=== PATIENT | female | born 1940 | race Caucasian/White ===

== ENCOUNTER 2023-03-06 14:23 | Outpatient (OUT) | payer MEDICARE, SELFPAY ==
--- NOTE | 2023-03-06 15:00 | CA_ITS ---
Patient: LARRY LOJA Exam Date: 03/06/2023 : 1940 Gender:F Ordering : DR KATIE GÓMEZ M.D. Admission #: [id number] Family : Order #: [id number] CLICK HERE TO VIEW EXAM ECHOCARDIOGRAM REPORT PROCEDURE: CA ECHO DOPPLER COMPLETE INDICATIONS: Shortness of breath, hypertension COMPARISON: None. DESCRIPTION: COMPLETE ECHOCARDIOGRAM Real-time transthoracic echocardiography with 2D, M-mode, spectral and color flow Doppler performed. QUALITY: Technical quality was good. LEFT VENTRICLE: Normal chamber size. Normal left ventricular wall thickness. Normal systolic function. LV EF: Normal left ventricular ejection fraction, (>55%). DIASTOLIC: Diastolic function is indeterminate. ATRIAL SEPTUM: Visually appears intact. LEFT ATRIUM: Mild dilatation. RIGHT ATRIUM: Normal chamber size. RIGHT VENTRICLE: Normal chamber size. Normal right ventricular systolic function. TRICUSPID VALVE: Normal mobility and thickness. No stenosis with mild regurgitation. No evidence of pulmonary hypertension. RVSP 33 mmHg MITRAL VALVE: Mildly thickened with normal mobility. No evidence of mitral valve stenosis. Mild mitral annular calcification. Trivial mitral regurgitation. AORTIC VALVE: Normal trileaflet appearance. No visible sclerosis. Normal leaflet mobility. No evidence of aortic valve stenosis. No aortic regurgitation. AORTIC ROOT: Normal diameter and appearance. PULMONIC VALVE: Normal thickness and mobility. No stenosis. No regurgitation. PERICARDIUM: No evidence of pericardial effusion. IVC: Collapses with inspirations. PLEURA: CONCLUSION: 1. Normal left ventricular systolic function. LVEF is 60 to 65%. 2. Normal right ventricular size and systolic function. 3. Mild tricuspid regurgitation. 4. Normal right-sided pressures. 5. No pericardial effusion. Adult Echocardiography Procedure Report Left Ventricle LVEDD (3.7 - 5.6 cm): 4.30 cm LVESD (2.2 - 4.0 cm): 2.95 cm LVIVS thickness (0.6 - 1.2 cm): 0.91 cm LVPW thickness (0.5 - 1.0 cm): 0.87 cm e': 0.07 m/s E - e': 6.62 LVOT Max Gradient: 2.50 mm[Hg] LVOT Area (cm2): 0.79 m/s Peak Velocity (LVOT): 0.79 m/s Mean Velocity (LVOT): 0.50 m/s LVOT Diameter 1.98 cm Left Atrium LA Volume Index (2D A2C): 37.82 ml/m2 Left Atrium Systolic Dimension: 3.12 cm Mitral Valve MV E to A Ratio: 0.49 Mitral Valve A-Wave Peak Velocity: 0.94 m/s Mitral Valve E-Wave Peak Velocity: 0.46 m/s Right Ventricle Aorta AO Root Diam: 3.19 cm Ascending Ao Diam: 2.59 cm Aortic Valve AoV Area (Peak Ubaldo): 3.20 cm2, 3.20 cm2 Peak Velocity(Antegrade Flow): 0.76 m/s Peak Gradient(Antegrade Flow): 2.32 mm[Hg] Tricuspid Valve Peak Velocity (Regurgitant Flow): 2.63 m/s, 2.81 m/s, 2.75 m/s Pulmonic Valve Peak Velocity: 0.94 m/s Peak Gradient: 4.12 mm[Hg], 3.04 mm[Hg] Right Atrium Right Atrium Systolic Pressure: 36.87 ml, 36.87 ml Dictated by: David Best M.D. on 03/06/2023 at 18:40 Approved by: David Best M.D. on 03/06/2023 at 18:43
== END 2023-03-06 14:24 | disposition home or self-care (01) ==
LOC: CARD 14:26
PROVIDERS: PCP Family Medicine; Visit Provider Internal Medicine Interventional Cardiology
DX: R06.02 Shortness of breath (principal); I07.1 Rheumatic tricuspid insufficiency
CPT/HCPCS: 93306

== ENCOUNTER 2023-06-20 11:25 | Outpatient (OUT) | payer MEDICARE, SELFPAY ==
--- NOTE | 2023-06-20 | XR_ITS ---
The [address] [address] Patient Name: LARRY LOJA MRN: [id number] date: 1940 Sex: F Assigned Patient Location: [facility] Current Patient Location: [facility] Accession/Order Number: [id number] Exam Date: 06/20/2023 11:47 Report Date: 06/20/2023 14:57 At the request of: LAINEY GRISSOM Procedure: XR hip BI w PEL 1V EXAMINATION: XR hip BI w PEL 1V HISTORY: M16.0; Primary osteoarthritis keiry hips ; chronic bilateral hip pain COMPARISON: No relevant comparison available. FINDINGS: RIGHT FINDINGS: BONES: Right hip replacement without evidence of hardware fracture or loosening. No bone fracture dislocation. SOFT TISSUES: No visible soft tissue swelling. OTHER: Negative. LEFT FINDINGS: BONES: Marked narrowing of left hip joint space with subchondral sclerosis and cysts. No fracture or dislocation. SOFT TISSUES: No visible soft tissue swelling. OTHER: Degenerative disc disease of lumbar spine. XR/XR hip BI w PEL 1V IMPRESSION: RIGHT CONCLUSION: Right hip replacement without evidence of hardware failure or acute abnormality. 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 Electronically authenticated by: JACKSON LARA Date: 06/20/2023 14:57
== END 2023-06-20 11:26 | disposition home or self-care (01) ==
LOC: RAD 11:26
PROVIDERS: PCP Family Medicine; Visit Provider Family Medicine
DX: M16.0 Bilateral primary osteoarthritis of hip (principal); Z96.641 Presence of right artificial hip joint; M16.12 Unilateral primary osteoarthritis, left hip
CPT/HCPCS: 73523

== ENCOUNTER 2023-08-06 08:20 | Outpatient (OUT) | payer MEDICARE, SELFPAY ==
[2023-08-06 08:42] LABS: Basophils Percent Auto 0.4 % (0.2-2.0); Eosinophils Absolute Auto 0.1 10^3/uL (0.0-0.7); Eosinophils Percent Auto 1.9 % (0.9-7.0); Hematocrit 42.2 % (36.0-48.0); Hemoglobin 13.2 g/dL (12.0-16.0); Immature Granulocytes Abs Auto 0.01 10^3/uL (0.00-0.03); Immature Granulocytes Pct Auto 0.2 % (0.0-0.5); Lymphocytes Absolute Auto 2.3 10^3/uL (1.2-3.8); Mean Corpuscular HGB Conc 31.3 g/dL (29.9-35.2); Mean Corpuscular Hemoglobin 29.1 pg (26.7-34.0); Mean Platelet Volume 9.7 fL (9.5-13.5); Monocytes Absolute Auto 0.5 10^3/uL (0.3-0.8); Monocytes Percent Auto 8.5 % (1.7-12.0); Neutrophils Absolute Auto 2.7 10^3/uL (1.4-6.5); Platelet Count 223 10^3/uL (150-450); Red Blood Count 4.54 10^6/uL (4.20-5.40); Red Cell Distribution Width 13.2 % (11.0-15.0); White Blood Count 5.7 10^3/uL (4.0-11.0)
[2023-08-06 11:00] LABS: Alanine Aminotransferase 24 U/L (14-59); Albumin Level 3.6 g/dL (3.4-5.0); Alkaline Phosphatase 72 U/L (46-116); Anion Gap 10.2; Aspartate Amino Transferase 21 U/L (15-37); BUN Creatinine Ratio 18.8; Bilirubin Total 0.5 mg/dL (0.2-1.0); Carbon Dioxide 30.7 mmol/L (21.0-32.0); Chloride 106 mmol/L (98-107); Chol HDL Ratio 1.9; Cholesterol 171 mg/dL (<=200); Estimated GFR (African America >60 (>=60); Estimated GFR (Non-African Ame >60 (>=60); Globulin 3.7 g/dL; Glucose 101 mg/dL (74-106); HDL Cholesterol 88 mg/dL (40-60); Potassium 3.9 mmol/L (3.5-5.1); Sodium 143 mmol/L (136-145); Total Protein 7.3 g/dL (6.4-8.2); Triglycerides 46 mg/dL (<=150); VLDL CHOLESTEROL 9.2 mg/dL
== END 2023-08-06 08:21 | disposition home or self-care (01) ==
LOC: LAB 08:21
PROVIDERS: PCP Family Medicine; Visit Provider Nurse Practitioner Acute Care
DX: I25.10 Atherosclerotic heart disease of native coronary artery without angina pectoris (principal)
CPT/HCPCS: 36415; 80053; 80061; 85025

== ENCOUNTER 2024-01-12 12:18 | Outpatient (OUT) | payer MEDICARE, SELFPAY ==
[2024-01-12 13:24] LABS: Basophils Percent Auto 0.1 % (0.2-2.0); Eosinophils Absolute Auto 0.1 10^3/uL (0.0-0.7); Hematocrit 41.4 % (36.0-48.0); Hemoglobin 13.1 g/dL (12.0-16.0); Immature Granulocytes Abs Auto 0.01 10^3/uL (0.00-0.03); Immature Granulocytes Pct Auto 0.1 % (0.0-0.5); Lymphocytes Absolute Auto 1.9 10^3/uL (1.2-3.8); Lymphocytes Percent Auto 27.5 % (20.5-60.0); Mean Corpuscular HGB Conc 31.6 g/dL (29.9-35.2); Mean Corpuscular Hemoglobin 28.7 pg (26.7-34.0); Mean Corpuscular Volume 90.8 fL (81.0-99.0); Mean Platelet Volume 11.1 fL (9.5-13.5); Monocytes Absolute Auto 0.5 10^3/uL (0.3-0.8); Monocytes Percent Auto 7.4 % (1.7-12.0); Neutrophils Absolute Auto 4.3 10^3/uL (1.4-6.5); Neutrophils Percent Auto 63.9 % (43.0-75.0); Platelet Count 232 10^3/uL (150-450); Red Blood Count 4.56 10^6/uL (4.20-5.40); Red Cell Distribution Width 13.1 % (11.0-15.0); White Blood Count 6.8 10^3/uL (4.0-11.0)
[2024-01-12 14:43] LABS: Free T4 1.16 ng/dL (0.76-1.46)
[2024-01-12 14:48] LABS: Alanine Aminotransferase 25 U/L (14-59); Albumin Level 3.7 g/dL (3.4-5.0); Alkaline Phosphatase 81 U/L (46-116); Anion Gap 11.2; Aspartate Amino Transferase 22 U/L (15-37); BUN Creatinine Ratio 16.7; Bilirubin Total 0.7 mg/dL (0.2-1.0); Calcium 9.5 mg/dL (8.5-10.1); Carbon Dioxide 31.2 mmol/L (21.0-32.0); Chloride 103 mmol/L (98-107); Estimated GFR (African America >60 (>=60); Estimated GFR (Non-African Ame >60 (>=60); Free T3 2.41 pg/mL (2.18-3.98); Globulin 3.6 g/dL; Glucose 101 mg/dL (74-106); Potassium 4.4 mmol/L (3.5-5.1); Sodium 141 mmol/L (136-145); Thyroid Stimulating Hormone 3.817 uIU/mL (0.358-3.740); Total Protein 7.3 g/dL (6.4-8.2)
== END 2024-01-12 12:19 | disposition home or self-care (01) ==
LOC: LAB 12:21
PROVIDERS: PCP Family Medicine; Visit Provider Internal Medicine Interventional Cardiology
DX: I44.1 Atrioventricular block, second degree (principal); R00.1 Bradycardia, unspecified
CPT/HCPCS: 36415; 80053; 84439; 84443; 84481; 85025

== ENCOUNTER 2024-07-24 12:37 | Emergency (ER) | payer MEDICARE, SELFPAY ==
[2024-07-24] VITALS (37 sets, daily range): BP systolic 59–165; BP diastolic 33–93; PULSE 70–112; TEMP 36.6; O2SAT 85–98; BMI 21.5
--- OUTSIDE RECORDS SUMMARY | 2024-07-24 12:48 | XMS_ITS | CCD ---
Author Organization [facility] Care Team Providers Care Company Doctor Name Role Phone DR JOSÉ MANUEL GRISSOM A Primary Care Unavailable GENE, DR DU Attending Unavailable GENE, DR DU Consulting Unavailable GENE, DR DU Admitting Unavailable OLI EDMONDS Referring Unavailable OSVALDOOLI Referring Unavailable DEENA MORALES Attending Unavailable RICO, ERYN Attending Unavailable ELMARTINEZ, ERYN Attending Unavailable RICO, ERYN Attending Unavailable OLI EDMONDS Referring Unavailable OSVALDO, OLI Admitting Unavailable OLI EDMONDS Attending Unavailable ROHAN MIRANDA Attending Unavailable José Manuel Grissom MD Primary Care Provider JOSÉ MANUEL GRISSOM Attending Unavailable SHAIKH CASTILLO Attending Unavailable JOSÉ MANUEL GRISSOM Attending Unavailable Medications Current Medications Medication Drug Class(es) Dates Sig (Normalized) Sig (Original) aspirin 81 mg delayed release oral tablet (4 sources) Platelet Aggregation Inhibitor, Nonsteroidal Anti-inflammatory Drug take 1 tablet by mouth in the morning aspirin 81 MG EC tablet Take 81 mg by mouth in the morning. Active atorvastatin 20 mg oral tablet (4 sources) HMG-CoA Reductase Inhibitor Start: 06-02-2023 take 1 tablet by mouth at bedtime atorvastatin (Lipitor) 20 MG tablet Take 20 mg by mouth at bedtime 06/02/2023 Active eluxadoline 100 mg oral tablet (5 sources) mu-Opioid Receptor Agonist Start: 06-07-2024 End: 06-10-2024 take 1 tablet by mouth in the morning Eluxadoline (Viberzi) 100 MG tablet Indications: Irritable bowel syndrome with diarrhea Take 100 mg by mouth in the morning and at noon 180 tablet 3 06/10/2024 Active 24 hr isosorbide mononitrate 60 mg extended release oral tablet (4 sources) Nitrate Vasodilator Start: 09-29-2023 take 1 tablet by mouth in the morning, then take 1 tablet by mouth every twenty-four hours isosorbide mononitrate ER (Imdur) 60 MG 24 hr tablet Take 60 mg by mouth in the morning. 09/29/2023 Active 24 hr metoprolol succinate 50 mg extended release oral tablet (6 sources) beta-Adrenergic Aleah Start: 06-02-2024 take 1 tablet by mouth once daily metoprolol succinate XL (Toprol-XL) 50 MG 24 hr tablet Take 50 mg by mouth Daily 06/02/2024 Active Start: 01-12-2024 End: 06-21-2024 take 1 tablet by mouth once daily metoprolol succinate XL (Toprol-XL) 25 MG 24 hr tablet Take 25 mg by mouth Daily 01/12/2024 06/21/2024 Discontinued Multiple Vitamin (multivitamin) tablet (4 sources) take 1 tablet by erickson th once daily Multiple Vitamin (multivitamin) tablet Take 1 tablet by mouth Daily Active Problems Active Problems Problem Classification Problem Date Documented Da te Episodic/Chronic Conduction disorders (14 sources) Presence of cardiac pacemaker; Translations: [Encounter for adjustment and management of automatic implantable cardiac defibrillator] Onset: 01-15-2024 Chronic Coronary atherosclerosis and other heart disease (14 sources) Atherosclerotic heart disease of [place] coronary artery without angina pectoris; Translations: [Atherosclerotic heart disease of [place] coronary artery with other forms of angina pectoris] Onset: 07-02-2022 Chronic Disorders of lipid metabolism (7 sources) Hyperlipidemia, unspecified; Translations: [Dyslipidemia] Onset: 07-07-2022 12-23-2023 Chronic Essential hypertension (6 sources) Benign essential hypertension; Translations: [Essential (primary) hypertension] Onset: 12-23-2023 12-23-2023 Chronic Hypertension with complications and secondary hypertension (6 sources) 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 heart failure; Translations: [Benign hypertensive heart disease without congestive heart failure] Onset: 01-15-2024 Chronic Osteoarthritis (6 sources) Primary coxarthrosis, bilateral; Translations: [Bilateral primary osteoarthritis of hip] Onset: 12-23-2023 12-23-2023 Chronic Other aftercare (4 sources) Long-term current use of drug therapy; Translations: [Other shelter (current) drug therapy] Onset: 06-21-2024 06-21-2024 Episodic Other gastrointestinal disorders (7 sources) Irritable bowel syndrome with diarrhea; Translations: [Irritable bowel syndrome with diarrhea] Onset: 12-23-2023 06-10-2024 Chronic Thyroid disorders (4 sources) Subclinical hypothyroidism; Translations: [Other specified hypothyroidism] Onset: 06-21-2024 06-21-2024 Chronic Past or Other Problems Problem Classification Problem Date Documented Da te Episodic/Chronic Cardiac dysrhythmias (6 sources) Bradycardia, unspecified; Translations: [Sinus bradycardia] Onset: 01-12-2024 Episodic Mycoses (4 sources) Onychomycosis; Translations: [Tinea unguium] Onset: 12-23-2023 Resolved: 06-21-2024 12-23-2023 Episodic Nonspecific chest pain (2 sources) Chest pain, unspecified; Translations: [Chest pain, unspecified] Onset: 01-12-2024 Episodic Other aftercare (4 sources) Post-discharge follow-up; Translations: [Encounter for follow-up examination after completed treatment for conditions other than malignant neoplasm] Onset: 01-20-2024 Resolved: 06-21-2024 01-20-2024 Episodic Residual codes; unclassified (2 sources) Other specified personal risk factors, not elsewhere classified; Translations: [Other specified personal risk factors, not elsewhere classified] Onset: 01-15-2024 Episodic Results Test Name Value Interpretation Reference Range Facility Office Visiton 04-19-2024 Follow-up visit [id number] Terri Handy 1940 F Date Provider Department Center 04/19/2024 Natacha-ERYN IRWIN Family History Problem Relation Age of Onset Coronary artery disease Mother Heart attack Father Family Status - Relation Status Age at Mother Father Level of Service:60815 OR OFFICE/OUTPATIENT ESTABLISHED MOD MDM 30 MIN [facility] Telephoneon 03-04-2024 Telephone [id number] Terri Handy 1940 F Date Provider Department Center 03/04/2024 IMANI BURK Family History Problem Relation Age of Onset Coronary artery disease Mother Heart attack Father Family Status - Relation Status Age at Mother Father [facility] Office Visiton 01-23-2024 Follow-up visit [id number] Terri Handy 1940 F Date Provider Department Center 01/23/2024 [id number]NANikolai CARD [facility] Family History Problem Relation Age of Onset Coronary artery disease Mother Heart attack Father Family Status - Relation Status Age at Mother Father Level of Service:79544 OR OFFICE/OUTPATIENT ESTABLISHED LOW MDM 20 MIN [facility] 30on 01-16-2024 30 Problem: Pain - Adul t Goal: Verbalizes/displays adequate comfort level or baseline comfort level Outcome: Progressing Problem: Safety - Adult Goal: Free from fall injury Outcome: Progressing Flowsheets (Taken 01/16/2024 0800) Free from fall injury: Assess patient frequently for physical needs Instruct patient to call for assistance with activity based on assessment Modify environment to reduce risk of injury Problem: Discharge Planning Goal: Discharge to home or other facility with appropriate resources Outcome: Progressing Problem: Chronic Conditions and Co-morbidities Goal: Patient's chronic conditions and co-morbidity symptoms are monitored and maintained or improved Outcome: Progressing The patient is Moderately Stable - Low risk of patient condition declining or worsening The patient's goals for the shift include comfort, rest The clinical goals for the shift include vss, safety [facility] 30 This report has been cancelled. [facility] DSon 01-16-2024 DS ---- -------- Attestation signed by Oli Edmonds MD at 01/17/2024 10:20 AM By using the attestations below, the signing clinician agrees that I have read and verify that the documentation has been personally reviewed by me and ensure that the documentation accurately reflects the encounter. GC: I personally saw this patient on the day of the encounter, performed the sherman portion(s) of the service and participated in the management and confirm the resident's documentation. Please note there may be an additional personal documentation from me. -------- Admission Admitted 01/15/2024 for Second degree AV block Discharge Diagnosis Second degree AV block S/p Dual chamber PPM Discharge Disposition Home or Self Care () Discharge Medications Your medication list START taking these medications Instructions Last Dose Given Next Dose Due doxycycline 100 mg capsule Commonly known as: Vibramycin Take 1 capsule (100 mg) by mouth in the morning and at bedtime for 26 doses. Take with at least 8 ounces (large glass) of water, do not lie down for 30 minutes after. Take all doses until bottle is empty. metoprolol succinate XL 50 mg 24 hr tablet Commonly known as: Toprol-XL Start taking on: January 17, 2024 Take 1 tablet (50 mg) by mouth in the morning. Do not crush or chew. Do not start before January 17, 2024. CONTINUE taking these medications Instructions Last Dose Given Next Dose Due aspirin 81 mg EC tablet atorvastatin 20 mg tablet Commonly known as: Lipitor Take 1 tablet (20 mg) by mouth at bedtime. isosorbide mononitrate ER 60 mg 24 hr tablet Commonly known as: Imdur TAKE 1 TABLET IN THE MORNING Viberzi 100 mg tablet Generic drug: eluxadoline STOP taking these medications NIFEdipine XL 30 mg 24 hr tablet Commonly known as: Procardia XL Where to Get Your Medications These medications were sent to [id number] - [place], [place] - [address] [facility] [address] [place] [address] doxycycline 100 mg capsule These medications were sent to [facility] - [place], [place] - [address] [facility] [address] [facility] [id number] metoprolol succinate XL 50 mg 24 hr tablet Activity For 1 month No driving for 1 month No strenuous activity for 1 month Range of motion restrictions: do not lift elbow above level of shoulder for 1 month. You can wear the sling as neeede to remind you of this No showering until dressing is removed Diet Allergies Patient has no known allergies. Hospital Course Terri Handy is a 83 y.o. female who resides in [place], [place]. 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 She had initial evaluation by Dr. Irwin, 01/12/24 at the [facility] for CP, SOB and bradycardia, with EKG showing 2nd degree AV block type II with 2:1 block. Her metoprolol XL was reduced to 25mg and event monitor placed. On 01/15/24 she was urgently evaluated by Dr. Deena Morales at our clinic for findings on event monitor of two 4-second pauses due to high-grade second-degree AV block and on the second it showed 5 bradycardia events due to severe sinus bradycardia associated with ventricular escape rhythm. She states that she still has occasional dizziness but they are usually brief, she denies syncope. She still has pounding of the heart. No chest pain since last visit. She denies exertional dyspnea, orthopnea or paroxysmal nocturnal dyspnea. She feels tired all the time. Plan to change metoprolol to nifedipine XL. She was sent to [facility] for urgent PPM for symptomatic bradycardia, due to combination of second-degree A-V block and occasional a profound sinus bradycardia with ventricular escape rhythm and prolonged pauses up to 4 seconds as described on the event monitor strips. Recommendation for nuc MPS to further evaluate SOB and CP, which had been ordered at prior visit. She had uneventful implant of DC PPM by Dr. Edmonds on 01/15/24. Postprocedure chest x-ray shows no pneumothorax, and this morning device interrogation shows normal function. Today patient says that she is did not feel well after taking this morning's dose of nifedipine, very much wanting to go home. Son is at bedside. Discussed findings, activity, lifting, and bathing restrictions with written information to print with AVS. Follow-up appointments have been made for wound care check, device clinic and MD follow-up. She will complete 2 weeks of antibiotics. She has been up and out of bed, denies CPOE, CHRISTIE, positional lightheadedness, palpitations, racing heart beats, syncope or near syncope, orthopnea, PND, lower extremity edema, GI or other bleeding. Discussed elevated blood pressures, with goal below 130/80, with combination of low-sodium diet, medication (more content not included)... [facility] NURSNOTEon 01-16-2024 NURSNOTE Discharge paperwork gone over and explained to pt. All questions answered at bedside. Denied further questions. Pt wheeled to main entrance where she was transported home by son. [facility] 30on 01-15-2024 30 The patient is Moderately Stable - Low risk of patient condition declining or worsening The patient's goals for the shift include The clinical goals for the shift include stable vs [facility] CONSULTon 01-15-2024 CONSULT [place] Electrophysiology Consult Note [place] [facility] - [facility] Reason for visit: Bradycardia HPI: Terri Handy is a 83 y.o. year old with past medical history of HLD/ HTN was sen by Dr Morales and noted to have bradycardia. She has fatigue and tiredness. She was seen by Dr. Gaviria and she was evaluated for chest pain and bradycardia. Her EKG showed at that time second-degree AV block type II with 2-1 block. At that time he reduced her metoprolol XL from 50 mg to 25 mg and she was provided with the event monitor which showed bradycardia events on couple days. On the first day she had two 4-second pauses due to high-grade second-degree AV block and on the second it showed 5 bradycardia events due to severe sinus bradycardia associated with ventricular escape rhythm She was told to come for follow-up visit and was seen by Dr Morales today at [place] She states that she still has occasional dizziness but they are usually brief, she denies syncope. She still has pounding of the heart. No chest pain since last visit. She denies exertional dyspnea, orthopnea or paroxysmal nocturnal dyspnea. She feels tired all the time The patient states that she is not aware that she snores during the night. She does not report sleepiness during the daytime before she had the bradycardia. PMH: Past Medical History: Diagnosis Date Abnormal ECG Coronary artery disease Hyperlipidemia Hypertension PSH: Past Surgical History: Procedure Laterality Date CARDIAC CATHETERIZATION TOTAL HIP ARTHROPLASTY SH: Social Determinants of Health Tobacco Use: Medium Risk (01/15/2024) Patient History Smoking Tobacco Use: Former Smokeless Tobacco Use: Never Passive Exposure: Not on file Alcohol Use: Not on file Financial Resource Strain: Not on file Food Insecurity: Not on file Transportation Needs: Not on file Physical Activity: Not on file Stress: Not on file Social Connections: Not on file Intimate Partner Violence: Unknown (10/30/2023) [place] Safety & Environment Fear of Current or Ex-Partner: Not on file Emotionally Abused: Not on file Physically Abused: Not on file Sexually Abused: Not on file Physically or Sexually Abused: Not on file Depression: Not on file Housing Stability: Not on file Utilities: Not on file Allergies: No Known Allergies Weight: @WEIGHT@ Visit Vitals BP (!) 181/64 Pulse 54 Resp 16 SpO2 97% Smoking Status Former Meds: No current facility-administered medications on file prior to encounter. Current Outpatient Medications on File Prior to Encounter Medication Sig Dispense Refill aspirin 81 mg EC tablet Take 81 mg by mouth in the evening. atorvastatin (Lipitor) 20 mg tablet Take 1 tablet (20 mg) by mouth at bedtime. 90 tablet 3 isosorbide mononitrate ER (Imdur) 60 mg 24 hr tablet TAKE 1 TABLET IN THE MORNING 90 tablet 3 Viberzi 100 mg tablet Take 100 mg by mouth in the morning. NIFEdipine XL (Procardia XL) 30 mg 24 hr tablet Take 1 tablet (30 mg) by mouth once daily as directed. Do not crush, chew, or split. 30 tablet 0 [DISCONTINUED] metoprolol succinate XL (Toprol-XL) 25 mg 24 hr tablet Take 1 tablet (25 mg) by mouth in the morning. Do not crush or chew. 90 tablet 3 [DISCONTINUED] metoprolol succinate XL (Toprol-XL) 50 mg 24 hr tablet Take 1 tablet (50 mg) by mouth in the morning. 90 tablet 3 ROS: Cardio Basic Cardiovascular Symptoms: no lightheadedness, no leg edema, no syncope, no orthopnea, no PND, no claudication, Constitutional Constitutional: no fever, no night sweats, no significant weight gain, no significant weight loss, no exercise intolerance Eyes Eyes: no dry eyes, no irritation, no vision change ENMT Ears: no difficulty hearing, no ear pain Nose: no frequent nosebleeds, Mouth/Throat: no sore throat, no bleeding gums, no snoring, no dry mouth, no mouth ulcers, no oral abnormalities, no teeth problems Respiratory Respiratory: no cough, no wheezing, no coughing up blood, no sleep apnea Musculoskeletal Musculoskeletal: no muscle aches, no muscle weakness, joint pain+, no back pain, no swelling in the extremities Integumentary Skin no rash, no ulcer, no varicosities, no discoloration, no pruritus Neurologic Neurologic: no loss of consciousness, no weakness, no numbness, no seizures, no dizziness, no headaches Psychiatric Psych: no depression, feeling safe in relationship, no alcohol abuse, Hematologic/Lymphatic Hematologic/Lymphatic no swollen glands, no bruising Physical Exam: Constitutional General Appearance: well-nourished, well-developed, appears stated age Level of Distress: comfortable Psychiatric Mental Status: alert, normal affect Orientation: oriented to time, place, and person Insight: good judgement Eyes Lids and Conjunctivae: non-injected, no xanthelasma ENMT Ears: no lesions on external ear Nose: no lesions on external nose Oropharynx: no cyanosis, no p (more content not included)... [facility] 01-15-2024 H&P reviewed. The patient was examined and there are no changes to the H&P. [facility] [place] Office Cardiology Clinic Note Reason for follow-up: Symptomatic bradycardia Chief Complaint: Chest pain, palpitation, dizziness HPI: Terri Handy is a 83 y.o. female who was seen few days ago in this office by Dr. Gaviria and she was evaluated for chest pain and bradycardia. Her EKG showed at that time second-degree AV block type II with 2-1 block. At that time he reduced her metoprolol XL from 50 mg to 25 mg and she was provided with the event monitor which showed bradycardia events on couple days. On the first day she had two 4-second pauses due to high-grade second-degree AV block and on the second it showed 5 bradycardia events due to severe sinus bradycardia associated with ventricular escape rhythm She was told to come for follow-up visit. She states that she still has occasional dizziness but they are usually brief, she denies syncope. She still has pounding of the heart. No chest pain since last visit. She denies exertional dyspnea, orthopnea or paroxysmal nocturnal dyspnea. She feels tired all the time The patient states that she is not aware that she snores during the night. She does not report sleepiness during the daytime before she had the bradycardia. Cardiology ROS: All systems were reviewed and they were negative except for the positive findings noted above in the history past Medical History She has a past medical history of Abnormal ECG, Coronary artery disease, Hyperlipidemia, and Hypertension. Surgical History She has a past surgical history that includes Cardiac catheterization and Total hip arthroplasty. Social History She reports that she quit smoking about 39 years ago. Her smoking use included cigarettes. She has never used smokeless tobacco. She reports current alcohol use. No history on file for drug use. Family History Family History Problem Relation Name Age of Onset Coronary artery disease Mother Heart attack Father Allergies Patient has no known allergies. Medications Current Outpatient Medications: aspirin 81 mg EC tablet, Take 81 mg by mouth in the morning., Disp: , Rfl: atorvastatin (Lipitor) 20 mg tablet, Take 1 tablet (20 mg) by mouth at bedtime., Disp: 90 tablet, Rfl: 3 isosorbide mononitrate ER (Imdur) 60 mg 24 hr tablet, TAKE 1 TABLET IN THE MORNING, Disp: 90 tablet, Rfl: 3 Viberzi 100 mg tablet, Take 100 mg by mouth in the morning., Disp: , Rfl: NIFEdipine XL (Procardia XL) 30 mg 24 hr tablet, Take 1 tablet (30 mg) by mouth once daily as directed. Do not crush, chew, or split., Disp: 30 tablet, Rfl: 0 Last Recorded Vitals Visit Vitals BP 174/58 (BP Location: Left arm, Patient Position: Sitting) Pulse (!) 42 Ht 1.626 m (5' 4 ) Wt 57.2 kg (126 lb) SpO2 96% BMI 21.63 kg/m??? Smoking Status Former BSA 1.61 m??? Physical Examination: GENERAL: alert and oriented x3, well developed, in no acute distress. HEAD: atraumatic, normocephalic. EYES: DARCY, EOMI. NECK: trachea midline, no JVD present, no carotid bruits present. CARDIAC: Bradycardic, S1, S2 present. RRR. No murmur, rubs, or gallops. RESPIRATORY: CTAB, no increased effort of breathing, no rales, rhonchi, or wheezing. ABDOMEN: soft, nontender, nondistended. EXTREMITIES: no lower extremity edema, peripheral pulses are 2+ bilaterally. No rash/skin discoloration present. NEURO: strength/sensation equal and symmetric in bilateral upper and lower extremities. PSYCH: appropriate mood, affect, and judgement. Last Images: EKG 01/12/2024 showed sinus rhythm with second-degree AV block heart rate 40 bpm, right axis deviation, nonspecific intraventricular conduction delay Cardiac catheterization 04/27/1998: 30% proximal circumflex Subtotal obstruction distal half posterior descending 20% proximal RCA Normal overall left ventricular systolic function Labs: 01/12/2024 White blood count 6.8, hemoglobin 13, platelets 252 Sodium 141, potassium 4.4, BUN 11, creatinine 0.66, glucose 101, GFR above 60, calcium 9.5 Total bilirubin 0.7, AST 22, ALT 25, alk phos 81, total protein 7.3 TSH 3.817(normal 0.358-3.74), free T32.4, free T41.16 Assessment and Plan: 1. Symptomatic bradycardia, due to combination of second-degree A-V block and occasional a profound sinus bradycardia as described on the event monitor strips. -I will discontinue Toprol-XL altogether -I think the patient need pacemaker I actually discussed that while the patient was in the office with data manager Dr. Edmonds and we will arrange for her to have the pacemaker placed later today. That was discussed with the patient and her son including the details of the procedure as well as the benefits and risks. She is agreeable. 2. Second degree AV block with high grade block on couple occasion causing prolonged pauses up to 4 seconds - Case Request EP Lab: Implant PPM 3. Sinus bradycardia, she had couple episodes with profound sinus bradycardia with ventricular es (more content not included)... [facility] NURSNOTEon 01-15-2024 NURSNOTE Chlorhexadine wipes and nasal antiseptic swab completed [facility] Office Visiton 01-15-2024 Follow-up visit [id number] Terri Handy 1940 F Date Provider Department Center 01/15/2024 [id number] MORALES Family History Problem Relation Age of Onset Coronary artery disease Mother Heart attack Father Family Status - Relation Status Age at Mother Father Level of Service:[id number] OR OFFICE/OUTPATIENT ESTABLISHED MOD MDM 30 MIN [facility] 36on 01-14-2024 36 Regarding critical reports on event monitor: MD Shruti Tompkins MA Caller: Unspecified (Today, 8:57 AM) She needs a pacemaker - 1. If she is having lightheadeness, dizziness or any symptoms while her heart rates are low, please inform the patient that I would recommend admission to the hospital and a PPM 2. If she is having no symptoms, please have her seen by Dr Edmonds or any GLOBAL SUPPLY CHAIN DIRECTOR sreekanth (today/tomorrow) to arrange for outpatient PPM Thanks Imani, can you please call her? [facility] 36 I have scanned in a few critical reports on patient's event monitor for you to view in her instructional media services technician. Thanks! [facility] Office Visiton 01-12-2024 Follow-up visit [id number] Chet Handykaron Holland 1940 F Date Provider Department Center 01/12/2024 ERYN CASTELLANO Family History Problem Relation Age of Onset Coronary artery disease Mother Heart attack Father Family Status - Relation Status Age at Mother Father Level of Service:81939 OR OFFICE/OUTPATIENT ESTABLISHED HIGH MDM 40 MIN [facility] Office Visiton 08-14-2023 Follow-up visit [id number] Christie Handyaustyn Holland 1940 F Date Provider Department Center 08/14/2023 ERYN CASTELLANO Family History Problem Relation Age of Onset Coronary artery disease Mother Heart attack Father Family Status - Relation Status Age at Mother Father Level of Service:11529 OR OFFICE/OUTPATIENT ESTABLISHED LOW MDM 20-29 MIN [facility] CBC AUTO DIFFon 07-02-2022 BASO # 0.0 103/ul Normal 0.0-0.1 [facility] Comment on above: Performed By: #### C BC #### [facility] [address] [address] [address] Miranda Anderson Basophils/100 WBC (Bld) 0.3 % Normal 0.2-2.0 [facility] Comment on above: Performed By: #### C BC #### [facility] [address] [place] [address] Dr. Miranda Anderson EO # 0.1 103/ul Normal 0.0-0.7 [facility] Comment on above: Performed By: #### C BC #### [facility] [address] [place] [address] Dr. Miranda Anderson Eosinophils/100 WBC (Bld) 2.1 % Normal 0.9-7.0 [facility] Comment on above: Performed By: #### C BC #### [facility] [address] [place] [address] Dr. Miranda Anderson Erythrocyte distribution width (RBC) [Ratio] 14.3 % Normal 11.0-15.0 [facility] Comment on above: Performed By: #### C BC #### [facility] [address] [place] [address] Dr. Miranda Anderson Hematocrit (Bld) [Volume fraction] 43.3 % Normal 36.0-48.0 [facility] Comment on above: Performed By: #### C BC #### [facility] [address] [place] [address] Dr. Miranda Anderson Hemoglobin (Bld) [Mass/Vol] 13.5 g/dL Normal 12.0-16.0 [facility] Comment on above: Performed By: #### C BC #### [facility] [address] [place] [address] Dr. Miranda Anderson IG # 0.01 10e3/ul Normal 0.00-0.03 [facility] Comment on above: Performed By: #### C BC #### [facility] [address] [place] [address] Dr. Miranda Anderson IG % 0.2 % Normal 0.0-0.5 [facility] Comment on above: Performed By: #### C BC #### [facility] [address] [place] [address] Dr. Miranda Anderson LYMPH # 3.3 103/ul Normal 1.2-3.8 [facility] Comment on above: Performed By: #### C BC #### [facility] [address] [place] [address] Dr. Miranda Anderson Lymphocytes/100 WBC (Bld) 51.6 % Normal 20.5-60.0 [facility] Comment on above: Performed By: #### C BC #### [facility] [address] [place] [address] Dr. Miranda Anderson MANUAL DIFF REQ NO Normal [facility] Comment on above: Performed By: #### C BC #### [facility] [address] [place] [address] Dr. Miranda Anderson MCH (RBC) [Entitic mass] 28.1 pg Normal 26.7-34.0 [facility] Comment on above: Performed By: #### C BC #### [facility] [address] [place] [address] Dr. Miranda Anderson MCHC (RBC) [Mass/Vol] 31.2 g/dL Normal 29.9-35.2 [facility] Comment on above: Performed By: #### C BC #### [facility] [address] [place] [address] Dr. Miranda Anderson MCV (RBC) [Entitic vol] 90.2 fL Normal 81.0-99.0 [facility] Comment on above: Performed By: #### C BC #### [facility] [address] [place] [address] Dr. Miranda Anderson MONO # 0.6 103/ul Normal 0.3-0.8 [facility] Comment on above: Performed By: #### C BC #### [facility] [address] [place] [address] Dr. Miranda Anderson Monocytes/100 WBC (Bld) 9.4 % Normal 1.7-12.0 [facility] Comment on above: Performed By: #### C BC #### [facility] [address] [place] [address] Dr. Miranda Anderson NEUT # 2.3 103/ul Normal 1.4-6.5 [facility] Comment on above: Performed By: #### C BC #### [facility] [address] [place] [address] Dr. Miranda Anderson Neutrophils/100 WBC (Bld) 36.4 % Critically low 43.0-75.0 [facility] Comment on above: Performed By: #### C BC #### [facility] [address] [place] [address] Dr. Miranda Anderson Platelet mean volume (Bld) [Entitic vol] 12.3 fL Normal 9.5-13.5 [facility] Comment on above: Performed By: #### C BC #### [facility] [address] [place] [address] Dr. Miranda Anderson PLT 241 103/ul Normal 150-450 [facility] Comment on above: Performed By: #### C BC #### [facility] [address] [place] [address] Dr. Miranda Anderson RBC 4.80 106/ul Normal 4.20-5.40 [facility] Comment on above: Performed By: #### C BC #### [facility] [address] [place] [address] Dr. Miranda Anderson WBC 6.3 103/ul Normal 4.0-11.0 [facility] Comment on above: Performed By: #### C BC #### [facility] [address] [place] [address] Dr. Miranda Anderson LIPID PROFILEon 07-02-2022 CHOL-HDL RATIO NORM SEE BELOW Normal [facility] Comment on above: Result Comment: 3.3 - 4.4 LOW RISK 4.4 - 7.1 AVERAGE RISK 7.1 - 11.0 MODERATE RISK >11.0 HIGH RISK Performed By: #### C MP, LIPID #### [facility] [address] [place] [address] Dr. Miranda Anderson Cholesterol [Mass/Vol] 142 mg/dL Normal <=200 [facility] Comment on above: Performed By: #### C MP, LIPID #### [facility] [address] [place] [address] Dr. Miranda Anderson Cholesterol in HDL [Mass/Vol] 71 mg/dL Critically high 40-60 [facility] Comment on above: Performed By: #### C MP, LIPID #### [facility] [address] [address] [address] Miranda Anderson Cholesterol in LDL [Mass/Vol] 61.2 mg/dL Normal [facility] Comment on above: Performed By: #### C MP, LIPID #### [facility] [address] [address] [address] Miranda Anderson Cholesterol.total /Cholesterol in HDL [Mass ratio] 2.0 {ratio} Normal [facility] Comment on above: Performed By: #### C MP, LIPID #### [facility] [address] [place] [address] Dr. Miranda Anderson HDL NORMAL > or = 60 mg/dl - LO W CARDIOVASCULAR RISK <40 mg/dl - HIGH CARDIOVASCULAR RISK Normal [facility] Comment on above: Performed By: #### C MP, LIPID #### [facility] [address] [place] [address] Dr. Miranda Anderson LDL CALC NORMAL SEE BELOW Normal The [facility] Comment on above: Result Comment: <100 mg/dl OPTIMAL 100 - 129 mg/dl NEAR OR ABOVE OPTIMAL 130 - 159 mg/dl BORDERLINE HIGH 160 - 189 mg/dl HIGH >190 mg/dl VERY HIGH Performed By: #### C MP, LIPID #### [facility] [address] [place] [address] Dr. Miranda Anderson Triglyceride [Mass/Vol] 49 mg/dL Normal <=150 [facility] Comment on above: Performed By: #### C MP, LIPID #### [facility] [address] [place] [address] Dr. Miranda Anderson VLDL CALC 9.8 mg/dL Normal [facility] Comment on above: Performed By: #### C MP, LIPID #### [facility] [address] [place] [address] Dr. Miranda Anderson PROF 14(COMP METB)on 022 Albumin [Mass/Vol] 3.5 g/dL Normal 3.4-5.0 [facility] Comment on above: Performed By: #### C MP, LIPID #### [facility] [address] [place] [address] Dr. Miranda Anderson Albumin/Globulin [Mass ratio] 1.0 {ratio} Normal [facility] Comment on above: Performed By: #### C MP, LIPID #### [facility] [address] [address] [address] Miranda Anderson ALP [Catalytic activity/Vol] 71 U/L Normal 46-116 [facility] Comment on above: Performed By: #### C MP, LIPID #### [facility] [address] [address] [address] Miranda Anderson ALT [Catalytic activity/Vol] 21 U/L Normal 14-59 [facility] Comment on above: Performed By: #### C MP, LIPID #### [facility] [address] [address] [address] Miranda Anderson Anion gap [Moles/Vol] 7.3 mmol/L Normal [facility] Comment on above: Performed By: #### C MP, LIPID #### [facility] [address] [address] [address] Miranda Anderson AST [Catalytic activity/Vol] 21 U/L Normal 15-37 [facility] Comment on above: Performed By: #### C MP, LIPID #### [facility] [address] [address] [address] Miranda Anderson Bilirubin [Mass/Vol] 0.4 mg/dL Normal 0.2-1.0 [facility] Comment on above: Performed By: #### C MP, LIPID #### [facility] [address] [address] [address] Miranda Anderson Calcium [Mass/Vol] 8.8 mg/dL Normal 8.5-10.1 [facility] Comment on above: Performed By: #### C MP, LIPID #### [facility] [address] [address] [address] Miranda Anderson Chloride [Moles/Vol] 106 mmol/L Normal 98-107 [facility] Comment on above: Performed By: #### C MP, LIPID #### [facility] [address] [address] [address] Miranda Anderson CO2 [Moles/Vol] 30.0 mmol/L Normal 21.0-32.0 [facility] Comment on above: Performed By: #### C MP, LIPID #### [facility] [address] [address] [address] Miranda Anderson Creatinine [Mass/Vol] 0.64 mg/dL Normal 0.55-1.02 [facility] Comment on above: Performed By: #### C MP, LIPID #### [facility] [address] [address] [address] Miranda Anderson EGFR-AF CYPRIOT >60 Normal >=60 [facility] Comment on above: Performed By: #### C MP, LIPID #### [facility] [address] [address] [address] Miranda Anderson EGFR-NON AF CYPRIOT >60 Normal >=60 [facility] Comment on above: Performed By: #### C MP, LIPID #### [facility] [address] [place] [address] Dr. Miranda Anderson Globulin (S) [Mass/Vol] 3.4 g/dL Normal [facility] Comment on above: Performed By: #### C MP, LIPID #### [facility] [address] [place] [address] Dr. Miranda Anderson Glucose [Mass/Vol] 91 mg/dL Normal 74-106 [facility] Comment on above: Performed By: #### C MP, LIPID #### [facility] [address] [place] [address] Dr. Miranda Anderson Potassium [Moles/Vol] 4.3 mmol/L Normal 3.5-5.1 [facility] Comment on above: Performed By: #### C MP, LIPID #### [facility] [address] [place] [address] Dr. Miranda Anderson Protein [Mass/Vol] 6.9 g/dL Normal 6.4-8.2 [facility] Comment on above: Performed By: #### C MP, LIPID #### [facility] [address] [address] [address] Miranda Anderson Sodium [Moles/Vol] 139 mmol/L Normal 136-145 [facility] Comment on above: Performed By: #### C MP, LIPID #### [facility] [address] [place], [place] [address] Dr. Miranda Anderson Urea nitrogen [Mass/Vol] 12.0 mg/dL Normal 7.0-18.0 [facility] Comment on above: Performed By: #### C MP, LIPID #### [facility] [address] [place], [place] [address] Dr. Miranda Anderson Urea nitrogen/Creatini ne [Mass ratio] 18.8 mg/mg Normal [facility] Comment on above: Performed By: #### C MP, LIPID #### [facility] [address] [place], [place] [address] Dr. Miranda Anderson Vital Signs Date Time Vital Sign Value Performing Clinician Faci lity 06-21-2024 13:09-0400 Body height 162.6 cm José Manuel Grissom MD Work Phone: [facility] 06-21-2024 13:09-0400 Body mass index (BMI) [Ratio] 21.28 kg/m2 José Manuel Grisosm MD Work Phone: [facility] 06-21-2024 13:09-0400 Body temperature 97.5 [degF] José Manuel Grissom MD Work Phone: [facility] 06-21-2024 13:09-0400 Body weight 56.25 kg José Manuel Grissom MD Work Phone: [facility] 06-21-2024 13:09-0400 Diastolic blood pressure 56 mm[Hg] José Manuel Grissom MD Work Phone: [facility] 06-21-2024 13:09-0400 Heart rate 70 /min José Manuel Grissom MD Work Phone: [facility] 06-21-2024 13:09-0400 Respiratory rate 20 /min José Manuel Grissom MD Work Phone: [facility] 06-21-2024 13:09-0400 SaO2% (BldA) [Mass fraction] 99 % José Manuel Grissom MD Work Phone: [facility] 06-21-2024 13:09-0400 Systolic blood pressure 140 mm[Hg] José Manuel Grissom MD Work Phone: [facility] Encounters Encounter Date Encounter Type Care Provider Facility Start: 06-21-2024 End: 06-21-2024 [place] flowsheet José Manuel Grissom MD Work Phone: [facility] Start: 06-21-2024 End: 06-21-2024 [facility] flowsheet José Manuel Grissom MD Work Phone: [facility] Start: 06-21-2024 End: 06-21-2024 Office outpatient visit 25 minutes José Manuel Grissom MD Work Phone: [facility] Comment on above: Benign essential hyp ertension (CMS/HCC) (Primary Dx); Irritable bowel syndrome with diarrhea; Primary osteoarthritis of both hips; CAD in [place] artery (CMS/HCC); Dyslipidemia (CMS/HCC); Subclinical hypothyroidism (CMS/HCC); Encounter for long-term current use of medication Start: 06-21-2024 End: 06-21-2024 ambulatory JOSÉ MANUEL GRISSOM Not Available Start: 06-10-2024 End: 06-10-2024 Refill José Manuel Grissom MD Work Phone: [facility] Comment on above: Irritable bowel synd thang with diarrhea Start: 04-19-2024 End: 04-19[facility]: 02-24-[facility]24 End: 02-24-2024 ambulatory [facility] Start: 01-23-2024 End: 01-23-2024 [facility] Start: 01-20-2024 End: 01-20-2024 ambulatory SHAIKH JONATHAN Not Available Start: 01-16-2024 Evaluation and manag ement of inpatient [facility] Start: 01-15-2024 End: 01-16-2024 Evaluation and management of inpatient [facility] Start: 01-15-2024 End: 01-15-2024 ambulatory [facility] Start: 01-12-2024 End: 01-12-2024 ambulatory [facility] Start: 12-23-2023 End: 12-23-2023 ambulatory JOSÉ MANUEL GRISSOM Not Available Start: 08-14-2023 End: 08-14-2023 ambulatory [facility] Start: 07-02-2022 End: 07-03-[address] JOSÉ MANUEL GRISSOM Facility: Plan of Treatment Date Care Activity Detail Author Start: 06-21-2025 Medicare Annual Well ness (AWV) Medicare Annual Wellness (AWV) [facility] Start: 12-20-2024 End: 12-20-2024 Patient encounter procedure 12/20/2024 1:00 PM EDT Office Visit [facility] [address] [place] [id number] José Manuel Grissom MD [address] [place] [id number] [facility] Start: 06-21-2024 End: 06-21-2025 Basic metabolic 1998 panel - Serum or Plasma Basic metabolic panel Lab Routine Benign essential hypertension (CMS/HCC) Expected: 06/21/2024 (Approximate), Expires: 06/21/2025 [facility] Work Phone: Comment on above: Expected: 06/21/2024 (Approximate), Expires: 06/21/2025 Start: 06-21-2024 End: 06-21-2025 CBC W Auto Differential panel - Blood CBC and differential Lab Routine Encounter for long-term current use of medication Expected: 06/21/2024 (Approximate), Expires: 06/21/2025 [facility] Comment on above: Expected: 06/21/2024 (Approximate), Expires: 06/21/2025 Start: 06-21-2024 End: 06-21-2025 Hepatic function 2000 panel - Serum or Plasma Hepatic function panel Lab Routine Encounter for long-term current use of medication Expected: 06/21/2024 (Approximate), Expires: 06/21/2025 [facility] Comment on above: Expected: 06/21/2024 (Approximate), Expires: 06/21/2025 Start: 06-21-2024 End: 06-21-2025 Lipid 1996 panel - Serum or Plasma Lipid panel Lab Routine Dyslipidemia ([facility]/HCC) Expected: 06/21/2024 (Approximate), Expires: 06/21/2025 [facility] Comment on above: Expected: 06/21/2024 (Approximate), Expires: 06/21/2025 Start: 06-21-2024 End: 06-21-2025 Thyrotropin [Units/volume] in Serum or Plasma TSH Lab Routine Subclinical hypothyroidism ([facility]/HCC) Expected: 06/21/2024 (Approximate), Expires: 06/21/2025 [facility] Comment on above: Expected: 06/21/2024 (Approximate), Expires: 06/21/2025 Start: 06-21-2024 End: 06-21-2025 Thyroxine (T4) free [Mass/volume] in Serum or Plasma T4, free Lab Routine Subclinical hypothyroidism (CMS/HCC) Expected: 06/21/2024 (Approximate), Expires: 06/21/2025 [facility] Comment on above: Expected: 06/21/2024 (Approximate), Expires: 06/21/2025 Start: 06-21-2024 End: 06-21-2025 Triiodothyronine (T3) Free [Mass/volume] in Serum or Plasma T3, free Lab Routine Subclinical hypothyroidism ([facility]/HCC) Expected: 06/21/2024 (Approximate), Expires: 06/21/2025 [facility] Comment on above: Expected: 06/21/2024 (Approximate), Expires: 06/21/2025 Start: 06-21-2024 End: 06-21-2024 Patient encounter procedure [facility] Comment on above: Arrived Start: 05-09-2024 Influenza vaccination Influenza Vacc ine (#1) [facility] Start: 1946 Pneumococcal Vaccine : 65+ Years (1 of 2 - PCV) Pneumococcal Vaccine: 65+ Years (1 of 2 - PCV) [facility] Start: 1940 Medicare Annual Well ness (AWV) Medicare Annual Wellness (AWV) [facility] Immunizations Immunization Date Immunization Notes Care Provider Fa cility 06-03-2024 influenza virus vacc ine, unspecified formulation José Manuel Grissom MD Work Phone: [facility] 06-06-2023 influenza virus vacc ine, unspecified formulation José Manuel Grissom MD Work Phone: [facility] Payers Date Payer Category Payer Medicare [employer] MED[employer] ADVANTAGE [employer] MED[employer]ARE [id number] 2017-Present [address] [place] [id number] 2017 Medicare (Managed Care) [employer] EDICARE ADVANTAGE [id number] 1959 Medicare [id number] 1940 Unknown [id number] 1940 Unknown [id number] 1940 Unknown [id number] 1940 Unknown [id number] Social History Date Type Detail Facility Start: [facility]-20-2024 [facility] History of tobacco use Current smoker [facility] History of tobacco use Cigarette Smoker [facility] History of tobacco use Passive smoker [facility] Start: 01-20-2024 Tobacco use and exposure Smokeless t obacco non-user [facility] Start: 01-20-2024 End: 06-21-2024 Alcoholic beverage intake Current drinker of alcohol (finding) [facility] Start: 01-20-2024 End: 06-21-2024 History of Social function [facility] Start: 01-20-2024 End: 06-21-2024 Tobacco use panel [facility] Start: 01-20-2024 Alcohol Comment [facility]ASS[facility]AL [facility] Start: 1940 Sex assigned at Not on file N [facility] Clinical Notes 08-14-2023 to 06-21-2024 José Manuel Grissom MD - 06/21/2024 1:24 PM EDTMabhishek Grissom MD - 06/21/2024 1:24 PM EDTMabhishek Grissom MD - 06/21/2024 1:24 PM EDTMabhishek Grissom MD - 06/21/2024 1:23 PM EDT Note Date & Type Note Facility 06-21-2024 History of Present illness Narrative Associated Problem(s): Primary osteoarthritis of both hips Occasional pain and stiffness but tolerable. Use OTC PRN. Increase activity and walking. Associated Problem(s): Irritable bowel syndrome with diarrhea Symptoms controlled with viberzi and continue. Associated Problem(s): CAD in [place] artery (CMS/HCC) No pain and follow with cardiology. Associated Problem(s): Benign essential hypertension (CMS/HCC) BP controlled and monitor PRN. Images from the original note were not included. Subjective Patient ID: Terri Handy is a 83 y.o. female who presents for Follow-up (6 m). Follow up HTN, IBS, OA hip, and CAD. Patient feels well today. Checking BP PRN and typically controlled. BP normal today. Taking medication daily and tolerating without side effects. IBS controlled with viberzi. Occasional abdominal pain and cramping but tolerable. Not having urgency for BM. Not having diarrhea and able to go out to eat and do more. OA hip unchanged. Pain with walking and standing. Pain worse at end of day. Not limiting activity. Using OTC arthritis cream and not always controlling pain. CAD controlled. No chest pain and following with cardiology. Cardiology wanted to repeat stress test but declined. Review of Systems Respiratory: Negative for cough, shortness of breath and wheezing. Cardiovascular: Negative for chest pain and palpitations. Gastrointestinal: Negative for abdominal pain, diarrhea, nausea and vomiting. Genitourinary: Negative for dysuria. Objective Physical Exam Constitutional: General: She is not in acute distress. Appearance: Normal appearance. HENT: Head: Normocephalic. Right Ear: Tympanic membrane normal. Left Ear: Tympanic membrane normal. Eyes: Extraocular Movements: Extraocular movements intact. Pupils: Pupils are equal, round, and reactive to light. Cardiovascular: Rate and Rhythm: Normal rate and regular rhythm. Heart sounds: No murmur heard. No friction rub. No gallop. Pulmonary: Effort: Pulmonary effort is normal. Breath sounds: Normal breath sounds. No wheezing, rhonchi or rales. Abdominal: General: Bowel sounds are normal. There is no distension. Palpations: Abdomen is soft. Tenderness: There is no abdominal tenderness. There is no guarding or rebound. Musculoskeletal: Cervical back: Neck supple. Right lower leg: No edema. Left lower leg: No edema. Neurological: Mental Status: She is alert. Assessment/Plan Problem List Items Addressed This Visit CAD in [place] artery (CMS/HCC) No pain and follow with cardiology. Dyslipidemia (CMS/HCC) Relevant Orders Lipid panel Irritable bowel syndrome with diarrhea Symptoms controlled with viberzi and continue. Primary osteoarthritis of both hips Occasional pain and stiffness but tolerable. Use OTC PRN. Increase activity and walking. Benign essential hypertension (CMS/HCC) - Primary BP controlled and monitor PRN. Relevant Orders Basic metabolic panel Encounter for long-term current use of medication Relevant Orders CBC and differential Hepatic function panel Subclinical hypothyroidism (CMS/HCC) Relevant Orders TSH T4, free T3, free documented in this encounter [facility] 04-19-2024 Note [facility] Cardiology Clinic Note Chief Complaint: Patient here for 3 mo follow up chest pain, CAD, and AV block s/p PPM placement in January [address] Edmonds. Lexiscan was never completed due to need for PPM. She states she's still having intermittent chest pain. It woke her up during the night last week. C/o fatigue and SOB w/wo exertion. Denies palpitations and lightheadedness. HPI: Terri Handy is a 83 y.o. female With a history of mild coronary artery disease, recent pacemaker placement here in routine follow-up Feels much better after pacemaker placement; no significant lightheadedness, dizziness, syncope Still has intermittent chest heaviness with exertion. Lasts for seconds or minutes and resolves. No orthopnea, no paroxysmal external dyspnea, no lower extremity edema Cardiology ROS: Review of Systems Constitutional: Positive for malaise/fatigue. Cardiovascular: Positive for chest pain and dyspnea on exertion. Respiratory: Positive for shortness of breath. Musculoskeletal: Positive for arthritis and joint pain. All other systems reviewed and are negative. Past Medical History She has a past medical history of Abnormal ECG, Coronary artery disease, Hyperlipidemia, and Hypertension. Surgical History She has a past surgical history that includes Cardiac catheterization and Total hip arthroplasty. Social History She reports that she quit smoking about 39 years ago. Her smoking use included cigarettes. She has never used smokeless tobacco. She reports current alcohol use. No history on file for drug use. Family History Family History Problem Relation Name Age of Onset Coronary artery disease Mother Heart attack Father Allergies Patient has no known allergies. Medications Current Outpatient Medications: aspirin 81 mg EC tablet, Take 81 mg by mouth in the evening., Disp: , Rfl: atorvastatin (Lipitor) 20 mg tablet, Take 1 tablet (20 mg) by mouth at bedtime., Disp: 90 tablet, Rfl: 3 isosorbide mononitrate ER (Imdur) 60 mg 24 hr tablet, TAKE 1 TABLET IN THE MORNING, Disp: 90 tablet, Rfl: 3 metoprolol succinate XL (Toprol-XL) 50 mg 24 hr tablet, Take 1 tablet (50 mg) by mouth in the morning. Do not crush or chew., Disp: 90 tablet, Rfl: 3 Viberzi 100 mg tablet, Take 100 mg by mouth in the morning., Disp: , Rfl: Last Recorded Vitals BP 140/72 (BP Location: Left arm, Patient Position: Sitting) Pulse 70 Ht 1.626 m (5' 4 ) Wt 56.2 kg (124 lb) SpO2 92% BMI 21.28 kg/m??? Physical Examination: GENERAL: alert and oriented x3, well developed, in no acute distress. HEAD: atraumatic, normocephalic. EYES: DARCY, EOMI. NECK: trachea midline, no JVD present, no carotid bruits present. CARDIAC: S1, S2 present. RRR. No murmur, rubs, or gallops. RESPIRATORY: CTAB, no increased effort of breathing, no rales, rhonchi, or wheezing. ABDOMEN: soft, nontender, nondistended. EXTREMITIES: no lower extremity edema, peripheral pulses are 2+ bilaterally. No rash/skin discoloration present. NEURO: strength/sensation equal and symmetric in bilateral upper and lower extremities. PSYCH: appropriate mood, affect, and judgement. DUAL CHAMBER PACEMAKER IMPLANT PROCEDURE NOTE DATE OF PROCEDURE: 01/15/24 PERFORMING PHYSICIAN: Dr. Oli Edmonds CONSENT: Patient LOCATION: EP Lab PROCEDURE PERFORMED: 1. Implantation of pacemaker (Biotronik) 2. Ultrasound guided venous access INDICATIONS: 1. Bradycardia with symptoms 2. 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 Moderate sedation was administered by the sedation nurse under my supervision and noted in the CVL log. Intraprocedural face to face sedation time: 49min. Monitoring: Cardiac telemetry, Blood pressure, continuous pulse oxymetry. FLUOROSCOPY TIME: 3.4min/ mGray. EBL: 15cc SPECIMEN REMOVED: None POST PROCEDURE EXAM: Patient was hemodynamically stable. COMPLICATIONS: None. IMPRESSION: 1. Successful dual chamber pacemaker with excellent pacing and sensing parameters. RECOMMENDATIONS: 1. Occlusive dressing to be removed after 2 weeks. 2. Do not wet the incision for 7 days. 3. No lifting heavy weights using arm on the same side x 3weeks 4. Do not lift elbow above the shoulder on the same side for 4-6 weeks. 5. No driving for 1 month. 6. F/u in device clinic 1 week from discharge or sooner for any concerns. 7. Doxycycline 100mg bid x 2 weeks Oli Edmonds MD Cardiac Electrophysiology Cardiac catheterization 04/27/1998: 30% proximal circumflex Subtotal obstruction distal half posterior descending 20% proximal RCA Normal overall left ventricular systolic function LABS 06/2022 HDL 72, LDL 68 12-lead EKG 08/12/2022 Sinus, 62 bpm, 1st degree AV block, RBBB Echocardiogram 02/2023: Conclusion: 1. Normal left ventricular systolic function. LVEF is 60 to 65%. 2. Normal right ventricular size and systolic function. 3. Mild tricuspid regurgitation. (more content not included)... [facility] 01-23-2024 Note [place] [facility] Note Reason for follow-up: Site check following device placement HPI: Terri Handy is a 83 y.o. 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 She is s/p device implant on 01/[address] Edmonds. She presents for site check. Patient adamantly denies any cardiac complaints or concerns. Patient denies any chest pain or shortness of breath. Patient denies any lower extremity edema, orthopnea, or proximal nocturnal dyspnea. No near-syncope or syncope. No dizziness or lightheadedness. No fevers or chills. No hematoma. No discharge from site. Cardiology ROS: All systems were reviewed and they were negative except for the positive findings noted above in the history past Medical History She has a past medical history of Abnormal ECG, Coronary artery disease, Hyperlipidemia, and Hypertension. Surgical History She has a past surgical history that includes Cardiac catheterization and Total hip arthroplasty. Social History She reports that she quit smoking about 39 years ago. Her smoking use included cigarettes. She has never used smokeless tobacco. She reports current alcohol use. No history on file for drug use. Family History Family History Problem Relation Name Age of Onset Coronary artery disease Mother Heart attack Father Allergies Patient has no known allergies. Medications Current Outpatient Medications: aspirin 81 mg EC tablet, Take 81 mg by mouth in the evening., Disp: , Rfl: atorvastatin (Lipitor) 20 mg tablet, Take 1 tablet (20 mg) by mouth at bedtime., Disp: 90 tablet, Rfl: 3 isosorbide mononitrate ER (Imdur) 60 mg 24 hr tablet, TAKE 1 TABLET IN THE MORNING, Disp: 90 tablet, Rfl: 3 metoprolol succinate XL (Toprol-XL) 50 mg 24 hr tablet, Take 1 tablet (50 mg) by mouth in the morning. Do not crush or chew. Do not start before January 17, 2024., Disp: 30 tablet, Rfl: 0 Viberzi 100 mg tablet, Take 100 mg by mouth in the morning., Disp: , Rfl: Last Recorded Vitals Visit Vitals BP 126/78 (BP Location: Right arm, Patient Position: Sitting) Pulse 71 Ht 1.626 m (5' 4 ) Wt 57.2 kg (126 lb) SpO2 95% BMI 21.63 kg/m??? Smoking Status Former BSA 1.61 m??? Physical Examination: GENERAL: alert and oriented x3, well developed, in no acute distress. HEAD: atraumatic, normocephalic. EYES: DARCY, EOMI. NECK: trachea midline, no JVD present, no carotid bruits present. CARDIAC: Bradycardic, S1, S2 present. RRR. No murmur, rubs, or gallops. RESPIRATORY: CTAB, no increased effort of breathing, no rales, rhonchi, or wheezing. ABDOMEN: soft, nontender, nondistended. EXTREMITIES: no lower extremity edema, peripheral pulses are 2+ bilaterally. No rash/skin discoloration present. NEURO: strength/sensation equal and symmetric in bilateral upper and lower extremities. PSYCH: appropriate mood, affect, and judgement. Last Images: EKG 01/12/2024 showed sinus rhythm with second-degree AV block heart rate 40 bpm, right axis deviation, nonspecific intraventricular conduction delay Cardiac catheterization 04/27/1998: 30% proximal circumflex Subtotal obstruction distal half posterior descending 20% proximal RCA Normal overall left ventricular systolic function Labs: 01/12/2024 White blood count 6.8, hemoglobin 13, platelets 252 Sodium 141, potassium 4.4, BUN 11, creatinine 0.66, glucose 101, GFR above 60, calcium 9.5 Total bilirubin 0.7, AST 22, ALT 25, alk phos 81, total protein 7.3 TSH 3.817(normal 0.358-3.74), free T32.4, free T41.16 Assessment and Plan: 1. Symptomatic bradycardia, due to combination of second-degree A-V block and occasional a profound sinus bradycardia , s/p pacemaker - No complaints -No fevers or chills. Site is clean, dry, and intact Patient will follow up with her Cardioloigist, Dr. Morales, for management of her cardiac issues. She has no active complaints at this time. Rohan Miranda MD [facility] 01-16-2024 Note 01/16/24 1021 Admission Assessment Questions Verify insurance with patient Yes Do you understand medical disease or what brought you into the hospital? Yes Who is your current PCP? José Manuel Grissom MD Can I schedule a follow up appointment for you at the time of discharge? Yes Do you understand why you are taking your current medications? Yes Are you taking your medications as prescribed? Yes Did patient provide teach back? Yes Would you like use our pharmacy [facility] to fill your new medications at the time of Discharge? [facility] [place] Does the patient have a caseworker protective services assigned to them through their insurance? No Living Arrangement (Current/Prior to Hospitalization) Private residence;Home self care (lives alone. 2 story home w/bed and bath on first floor. Laundry in basement.) Does the patient have history of HHC or SNF? Yes ([facility] in [place] after hip surgery) Assistive Device Cane Patient's goal for discharge Home Was patient reminded that goal for discharge is 11am? Yes Does the patient have transportation at discharge? Yes (transportation) Type of Residence/Post Acute Needs Private residence Is PT/OT appropriate? No Is PT/OT ordered? No Is SW consult appropriate? No Is SW consult ordered? No Do you understand the benefits of MyChart? Yes Were you able to send link and activate MyChart? Yes [facility] 01-15-2024 Note DUAL CHAMBER PACEMAK ER IMPLANT PROCEDURE NOTE DATE OF PROCEDURE: 01/15/24 PERFORMING PHYSICIAN: Dr. Oli Edmonds CONSENT: Patient LOCATION: EP Lab PROCEDURE PERFORMED: 1. Implantation of pacemaker (Biotronik) 2. Ultrasound guided venous access INDICATIONS: 1. Bradycardia with symptoms 2. 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 Moderate sedation was administered by the sedation nurse under my supervision and noted in the CVL log. Intraprocedural face to face sedation time: 49min. Monitoring: Cardiac telemetry, Blood pressure, continuous pulse oxymetry. FLUOROSCOPY TIME: 3.4min/ mGray. EBL: 15cc SPECIMEN REMOVED: None PROCEDURAL DETAILS: Patient was placed in trendelenberg position and ultrasound was used to evaluate the patency of left axillary vein and for venous access. Left axillary venous access was obtained using modified seldinger technique using a 5 Spanish micro-puncture needle on two occasions and 0.35 wires were placed. Local infiltration of 1% Lidocaine was performed, and an incision was created in the left upper chest. Dissection was then performed using cautery down to the fascial plane above the muscle. The belly of the pectoralis was identified and with gentle blunt dissection a small pocket was created for the device above the muscle. 6 Spanish Safesheaths were placed over the wire. An active fixation Biotronik pacing lead was then delivered through the 6Fsheath tothe right ventricle. After confirmation of lead position on orthogonal views (WREN and HAITIAN) to confirm septal position, the screw was activated, and the lead was placed in the right ventricular mid cavity towards the septum. After confirmation of good sensing parameters, injury pattern and pacing thresholds, 10V pacing was done and no diaphragmatic stimulation was noted. It was then secured in the pocket using three 1-0 Silk sutures. Then an active fixation Biotronik lead was delivered through the 6Fsheath to the right atrial appendage. After confirmation of lead position on orthogonal views (WREN and HAITIAN), the screw was activated. Good sensing parameters, injury pattern and pacing thresholds, the lead was then tested using Lambert's maneuver. 10V pacing was done and no diaphragmatic stimulation was noted. It was then secured in the pocket using three 1-0 Silk sutures. Pocket hemostasis was secured, and it was then copiously and vigorously irrigated with antibiotic solution. The leads were attached to the generator and then wrapped under the device and the device was tacked to underlying muscle and placed in the pocket. The pocket was closed in layers: subcutaneous layer using 2-0 Vicryl; skin using 3-0 absorbable monofilament suture. Glue was applied and Tegaderm dressing was placed on top. Lead parameters were then rechecked through the device as noted below. The patient was returned to the short stay room for post procedural observation. No immediate procedural complications were noted. POST PROCEDURE EXAM: Patient was hemodynamically stable. COMPLICATIONS: None. IMPRESSION: 1. Successful dual chamber pacemaker with excellent pacing and sensing parameters. RECOMMENDATIONS: 1. Occlusive dressing to be removed after 2 weeks. 2. Do not wet the incision for 7 days. 3. No lifting heavy weights using arm on the same side x 3weeks 4. Do not lift elbow above the shoulder on the same side for 4-6 weeks. 5. No driving for 1 month. 6. F/u in device clinic 1 week from discharge or sooner for any concerns. 7. Doxycycline 100mg bid x 2 weeks Oli Edmonds MD Cardiac Electrophysiology [facility] 01-15-2024 Note Patient: Terri Handy Procedure Information Date/Time: 01/15/241599 Procedure: Implant PPM - URGENT per Dr. Morales and Dr. Edmonds Location: [facility] AUDIO VISUAL TECHNICIAN 1 / [facility] (Cath) Providers: Oli Edmonds MD Clinical information reviewed: Tobacco Allergies Meds Med Hx Surg Hx Fam Hx Physical Exam Airway Mallampati: II TM distance: >3 FB Neck ROM: full Cardiovascular Dental Pulmonary Abdominal Anesthesia Plan ASA 2 CSE Anesthetic plan and risks discussed with patient. Use of blood products discussed with patient who. Additional Equipment Requests [facility] 01-15-2024 Note [place] [facility] Note Reason for cardiology consult: [facility] 01-15-2024 Note [place] [facility] Note Reason for follow-up: Symptomatic bradycardia Chief Complaint: Chest pain, palpitation, dizziness HPI: Terri Handy is a 83 y.o. female who was seen few days ago in this office by Dr. Gaviria and she was evaluated for chest pain and bradycardia. Her EKG showed at that time second-degree AV block type II with 2-1 block. At that time he reduced her metoprolol XL from 50 mg to 25 mg and she was provided with the event monitor which showed bradycardia events on couple days. On the first day she had two 4-second pauses due to high-grade second-degree AV block and on the second it showed 5 bradycardia events due to severe sinus bradycardia associated with ventricular escape rhythm She was told to come for follow-up visit. She states that she still has occasional dizziness but they are usually brief, she denies syncope. She still has pounding of the heart. No chest pain since last visit. She denies exertional dyspnea, orthopnea or paroxysmal nocturnal dyspnea. She feels tired all the time The patient states that she is not aware that she snores during the night. She does not report sleepiness during the daytime before she had the bradycardia. Cardiology ROS: All systems were reviewed and they were negative except for the positive findings noted above in the history past Medical History She has a past medical history of Abnormal ECG, Coronary artery disease, Hyperlipidemia, and Hypertension. Surgical History She has a past surgical history that includes Cardiac catheterization and Total hip arthroplasty. Social History She reports that she quit smoking about 39 years ago. Her smoking use included cigarettes. She has never used smokeless tobacco. She reports current alcohol use. No history on file for drug use. Family History Family History Problem Relation Name Age of Onset Coronary artery disease Mother Heart attack Father Allergies Patient has no known allergies. Medications Current Outpatient Medications: aspirin 81 mg EC tablet, Take 81 mg by mouth in the morning., Disp: , Rfl: atorvastatin (Lipitor) 20 mg tablet, Take 1 tablet (20 mg) by mouth at bedtime., Disp: 90 tablet, Rfl: 3 isosorbide mononitrate ER (Imdur) 60 mg 24 hr tablet, TAKE 1 TABLET IN THE MORNING, Disp: 90 tablet, Rfl: 3 Viberzi 100 mg tablet, Take 100 mg by mouth in the morning., Disp: , Rfl: NIFEdipine XL (Procardia XL) 30 mg 24 hr tablet, Take 1 tablet (30 mg) by mouth once daily as directed. Do not crush, chew, or split., Disp: 30 tablet, Rfl: 0 Last Recorded Vitals Visit Vitals BP 174/58 (BP Location: Left arm, Patient Position: Sitting) Pulse (!) 42 Ht 1.626 m (5' 4 ) Wt 57.2 kg (126 lb) SpO2 96% BMI 21.63 kg/m??? Smoking Status Former BSA 1.61 m??? Physical Examination: GENERAL: alert and oriented x3, well developed, in no acute distress. HEAD: atraumatic, normocephalic. EYES: DARCY, EOMI. NECK: trachea midline, no JVD present, no carotid bruits present. CARDIAC: Bradycardic, S1, S2 present. RRR. No murmur, rubs, or gallops. RESPIRATORY: CTAB, no increased effort of breathing, no rales, rhonchi, or wheezing. ABDOMEN: soft, nontender, nondistended. EXTREMITIES: no lower extremity edema, peripheral pulses are 2+ bilaterally. No rash/skin discoloration present. NEURO: strength/sensation equal and symmetric in bilateral upper and lower extremities. PSYCH: appropriate mood, affect, and judgement. Last Images: EKG 01/12/2024 showed sinus rhythm with second-degree AV block heart rate 40 bpm, right axis deviation, nonspecific intraventricular conduction delay Cardiac catheterization 04/27/1998: 30% proximal circumflex Subtotal obstruction distal half posterior descending 20% proximal RCA Normal overall left ventricular systolic function Labs: 01/12/2024 White blood count 6.8, hemoglobin 13, platelets 252 Sodium 141, potassium 4.4, BUN 11, creatinine 0.66, glucose 101, GFR above 60, calcium 9.5 Total bilirubin 0.7, AST 22, ALT 25, alk phos 81, total protein 7.3 TSH 3.817(normal 0.358-3.74), free T32.4, free T41.16 Assessment and Plan: 1. Symptomatic bradycardia, due to combination of second-degree A-V block and occasional a profound sinus bradycardia as described on the event monitor strips. -I will discontinue Toprol-XL altogether -I think the patient need pacemaker I actually discussed that while the patient was in the office with data manager Dr. Edmonds and we will arrange for her to have the pacemaker placed later today. That was discussed with the patient and her son including the details of the procedure as well as the benefits and risks. She is agreeable. 2. Second degree AV block with high grade block on couple occasion causing prolonged pauses up to 4 seconds - Case Request EP Lab: Implant PPM 3. Sinus bradycardia, she had couple episodes with profound sinus bradycardia with ventricular es (more content not included)... [facility] 01-12-2024 Note [facility] Cardiology Clinic Note Chief Complaint: Patient here c/o hypotension and bradycardia. She had an episode of chest pain w/ SOB the other day. She says she can see the pulsating in my eyes of my heartbeat . This happens intermittently she says. HR goes down around 35 a lot. Diastolic BP is the number that's usually low when she checks it at home. HPI: Terri Handy is a 83 y.o. female with a history of coronary artery disease, hypertension and dyslipidemia here to establish cardiovascular care Name is Benson She denies chest pain, her shortness of breath is stable. She has no orthopnea, paroxysmal external dyspnea, or lower extremity edema. She brought in blood pressure readings from home; they are all in the low 100s to 120s systolic. UPDATE 01/12/2024 She is concerned about low heart rates at home; her son is with her today. They both state that her heart rate sometimes drops into the 30s. She has mild lightheadedness but denies syncope or presyncope. She has had some intermittent chest discomfort that she describes as burning . No worsening shortness of breath. No orthopnea, no paroxysmal tunnel dyspnea, no lower extremity edema. Cardiology ROS: Review of Systems Cardiovascular: Positive for chest pain, dyspnea on exertion and palpitations. Respiratory: Positive for shortness of breath. Musculoskeletal: Positive for arthritis and joint pain. Neurological: Positive for light-headedness. All other systems reviewed and are negative. Past Medical History She has a past medical history of Coronary artery disease, Hyperlipidemia, and Hypertension. Surgical History She has a past surgical history that includes Cardiac catheterization and Total hip arthroplasty. Social History She reports that she quit smoking about 39 years ago. Her smoking use included cigarettes. She has never used smokeless tobacco. She reports current alcohol use. No history on file for drug use. Family History Family History Problem Relation Name Age of Onset Coronary artery disease Mother Heart attack Father Allergies Patient has no known allergies. Medications Current Outpatient Medications: aspirin 81 mg EC tablet, Take 81 mg by mouth in the morning., Disp: , Rfl: atorvastatin (Lipitor) 20 mg tablet, Take 1 tablet (20 mg) by mouth at bedtime., Disp: 90 tablet, Rfl: 3 isosorbide mononitrate ER (Imdur) 60 mg 24 hr tablet, TAKE 1 TABLET IN THE MORNING, Disp: 90 tablet, Rfl: 3 metoprolol succinate XL (Toprol-XL) 50 mg 24 hr tablet, Take 1 tablet (50 mg) by mouth in the morning., Disp: 90 tablet, Rfl: 3 Viberzi 100 mg tablet, Take 100 mg by mouth in the morning., Disp: , Rfl: Last Recorded Vitals BP 158/66 (BP Location: Left arm, Patient Position: Sitting) Pulse (!) 44 Ht 1.626 m (5' 4 ) Wt 57.2 kg (126 lb) SpO2 (!) 86% BMI 21.63 kg/m??? Physical Examination: GENERAL: alert and oriented x3, well developed, in no acute distress. HEAD: atraumatic, normocephalic. EYES: DARCY, EOMI. NECK: trachea midline, no JVD present, no carotid bruits present. CARDIAC: S1, S2 present. RRR. No murmur, rubs, or gallops. RESPIRATORY: CTAB, no increased effort of breathing, no rales, rhonchi, or wheezing. ABDOMEN: soft, nontender, nondistended. EXTREMITIES: no lower extremity edema, peripheral pulses are 2+ bilaterally. No rash/skin discoloration present. NEURO: strength/sensation equal and symmetric in bilateral upper and lower extremities. PSYCH: appropriate mood, affect, and judgement. Cardiac catheterization 04/27/1998: 30% proximal circumflex Subtotal obstruction distal half posterior descending 20% proximal RCA Normal overall left ventricular systolic function LABS 06/2022 HDL 72, LDL 68 12-lead EKG 08/12/2022 Sinus, 62 bpm, 1st degree AV block, RBBB Echocardiogram 02/2023: Conclusion: 1. Normal left ventricular systolic function. LVEF is 60 to 65%. 2. Normal right ventricular size and systolic function. 3. Mild tricuspid regurgitation. 4. Normal right-sided pressures. 5. No pericardial effusion 12 lead EKG 01/12/2024 Sinus, 1st degree AV block and 2:1 AV block Assessment: Coronary artery disease Chest pain Essential hypertension Palpitations - stable Dyslipidemia Element of whitecoat hypertension Exertional dyspnea Abnormal EKst degree AV block, RBBB and now 2:1 AV block Plan: Labs: CBC, CMP, TSH, free T4 and free T3 Will obtain a 30-day event monitor; given conduction abnormalities, she may need a permanent pacemaker We have asked her to cut down on her Toprol-XL to 25 mg daily We will obtain a Lexiscan stress test given her chest pain, and the duration of time since her last ischemic evaluation Optimal medical therapy for coronary artery disease should include aspirin, a statin in the form of Lipitor at low dose given excellent lipid profile and continued beta-blockade RTC after the event monitor or soone (more content not included)... [facility] 08-14-2023 Note [facility] Cardiology Clinic Note Chief Complaint: Patient here for 6 mo follow up CAD, hypertension, and hyperlipidemia. Had routine lab work 2 weeks ago. She did start low dose aspirin daily after last visit in March 2023. Denies chest pain and SOB. Does get intermittent episodes of palpitations, occurring with rest. Says she feels great, except for hip pain. HPI: Terri Handy is a 81 y.o. female With a history of coronary artery disease, hypertension and dyslipidemia here to establish cardiovascular care Name is Benson She denies chest pain, her shortness of breath is stable. She has no orthopnea, paroxysmal external dyspnea, or lower extremity edema. She brought in blood pressure readings from home; they are all in the low 100s to 120s systolic. UPDATE 08/14/2023 Cardiology ROS: Review of Systems Cardiovascular: Positive for palpitations. Musculoskeletal: Positive for arthritis and joint pain. All other systems reviewed and are negative. Past Medical History She has a past medical history of Coronary artery disease, Hyperlipidemia, and Hypertension. Surgical History She has a past surgical history that includes Cardiac catheterization and Total hip arthroplasty. Social History She reports that she quit smoking about 38 years ago. Her smoking use included cigarettes. She has never used smokeless tobacco. She reports current alcohol use. No history on file for drug use. Family History Family History Problem Relation Name Age of Onset Coronary artery disease Mother Heart attack Father Allergies Patient has no known allergies. Medications Current Outpatient Medications: aspirin 81 mg EC tablet, Take 81 mg by mouth in the morning., Disp: , Rfl: atorvastatin (Lipitor) 20 mg tablet, Take 1 tablet (20 mg) by mouth at bedtime., Disp: 90 tablet, Rfl: 3 isosorbide mononitrate ER (Imdur) 60 mg 24 hr tablet, Take 1 tablet (60 mg) by mouth in the morning., Disp: 90 tablet, Rfl: 3 metoprolol succinate XL (Toprol-XL) 50 mg 24 hr tablet, Take 1 tablet (50 mg) by mouth in the morning., Disp: 90 tablet, Rfl: 3 Viberzi 100 mg tablet, Take 100 mg by mouth in the morning., Disp: , Rfl: Last Recorded Vitals BP 164/68 (BP Location: Left arm, Patient Position: Sitting) Pulse 66 Ht 1.626 m (5' 4 ) Wt 56.7 kg (125 lb) SpO2 94% BMI 21.46 kg/m??? Physical Examination: GENERAL: alert and oriented x3, well developed, in no acute distress. HEAD: atraumatic, normocephalic. EYES: DARCY, EOMI. NECK: trachea midline, no JVD present, no carotid bruits present. CARDIAC: S1, S2 present. RRR. No murmur, rubs, or gallops. RESPIRATORY: CTAB, no increased effort of breathing, no rales, rhonchi, or wheezing. ABDOMEN: soft, nontender, nondistended. EXTREMITIES: no lower extremity edema, peripheral pulses are 2+ bilaterally. No rash/skin discoloration present. NEURO: strength/sensation equal and symmetric in bilateral upper and lower extremities. PSYCH: appropriate mood, affect, and judgement. Cardiac catheterization 04/27/1998: 30% proximal circumflex Subtotal obstruction distal half posterior descending 20% proximal RCA Normal overall left ventricular systolic function LABS 06/2022 HDL 72, LDL 68 12-lead EKG 08/12/2022 Sinus, 62 bpm, 1st degree AV block, RBBB Echocardiogram 02/2023: Conclusion: 1. Normal left ventricular systolic function. LVEF is 60 to 65%. 2. Normal right ventricular size and systolic function. 3. Mild tricuspid regurgitation. 4. Normal right-sided pressures. 5. No pericardial effusion Assessment: Coronary artery disease Essential hypertension Palpitations - stable Dyslipidemia Element of whitecoat hypertension Exertional dyspnea Abnormal EKst degree AV block, RBBB Plan: Optimal medical therapy for coronary artery disease should include aspirin, a statin in the form of Lipitor at low dose given excellent lipid profile and continued beta-blockade She is on Imdur and has been for a while; we will continue this for now I have asked her to continue to monitor her blood pressure and heart rate at home and let us know of any significant fluctuations Should her palpitations worsen or cause her significant symptoms, we can consider uptitrating her beta-aleah Return to clinic in 6 months or sooner should problems arise Eryn Irwin MD, MPH, FACC, [facility], [facility] Interventional Cardiology Pager Email: [email or web address] Evaluation note Diagnosis Irritable bowel syndrome with diarrhea Irritable bowel syndrome documented in this encounter [facility] Diagnosis Benign essential hypertension (CMS/HCC)- Primary Essential hypertension, benign Irritable bowel syndrome with diarrhea Irritable bowel syndrome Primary osteoarthritis of both hips CAD in [place] artery (CMS/HCC) Onychomycosis 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- Primary Second degree AV block Other second degree atrioventricular block Benign essential hypertension (CMS/HCC) Essential hypertension, benign Hospital discharge follow-up Other follow-up examination Benign essential hypertension (CMS/HCC)- Primary Essential hypertension, benign Irritable bowel syndrome with diarrhea Irritable bowel syndrome Primary osteoarthritis of both hips CAD in [place] artery (CMS/HCC) Dyslipidemia ([facility]/HCC) Other and unspecified hyperlipidemia Subclinical hypothyroidism ([facility]) Other specified acquired hypothyroidism Encounter for long-term current use of medication documented in this encounter [facility] Summary Purpose Family History No Family History Records FoundNo Family History Records FoundNo Family History Records Found Advance Directives No Advanced Directives Records FoundNo Advanced Directives Records FoundNo Advanced Directives Records Found Additional Source Comments INFORMATION SOURCE (unrecogn ized section and content) DATE CREATED AUTHOR 07/07/2022 [facility] DATE CREATED AUTHOR AUTHOR'S ORGANIZ ATION 04/20/2024 [facility] DATE CREATED AUTHOR AUTHOR'S ORGANIZ ATION 06/23/2024 [facility] EPIC Reason for Visit (unrecogniz ed section and content) Reason Onset Date Comments Med Refill 06/10/2024 Reason Comments Follow-up 6 m Care Teams (unrecognized sec tion and content) Company Doctor Relationship Specialty Start Date End Date José Manuel Grissom MD [address] [place] [address] PCP - General Family Medicine 12/23/23 Company Doctor Relationship Specialty Start Date End Date José Manuel Grissom MD [address] [place] [address] PCP - General Family Medicine 12/23/23 Company Doctor Relationship Specialty Start Date End Date José Manuel Grissom MD [address] [place] [address] PCP - General Family Medicine 12/23/23 FOR RECORDS PERTAINING TO PATIENTS WHO ARE OR HAVE BEEN ENROLLED IN A CHEMICAL DEPENDENCY/SUBSTANCEABUSE PROGRAM, SOME INFORMATION MAY BE OMITTED. This clinical summary was aggregated from multiple sources. Caution should be exercised in using it in the provision of clinical care. This summary normalizes information from multiple sources, and as a consequence, information in this document may materially change the coding, format and clinical context of patient data. In addition, data may be omitted in some cases. CLINICAL DECISIONS SHOULD BE BASED ON THE PRIMARY CLINICAL RECORDS. [employer] [facility]. provides no warranty or guarantee of the accuracy or completeness of information in this document.
--- NOTE | 2024-07-24 13:09 | CT_ITS ---
The [address] [address] Patient Name: LARRY LOJA MRN: [id number] date: 1940 Sex: F Assigned Patient Location: ER Current Patient Location: Accession/Order Number: [id number] Exam Date: 07/24/2024 13:20 Report Date: 07/24/2024 14:14 At the request of: ROD CASTRO Procedure: CT pelvis wo con CT pelvis wo con: 07/24/2024 1:20 PM EST HISTORY: Bilateral hip pain after a fall on steps this morning. COMPARISON: None. TECHNIQUE: Multiple contiguous axial CT images of the pelvis were obtained without contrast. Sagittal and coronal reformatted images were made. Dose reduction techniques were achieved by using automated exposure control and/or adjustment of mA and/or kV according to patient size and/or use of iterative reconstruction technique. FINDINGS: There are degenerative changes of the visualized lower lumbar spine. There is grade 1 anterolisthesis of L4 on L5 secondary to chronic bilateral pars defects of L4. There is severe discogenic disease at the L4-L5 and L5-S1 level. There is some degree of spinal canal stenosis and bilateral foraminal narrowing at the L4-L5 and L5-S1 level. There are moderate degenerative changes of the sacroiliac joints. There is an acute, nondisplaced fracture involving the anterior cortex of the left sacral ala. There is also an acute nondisplaced fracture involving the medial aspect of the left superior pubic ramus and an acute minimally displaced fracture of the left inferior pubic ramus. There is an acute nondisplaced fracture involving the medial aspect of the right superior pubic ramus adjacent to the pubic symphysis. This is associated with a large pelvic hematoma within the anterior right side of the pelvis anterior to the urinary bladder. This measures 4.2 x 6.7 cm in AP and transverse dimension respectively. There is also a moderate amount of hemorrhage within the right side of the pelvis. There is diverticulosis of the sigmoid colon without evidence of diverticulitis. No other fracture or dislocation is seen. There are severe degenerative changes of the left hip joint. There are severe degenerative changes of the pubic symphysis. The visualized portions of a right total hip prosthesis appear grossly intact. However, the distal extent of the femoral component is not included in the [id number]. CT/CT pelvis wo con IMPRESSION: 1. There is an acute nondisplaced fracture of the medial aspect of the right superior pubic ramus. This is associated with a large pelvic hematoma within the adjacent anterior aspect of the right side of the pelvis anterior to the urinary bladder. This also a moderate amount of hemorrhage within the right side of the pelvis. 2. Acute, nondisplaced fracture of the medial aspect of the left superior pubic ramus and acute minimally displaced fracture of the left inferior pubic ramus. There is also an acute nondisplaced fracture of the anterior cortex of the left sacral ala. These fractures are compatible with insufficiency fractures from underlying osteoporosis. 3. There are degenerative changes of the visualized lower lumbar spine with some degree of spinal canal stenosis and bilateral foraminal narrowing at the L4-L5 and L5-S1 levels. 4. Severe, end-stage osteoarthritis of the left hip joint. Electronically authenticated by: JAMIR DELGADILLO Date: 07/24/2024 14:14
--- NOTE | 2024-07-24 13:09 | CT_ITS ---
The [address] [address] Patient Name: LARRY LOJA MRN: [facility]:[id number] date: 1940 Sex: F Assigned Patient Location: ER Current Patient Location: Accession/Order Number: [id number] Exam Date: 07/24/2024 13:20 Report Date: 07/24/2024 14:01 At the request of: ROD CASTRO Procedure: CT cervical spine wo con EXAMINATION: CT cervical spine wo con HISTORY: fall , status post fallmorning. COMPARISON: None. TECHNIQUE: CT cervical spine without intravenous contrast. Dose reduction techniques were achieved by using: automated exposure control and/or adjustment of mA and /or kV according to patient size and/or use of iterative reconstruction technique. FINDINGS: Straightening of the cervical spine. Vertebral bodies are anatomically aligned. Vertebral body heights are preserved. There is no evidence for acute fracture. There is no evidence for acute subluxation. Multilevel degenerative disc disease and facet arthropathy. There are varying degrees of disc height loss, osteophytes, and facet arthropathy. prevertebral soft tissues normal in thickness. Severe spinal canal stenosis at C5-C6 secondary to disc osteophytes. Degenerative facet arthropathy and uncovertebral osteophytes result in a few levels of foraminal stenosis, most prominent at the left C3-C4, bilateral C4-C5, bilateral C5-C6 levels. No airspace infiltrates in the included lung apices. CT/CT cervical spine wo con IMPRESSION: Negative for acute fracture or dislocation in the cervical spine. Electronically authenticated by: ALEJO LAUGHLIN Date: 07/24/2024 14:01
[2024-07-24 14:35] LABS: Basophils Percent Auto 0.2 % (0.2-2.0); Eosinophils Percent Auto 0.2 % (0.9-7.0); Hematocrit 37.2 % (36.0-48.0); Hemoglobin 12.2 g/dL (12.0-16.0); Immature Granulocytes Abs Auto 0.05 10^3/uL (0.00-0.03); Immature Granulocytes Pct Auto 0.4 % (0.0-0.5); Lymphocytes Absolute Auto 1.3 10^3/uL (1.2-3.8); Lymphocytes Percent Auto 10.4 % (20.5-60.0); Mean Corpuscular HGB Conc 32.8 g/dL (29.9-35.2); Mean Corpuscular Hemoglobin 29.7 pg (26.7-34.0); Mean Corpuscular Volume 90.5 fL (81.0-99.0); Mean Platelet Volume 9.7 fL (9.5-13.5); Monocytes Absolute Auto 0.9 10^3/uL (0.3-0.8); Monocytes Percent Auto 6.7 % (1.7-12.0); Neutrophils Absolute Auto 10.5 10^3/uL (1.4-6.5); Neutrophils Percent Auto 82.1 % (43.0-75.0); Platelet Count 185 10^3/uL (150-450); Red Blood Count 4.11 10^6/uL (4.20-5.40); White Blood Count 12.7 10^3/uL (4.0-11.0)
--- NOTE | 2024-07-24 14:39 | ECG_ITS ---
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
[2024-07-24 14:50] LABS: Alanine Aminotransferase 23 U/L (14-59); Albumin Globulin Ratio 1.1; Albumin Level 3.4 g/dL (3.4-5.0); Alkaline Phosphatase 72 U/L (46-116); Aspartate Amino Transferase 22 U/L (15-37); BUN Creatinine Ratio 15.9; Bilirubin Total 0.8 mg/dL (0.2-1.0); Calcium 8.9 mg/dL (8.5-10.1); Carbon Dioxide 27.1 mmol/L (21.0-32.0); Chloride 103 mmol/L (98-107); Estimated GFR (African America >60 (>=60 mL/min/1.73m^2); Estimated GFR (Non-African Ame >60 (>=60 mL/min/1.73m^2); Glucose 117 mg/dL (74-106); Potassium 4.1 mmol/L (3.5-5.1); Sodium 140 mmol/L (136-145); Total Protein 6.4 g/dL (6.4-8.2)
[2024-07-24] MEDS: MORPHINE SULFATE 2 MG/ML SYRINGE IV (15:18)
--- NOTE | 2024-07-24 15:22 | ED_ITS ---
HPI HPI - General Adult General Chief complaint: Back Pain/Injury Stated complaint: LOWER BACK PAIN/LEG PAIN/FALL Time Seen by Provider: 07/24/24 12:58 Source: patient Mode of arrival: Wheelchair History of Present Illness HPI narrative: The patient is coming to the ER with a pelvic pain that started after she fell down, patient complaining of bilateral hip pain and she was complaining also of mild neck pain mostly in the right side. No numbness or tingling down her legs and there is no weakness but the patient complained of pain that she is not able to put weight on her hip bilaterally Related Data Home Medications ?Medication ?Instructions ?Recorded ?Confirmed aspirin 81 mg tablet,delayed 81 mg PO QPM 07/24/24 07/24/24 release (Adult Low Dose Aspirin) atorvastatin 20 mg tablet 20 mg PO DAILY 07/24/24 07/24/24 eluxadoline 100 mg tablet (Viberzi) 100 mg PO BID 07/24/24 07/24/24 isosorbide mononitrate 60 mg 60 mg PO DAILY 07/24/24 07/24/24 tablet,extended release 24 hr metoprolol succinate 25 mg 25 mg PO DAILY 07/24/24 07/24/24 tablet,extended release 24 hr Allergies Allergy/AdvReac Type Severity Reaction Status Date / Time acetaminophen (From Percocet) Allergy Severe Unknown Verified 07/24/24 12:52 oxycodone (From Percocet) Allergy Severe Unknown Verified 07/24/24 12:52 Opioid HPI Opioid Management Most Recent Opioid Data: No Data to Display Review of Systems ROS Status of ROS 10 or more systems reviewed and unremark able except as noted in history and below PFSH PFSH Medical History (Updated 07/24/24 @ 15:52 by Rupali Frederick MD) Cardiac pacemaker ?Z95.0 - Presence of cardiac pacemaker (ICD-10) Surgical History (Updated 07/24/24 @ 12:56 by Ashley Mattson) Hx of appendectomy ?Z90.49 - Acquired absence of other specified parts of digestive tract (ICD- 10) Hx of tonsillectomy ?Z90.89 - Acquired absence of other organs (ICD-10) History of back surgery ?Z98.890 - Other specified postprocedural states (ICD-10) History of hip replacement ?Z96.649 - Presence of unspecified artificial hip joint (ICD-10) Social History Little interest or pleasure in doing things: not at all Feeling down, depressed, or hopeless: not at all Exam Narrative Exam Narrative: Nurses notes and vital signs reviewed and patient is not hypoxic. General: Well-appearing and in no apparent distress. Skin: Warm, dry, no pallor noted. No rash. Head: Normocephalic, atraumatic. Neck: Supple, non-tender. Eye: Pupils are equal, round and EOMI. No scleral icterus. Ears, Nose, Mouth, and Throat: TM are clear, no nasal mucosal hypertrophy. Oral mucosa is moist, no posterior oropharynx erythema, uvula is mid-line Cardiovascular: Regular Rate and Rhythm without murmur, gallop or rub. Respiratory: No accessory muscle use or respiratory distress. Lungs are clear to auscultation, no wheezing, rales or rhonchi Chest Wall: no tenderness Back: No midline thoracic or lumbar vertebral tenderness. No CVA tenderness Musculoskeletal: The patient have bilateral hip pain with limited movement in the left hip due to pain GI: Abdomen is soft, non-distended. Normal bowel sounds. No masses appreciated. No tenderness to palpation. No rebound, guarding, or rigidity noted. Neurological: A&O x4. No cranial nerve dysfunction observed. Psychiatric: Cooperative and interactive. Normal mood and affect. Constitutional Vital Signs, click to edit/add: Last Vital Signs Temp 97.9 F 07/24/24 12:45 Pulse 80 07/24/24 14:35 Resp 22 H 07/24/24 14:35 BP 156/77 H 07/24/24 14:38 Course Vital Signs Vital signs: Vital Signs Temperature 97.9 F 07/24/24 12:45 Pulse Rate 80 07/24/24 12:45 Respiratory Rate 18 07/24/24 12:45 Blood Pressure 165/93 H 07/24/24 12:45 Temperature 97.9 F 07/24/24 12:45 Pulse Rate 80 07/24/24 14:35 Respiratory Rate 22 H 07/24/24 14:35 Blood Pressure 156/77 H 07/24/24 14:38 Medical Decision Making MDM Narrative Medical decision making narrative: The patient presented to us with a fall she does not take any anticoagulant The patient EKG in the ER showing sinus rhythm with a heart rate of [address] elevation or depression Patient had no chest pain or dizziness CT of the cervical spine showed no acute pathology CT of the pelvis shows multiple fractures are mostly nondisplaced in the right and left pubic rami in addition to other pathology but the patient also have pelvic hematoma and possible bleeding and that there is a concern that the patient will need to be transferred to a trauma facility The patient case was first discussed with general surgery in [facility] but they recommended the patient to be transferred to a facility where they have interventional radiology The patient right now is stable with treated for pain with morphine [facility] Labs: Lab Results 07/24/24 Range/Units 14:30 WBC 12.7 H (4.0-11.0) 10^3/uL RBC 4.11 L (4.20-5.40) 10^6/uL Hgb 12.2 (12.0-16.0) g/dL Hct 37.2 (36.0-48.0) % MCV 90.5 (81.0-99.0) fL MCH 29.7 (26.7-34.0) pg MCHC 32.8 (29.9-35.2) g/dL RDW 13.0 (11.0-15.0) % Plt Count 185 (150-450) 10^3/uL MPV 9.7 (9.5-13.5) fL Neut % (Auto) 82.1 H (43.0-75.0) % Lymph % (Auto) 10.4 L (20.5-60.0) % Oliver % (Auto) 6.7 (1.7-12.0) % Eos % (Auto) 0.2 L (0.9-7.0) % Baso % (Auto) 0.2 (0.2-2.0) % Neut # (Auto) 10.5 H (1.4-6.5) 10^3/uL Lymph # (Auto) 1.3 (1.2-3.8) 10^3/uL Oliver # (Auto) 0.9 H (0.3-0.8) 10^3/uL Eos # (Auto) 0.0 (0.0-0.7) 10^3/uL Baso # (Auto) 0.0 (0.0-0.1) 10^3/uL Abs Immat Gran (auto) 0.05 H (0.00-0.03) 10^3/uL Imm/Tot Granulo (auto) 0.4 (0.0-0.5) % Sodium 140 (136-145) mmol/L Potassium 4.1 (3.5-5.1) mmol/L Chloride 103 (98-107) mmol/L Carbon Dioxide 27.1 (21.0-32.0) mmol/L Anion Gap 14.0 BUN 11.0 (7.0-18.0) mg/dL Creatinine 0.69 (0.55-1.02) mg/dL Est GFR ( Amer) >60 (>=60 mL/min/1.73m^2) Est GFR (Non-Af Amer) >60 (>=60 mL/min/1.73m^2) BUN/Creatinine Ratio 15.9 Glucose 117 H (74-106) mg/dL Calcium 8.9 (8.5-10.1) mg/dL Total Bilirubin 0.8 (0.2-1.0) mg/dL AST 22 (15-37) U/L ALT 23 (14-59) U/L Alkaline Phosphatase 72 (46-116) U/L Total Protein 6.4 (6.4-8.2) g/dL Albumin 3.4 (3.4-5.0) g/dL Globulin 3.0 g/dL Albumin/Globulin Ratio 1.1 Blood Type A Positive Antibody Screen Negative Discharge Plan Discharge Chief Complaint: Back Pain/Injury Clinical Impression: Multiple fractures of pelvis with disruption of pelvic ring, Pelvic haematoma Patient Disposition: General Acute Hospital Time of Disposition Decision: 15:51 Discharge location: [facility] ED Condition: Good
--- NOTE | 2024-07-24 17:16 | ECG_ITS ---
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
[2024-07-24] MEDS: 0.9 % SODIUM CHLORIDE 1,000 ML 1000 ML IV (17:20)
--- NOTE | 2024-07-24 17:21 | PC.NURSE ---
At 1711 patient calls and complains of dizziness . Skin cool and clammy B/P 59/33, head lowered and Dr. Frederick notified. NS bolus hung as ordered. Blood pressure up and patient is alert and awake.
--- NOTE | 2024-07-24 17:50 | PC.NURSE ---
Pelvic binder applied by Dr. Frederick. Patient awake and alert.
--- NOTE | 2024-07-24 18:10 | PC.NURSE ---
Matteo1 [facility] bro at this time.
--- NOTE | 2024-07-24 18:11 | PC.NURSE ---
Report called to ROSENDO Barnes at the [facility] ER.
== END 2024-07-24 18:16 | disposition short-term general hospital (02) ==
PROVIDERS: Emergency Provider Emergency Medicine; PCP Family Medicine
DX: S32.810A Multiple fractures of pelvis with stable disruption of pelvic ring, initial encounter for closed fracture (principal); S32.10XA Unspecified fracture of sacrum, initial encounter for closed fracture; W10.8XXA Fall (on) (from) other stairs and steps, initial encounter; M54.2 Cervicalgia; S30.0XXA Contusion of lower back and pelvis, initial encounter; Z95.0 Presence of cardiac pacemaker; M16.12 Unilateral primary osteoarthritis, left hip; M48.07 Spinal stenosis, lumbosacral region; R42 Dizziness and giddiness
CPT/HCPCS: 36415; 51702; 72125; 72192; 80053; 85025; 86850; 86900; 86901; 86923; 93005; 96361; 96374; 99285; J2270

== ENCOUNTER 2024-11-15 08:07 | Outpatient (OUT) | payer MEDICARE, SELFPAY ==
[2024-11-15 08:26] LABS: Basophils Percent Auto 0.5 % (0.2-2.0); Eosinophils Absolute Auto 0.1 10^3/uL (0.0-0.7); Eosinophils Percent Auto 1.6 % (0.9-7.0); Hematocrit 39.5 % (36.0-48.0); Hemoglobin 12.7 g/dL (12.0-16.0); Immature Granulocytes Abs Auto 0.01 10^3/uL (0.00-0.03); Immature Granulocytes Pct Auto 0.2 % (0.0-0.5); Lymphocytes Absolute Auto 2.5 10^3/uL (1.2-3.8); Lymphocytes Percent Auto 40.8 % (20.5-60.0); Mean Corpuscular HGB Conc 32.2 g/dL (29.9-35.2); Mean Corpuscular Volume 90.2 fL (81.0-99.0); Mean Platelet Volume 9.7 fL (9.5-13.5); Monocytes Absolute Auto 0.5 10^3/uL (0.3-0.8); Monocytes Percent Auto 8.3 % (1.7-12.0); Neutrophils Percent Auto 48.6 % (43.0-75.0); Platelet Count 206 10^3/uL (150-450); Red Blood Count 4.38 10^6/uL (4.20-5.40); Red Cell Distribution Width 13.5 % (11.0-15.0); White Blood Count 6.2 10^3/uL (4.0-11.0)
--- OUTSIDE RECORDS SUMMARY | 2024-11-15 08:27 | XMS_ITS | CCD ---
Author Organization [facility] Care Team Providers Care Black Pickler Name Role Phone DR JOSÉ MANUEL GRISSOM Primary Care Unavailable GENE, DR DU Attending Unavailable EGNE, DR DU Consulting Unavailable GENE, DR DU Admitting Unavailable José Manuel Grissom MD Primary Care Provider [phone] ANDRE PEREYRA Attending Unavailable ANDRE PEREYRA Admitting Unavailable DEEJAY TEJEDA Attending Unavailable SOHAIL DOVER Admitting Unavailable SILVANO CLIFTON JR. Consulting UnavailJR Deluca Consulting Unavailable NELLY DAI Referring Unavailable SOHAIL DOVER Referring Unavailable Unavailable Primary Care Provider UnavailDARIO Rose Attending Unavailable BEVERLY, DARIO Meade Referring Unavailable JACIEL, JOSÉ MANUEL Attending Unavailable SHAIKH CASTILLO Attending Unavailable JACIEL, JOSÉ MANUEL Attending Unavailable JACIEL, JOSÉ MANUEL Attending Unavailable DARIO PAUL Attending Unavailable JOSÉ MANUEL GRISSOM Referring Unavailable PAUL, DARIO Meade Referring Unavailable BEVERLY, DARIO Meade Attending Unavailable DARIO PAUL Referring Unavailable ELKATIE HENRIQUEZ Attending Unavailable OLI EDMONDS Referring Unavailable OSVALDO, OLI Attending Unavailable OLI EDMONDS Admitting Unavailable ELTAHAWY, KATIE Attending Unavailable OSVALDOOLI Wilson Referring Unavailable OSVALDO, OLI Referring Unavailable OSVALDO, OLI Referring Unavailable ALGHOTHROHAN CHARLES Attending Unavailable DEENA MORALES Attending Unavailable ELTAHAWY, KATIE Attending Unavailable Medications Current Medications Medication Drug Class(es) Dates Sig (Normalized) Sig (Original) aspirin 81 mg delayed release oral tablet (20 sources) Platelet Aggregation Inhibitor, Nonsteroidal Anti-inflammatory Drug Start: 07-29-2024 End: 08-28-2024 take 1 tablet by mouth in the morning, then take 1 tablet by mouth at bedtime aspirin 81 mg Take 1 tablet (81 mg total) by mouth in the morning and 1 tablet (81 mg total) before bedtime. Do all this for 30 days. 60 tablet 07/29/2024 08/28/2024 Active atorvastatin 20 mg oral tablet (20 sources) HMG-CoA Reductase Inhibitor Start: 06-02-2023 take 1 tablet by mouth at bedtime atorvastatin (Lipitor) 20 MG tablet Take 20 mg by mouth at bedtime 06/02/2023 Active eluxadoline 100 mg oral tablet (20 sources) mu-Opioid Receptor Agonist Start: 06-07-2024 End: 09-03-2024 take 1 tablet by mouth in the morning Eluxadoline (Viberzi) 100 MG tablet Indications: Irritable bowel syndrome with diarrhea Take 100 mg by mouth in the morning and 100 mg before bedtime. 180 tablet 1 08/18/2024 Active Start: 06-02-2024 take 1 tablet by erickson th in the morning Eluxadoline (Viberzi) 100 MG tablet Indications: Irritable bowel syndrome with diarrhea Take 100 mg by mouth in the morning and 100 mg before bedtime. 180 tablet 2 06/02/2024 Active Start: 11-18-2023 End: 06-02-2024 take 1 tablet by mouth in the morning Eluxadoline (Viberzi) 100 MG tablet Indications: Irritable bowel syndrome with diarrhea Take 100 mg by mouth in the morning and 100 mg before bedtime. 180 tablet 1 11/18/2023 06/02/2024 Discontinued (Reorder) gabapentin 300 mg oral capsule (14 sources) Anti-epileptic Agent Start: 07-29-2024 End: 08-28-2024 take 1 capsule by mouth every eight hours gabapentin (NEURONTIN) 300 mg capsule Indications: Closed displaced fracture of pelvis, unspecified part of pelvis, initial encounter ([facility]) Take 1 capsule (300 mg total) by mouth every 8 (eight) hours for 30 days. 90 capsule 07/29/2024 08/28/2024 Active 24 hr isosorbide mononitrate 60 mg extended release oral tablet (20 sources) Nitrate Vasodilator Start: 09-29-2023 take 1 tablet by mouth in the morning, then take 1 tablet by mouth every twenty-four hours isosorbide mononitrate ER (Imdur) 60 MG 24 hr tablet Take 60 mg by mouth in the morning. 09/29/2023 Active 24 hr metoprolol succinate 50 mg extended release oral tablet (20 sources) beta-Adrenergic Aleah Start: 06-02-2024 take 1 tablet by mouth once daily metoprolol succinate XL (Toprol-XL) 50 MG 24 hr tablet Take 50 mg by mouth Daily 06/02/2024 Active Start: 03-08-2024 take 1 tablet by erickson th every twenty-four hours in the morning metoprolol succinate XL (TOPROL XL) 50 mg 24 hr tablet Take 1 tablet (50 mg total) by mouth in the morning. 03/08/2024 Active Start: 01-12-2024 End: 06-21-2024 take 1 tablet by mouth once daily metoprolol succinate XL (Toprol-XL) 25 MG 24 hr tablet Take 25 mg by mouth Daily 01/12/2024 06/21/2024 Discontinued Multiple Vitamin (multivitamin) tablet (20 sources) take 1 tablet by erickson th once daily Multiple Vitamin (multivitamin) tablet Take 1 tablet by mouth Daily Active Problems Active Problems Problem Classification Problem Date Documented Da te Episodic/Chronic Aortic; peripheral; and visceral artery aneurysms (2 sources) Aneurysm of iliac artery; Translations: [Aneurysm of iliac artery] 07-26-2024 Chronic Cardiac dysrhythmias (20 sources) Sinus bradycardia; Translations: [Bradycardia, unspecified] Onset: 3 01-20-2024 Episodic Conduction disorders (20 sources) Second degree atrioventricular block; Translations: [Atrioventricular block, second degree] Onset: 4 01-20-2024 Chronic Coronary atherosclerosis and other heart disease (20 sources) Atherosclerotic heart disease of [place] coronary artery without angina pectoris; Translations: [Coronary arteriosclerosis] Onset: 2 Chronic Disorders of lipid metabolism (20 sources) Hyperlipidemia, unspecified; Translations: [Dyslipidemia] Onset: 2 12-23-2023 Chronic E Codes: Fall (1 source) Fall Onset: 4 Essential hypertension (20 sources) Benign essential hypertension; Translations: [Essential (primary) hypertension] Onset: 3 12-23-2023 Chronic Hypertension with complications and secondary hypertension (20 sources) Benign hypertensive heart disease without congestive heart failure; Translations: [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 heart failure] Onset: 4 01-20-2024 Chronic Osteoarthritis (20 sources) Primary coxarthrosis, bilateral; Translations: [Bilateral primary osteoarthritis of hip] Onset: 4 12-23-2023 Chronic Other fractures (1 source) Fracture of unspecified parts of lumbosacral spine and pelvis, initial encounter for closed fracture; Translations: [Fracture of unspecified parts of lumbosacral spine and pelvis, initial encounter for closed fracture] Onset: 4 Episodic Other fractures (10 sources) Closed fracture pubis; Translations: [Unspecified fracture of unspecified pubis, subsequent encounter for fracture with routine healing] 08-18-2024 Episodic Other gastrointestinal disorders (20 sources) Irritable bowel syndrome with diarrhea; Translations: [Irritable bowel syndrome with diarrhea] Onset: 4 06-10-2024 Chronic Other non-traumatic joint disorders (6 sources) Hip pain; Translations: [Pain in right hip] 08-23-2024 Episodic Residual codes; unclassified (1 source) Pain, unspecified; Translations: [Pain, unspecified] Onset: 4 Episodic Thyroid disorders (18 sources) Subclinical hypothyroidism; Translations: [Other specified hypothyroidism] Onset: 4 06-21-2024 Chronic Unclassified (1 source) Trauma Onset: 4 Unclassified (1 source) EMS//Larry Handy, 83 y/o F, multiple pelvic fractures s/p fall. Dr. Dover accepted as trauma consult. [facility] from [place]. Questions, call Access at [phone] Onset: 4 Past or Other Problems Problem Classification Problem Date Documented Da te Episodic/Chronic Mood disorders (3 sources) Mood disorders Onset: 07-25-2024 07-25-2024 Mycoses (20 sources) Onychomycosis; Translations: [Tinea unguium] Onset: 12-23-2023 Resolved: 06-21-2024 12-23-2023 Episodic Nonspecific chest pain (2 sources) Chest pain, unspecified; Translations: [Chest pain, unspecified] Onset: 04-19-2024 Episodic Other aftercare (20 sources) Post-discharge follow-up; Translations: [Encounter for follow-up examination after completed treatment for conditions other than malignant neoplasm] Onset: 01-20-2024 Resolved: 06-21-2024 01-20-2024 Episodic Other aftercare (18 sources) Long-term current use of drug therapy; Translations: [Other detention (current) drug therapy] Onset: 06-21-2024 06-21-2024 Episodic Other fractures (17 sources) Closed fracture of pelvis; Translations: [Fracture of unspecified parts of lumbosacral spine and pelvis, initial encounter for closed fracture] Onset: 07-24-2024 08-18-2024 Episodic Residual codes; unclassified (2 sources) Other specified personal risk factors, not elsewhere classified; Translations: [Other specified personal risk factors, not elsewhere classified] Onset: 01-15-2024 Episodic Results Test Name Value Interpretation Reference Range Facility Office Visiton 11-09-2024 Follow-up visit [id number] Larry Handy 1940 F Date Provider Department Center 11/09/2024 Natacha-KATIE IRWIN [facility] Family History Problem Relation Age of Onset Coronary artery disease Mother Heart attack Father Family Status - Relation Status Age at Mother Father Level of Service:88331 [place] OFFICE/OUTPATIENT ESTABLISHED LOW MDM 20 MIN Normal [facility] XR Pelvis 1 or 2 [facility] Result: 10/26/2024: AP pelvis demonstrates healing bilateral pubic rami fractures with increased callus formation when compared to previous xray on 09/20/2024 in acceptable alignment with no signs of displacement. Stable right ALMA and severe left osteoarthritis of the left hip noted. No other acute findings noted. Impression: Healing bilateral pubic rami fracture. Stable RT ALMA. Severe LT hip osteoarthritis. Dario PEDERSEN [facility] XR Pelvis 1 or 2 [facility] Study observation (narrative) [facility] XR Pelvis 1 or 2 [facility] Result: 09/20/2024: AP pelvis demonstrates healing bilateral pubic rami fractures in acceptable alignment with no signs of displacement. Stable right ALMA and severe left osteoarthritis of the left hip noted. No other acute findings noted. Impression: Healing bilateral pubic rami fracture. Stable RT ALMA. Severe LT hip osteoarthritis. Dario Paul APRN-EXPLOSIVE TECHNICIAN [facility] Radiology Study observation (narrative) [facility] XR Pelvis 1 or 2 [facility] Result: 08/23/2024: AP pelvis demonstrates healing bilateral pubic rami fractures in acceptable alignment with no signs of displacement. Stable right ALMA and severe left osteoarthritis of the left hip noted. No other acute findings noted. Impression: healing bilateral pubic rami fracture with stable RT ALMA and severe LT hip osteoarthritis. Dario Paul CHAPLAIN RESIDENT-EXPLOSIVE TECHNICIAN [facility] Radiology Study observation (narrative) [facility] BASIC METABOLIC PANLon 07-29 Anion gap [Moles/Vol] 5 mmol/L Normal 5-15 [facility] Comment on above: Performed By: #### C BCA, 58642-8, PINR, 41738-4, 1798-8, CMP, 3040-3, 5643-2 #### [facility] ([id number]) [address], [address] [place] [address] Calcium [Mass/Vol] 8.7 mg/dL Normal 8.5-10.[address] [facility] Comment on above: Performed By: #### C BCA, 27527-7, PINR, 67787-6, 1798-8, CMP, 3040-3, 5643-2 #### [facility] ([id number]) [address], [address] [place] [address] Chloride [Moles/Vol] 100 mmol/L Normal 98-109 [facility] Comment on above: Performed By: #### C BCA, 57742-3, PINR, 79955-7, 1798-8, CMP, 3040-3, 5643-2 #### [facility] ([id number]) [address], [address] [place] [address] CO2 [Moles/Vol] 32 mmol/L Normal 22-32 [facility] Comment on above: Performed By: #### C BCA, 04328-1, PINR, 80598-3, 1798-8, CMP, 3040-3, 5643-2 #### [facility] ([id number]) [address], [address] [place] [address] Creatinine [Mass/Vol] 0.50 mg/dL Normal 0.40-1.00 [facility] Comment on above: Result Comment: METH OD TRACEABLE TO IDMS STANDARD Performed By: #### C BCA, 45923-9, PINR, 53588-7, 1798-8, CMP, 3040-3, 5643-2 #### [facility] ([id number]) [address], [address] [place] [address] eGFR (CKD-EPI) NON-RACE DEPENDENT >90 Normal >59 [facility] Comment on above: Result Comment: Reported eGFR is based on the CKD-EPI 2020 equation that does not use a race coefficient. Performed By: #### C BCA, 91915-4, PINR, 12198-3, 1798-8, CMP, 3040-3, 5643-2 #### [facility] ([id number]) [address], [address] [place] [address] Glucose [Mass/Vol] 101 mg/dL High 65-[address] [facility] Comment on above: Performed By: #### C BCA, 01644-2, PINR, 05142-9, 1798-8, CMP, 3040-3, 5643-2 #### [facility] ([id number]) [address] [address] [place] [address] Potassium [Moles/Vol] 4.0 mmol/L Normal 3.5-5.0 [facility] Comment on above: Performed By: #### C BCA, 33924-0, PINR, 11035-1, 1798-8, CMP, 3040-3, 5643-2 #### [facility] ([id number]) [address], [address] [place] [address] Sodium [Moles/Vol] 137 mmol/L Normal 134-[address] [facility] Comment on above: Performed By: #### C BCA, 48406-1, PINR, 81794-4, 1798-8, CMP, 3040-3, 5643-2 #### [facility] ([id number]) [address], [address] [place] [address] Urea nitrogen [Mass/Vol] 12 mg/dL Normal 5-27 [facility] Comment on above: Performed By: #### C BCA, 53252-6, PINR, 78914-3, 1798-8, CMP, 3040-3, 5643-2 #### [facility] ([id number]) [address], [address] [place] [address] CBC AND AUTO DIFFon 07-29- 24 ABSOLUTE BASOPHIL 0.0 X10E9/L Normal 0.0-0.[address] [facility] Comment on above: Performed By: #### C AGUILA, BMP ####[facility] ([id number])[address] [address] [place] [address] ABSOLUTE NEUTROPHIL 3.1 X10E9/L Normal 1.5-6.6 [facility] Comment on above: Performed By: #### Jori SHEEHAN, BMP ####[facility] ([id number])[address] [address] Basophils/100 WBC (Bld) 0.3 % Normal [facility] Comment on above: Performed By: #### C BCA, BMP ####[facility] ([id number])[address] [address] Eosinophils (Bld) [#/Vol] 0.2 10*3/uL Normal 0.0-0.4 [facility] Comment on above: Performed By: #### C BCA, BMP ####[facility] ([id number])[address] [address] Eosinophils/100 WBC (Bld) 2.8 % Normal [facility] Comment on above: Performed By: #### C BCA, BMP ####[facility] ([id number])[address] [address] Erythrocyte distribution width (RBC) [Ratio] 13.3 % Normal 11.5-15.0 [facility] Comment on above: Performed By: #### C AGUILA, BMP ####[facility] ([id number])[address] [place] [address] Hematocrit (Bld) [Volume fraction] 27.7 % Low 35-47 [facility] Comment on above: Performed By: #### C AGUILA, BMP ####[facility] ([id number])[address] [place] [address] Hemoglobin (Bld) [Mass/Vol] 9.4 g/dL Low 11.7-15.5 [facility] Comment on above: Performed By: #### C AGUILA, BMP ####[facility] ([id number])[address] [address] Lymphocytes (Bld) [#/Vol] 1.5 10*3/uL Normal 1.0-3.5 [facility] Comment on above: Performed By: #### C AGUILA, BMP ####[facility] ([id number])[address], [address] [address] Lymphocytes/100 WBC (Bld) 27.2 % Normal [facility] Comment on above: Performed By: #### C AGUILA, BMP ####[facility] ([id number])[address] [place] [address] MCH (RBC) [Entitic mass] 30.3 pg Normal 27-34 [facility] Comment on above: Performed By: #### C AGUILA, BMP ####[facility] ([id number])[address] [place] [address] MCHC (RBC) [Mass/Vol] 34.0 g/dL Normal 32-36 [facility] Comment on above: Performed By: #### C BCA, BMP ####[facility] ([id number])[address], [place] [address] MCV (RBC) [Entitic vol] 89 fL Normal 80-100 [facility] Comment on above: Performed By: #### C BCA, BMP ####[facility] ([id number])[address] [place] [address] Monocytes (Bld) [#/Vol] 0.7 10*3/uL Normal 0-0.9 [facility] Comment on above: Performed By: #### C AGUILA, BMP ####[facility] ([id number])[address] [place] [address] Monocytes/100 WBC (Bld) 13.1 % Normal [facility] Comment on above: Performed By: #### C BCA, BMP ####[facility] ([id number])[address], [place] [address] Neutrophils/100 WBC (Bld) 56.6 % Normal [facility] Comment on above: Performed By: #### C BCA, BMP ####[facility] ([id number])[address], [place] [address] Platelet mean volume (Bld) [Entitic vol] 8.2 fL Normal 7-12 [facility] Comment on above: Performed By: #### C BCA, BMP ####[facility] ([id number])[address], [place] [address] Platelets (Bld) [#/Vol] 176 10*3/uL Normal 150-450 [facility] Comment on above: Performed By: #### C BCA, BMP ####[facility] ([id number])[address], [place] [address] RBC COUNT 3.11 X10E12/L Low 3.80-5.20 [facility] Comment on above: Performed By: #### C BCA, BMP ####[facility] ([id number])[address] [place] [address] WBC (Bld) [#/Vol] 5.5 10*3/uL Normal 4.0-11.[address] [facility] Comment on above: Performed By: #### C BCA, BMP ####[facility] ([id number])[address], [place] [address] BASIC METABOLIC PANLon 07-28 Anion gap [Moles/Vol] 6 mmol/L Normal 5-15 [facility] Comment on above: Performed By: #### C AGUILA, BMP ####[facility] ([id number])[address], [place] [address] Calcium [Mass/Vol] 8.5 mg/dL Normal 8.5-10.[address] [facility] Comment on above: Performed By: #### C AGUILA, BMP ####[facility] ([id number])[address], [place] [address] Chloride [Moles/Vol] 101 mmol/L Normal 98-109 [facility] Comment on above: Performed By: #### C BCA, BMP ####[facility] ([id number])[address], [place] [address] CO2 [Moles/Vol] 33 mmol/L High 22-32 [facility] Comment on above: Performed By: #### C BCA, BMP ####[facility] ([id number])[address], [place] [address] Creatinine [Mass/Vol] 0.45 mg/dL Normal 0.40-1.00 [facility] Comment on above: Result Comment: METH OD TRACEABLE TO IDMS STANDARD Performed By: #### C BCA, BMP ####[facility] ([id number])[address] [address] [place] [address] eGFR (CKD-EPI) NON-RACE DEPENDENT >90 Normal >59 [facility] Comment on above: Result Comment: Reported eGFR is based on the CKD-EPI 2020 equation that does not use a race coefficient. Performed By: #### C BCA, BMP ####[facility] ([id number])[address] [place] [address] Glucose [Mass/Vol] 101 mg/dL High 65-[address] [facility] Comment on above: Performed By: #### C BCA, BMP ####[facility] ([id number])[address] [address] [place] [address] Potassium [Moles/Vol] 4.1 mmol/L Normal 3.5-5.0 [facility] Comment on above: Performed By: #### C BCA, BMP ####[facility] ([id number])[address] [address] [place] [address] Sodium [Moles/Vol] 140 mmol/L Normal 134-[address] [facility] Comment on above: Performed By: #### C BCA, BMP ####[facility] ([id number])[address] [address] Urea nitrogen [Mass/Vol] 13 mg/dL Normal 5-27 [facility] Comment on above: Performed By: #### C BCA, BMP ####[facility] ([id number])[address] [address] CBC AND AUTO DIFFon 11-20-20 24 ABSOLUTE BASOPHIL 0.0 X10E9/L Normal 0.0-0.[address] [facility] Comment on above: Performed By: #### C BCA, BMP ####[facility] ([id number])[address], [place] [address] ABSOLUTE NEUTROPHIL 2.6 X10E9/L Normal 1.5-6.6 [facility] Comment on above: Performed By: #### C AGUILA, BMP ####[facility] ([id number])[address], [place] [address] Basophils/100 WBC (Bld) 0.3 % Normal [facility] Comment on above: Performed By: #### C AGUILA, BMP ####[facility] ([id number])[address] [place] [address] Eosinophils (Bld) [#/Vol] 0.1 10*3/uL Normal 0.0-0.4 [facility] Comment on above: Performed By: #### C AGUILA, BMP ####[facility] ([id number])[address] [place] [address] Eosinophils/100 WBC (Bld) 2.5 % Normal [facility] Comment on above: Performed By: #### C AGUILA, BMP ####[facility] ([id number])[address], [place] [address] Erythrocyte distribution width (RBC) [Ratio] 13.7 % Normal 11.5-15.0 [facility] Comment on above: Performed By: #### C AGUILA, BMP ####[facility] ([id number])[address] [place] [address] Hematocrit (Bld) [Volume fraction] 27.2 % Low 35-47 [facility] Comment on above: Performed By: #### C AGUILA, BMP ####[facility] ([id number])[address], [place] [address] Hemoglobin (Bld) [Mass/Vol] 9.3 g/dL Low 11.7-15.5 [facility] Comment on above: Performed By: #### C BCA, BMP ####[facility] ([id number])[address] [address] Lymphocytes (Bld) [#/Vol] 1.5 10*3/uL Normal 1.0-3.5 [facility] Comment on above: Performed By: #### C BCA, BMP ####[facility] ([id number])[address] [address] Lymphocytes/100 WBC (Bld) 30.6 % Normal [facility] Comment on above: Performed By: #### C AGUILA, BMP ####[facility] ([id number])[address] [address] [place] [address], [place] [address] MCH (RBC) [Entitic mass] 30.4 pg Normal 27-34 [facility] Comment on above: Performed By: #### C AGUILA, BMP ####[facility] ([id number])[address] [place] [address] MCHC (RBC) [Mass/Vol] 34.2 g/dL Normal 32-36 [facility] Comment on above: Performed By: #### C BCA, BMP ####[facility] ([id number])[address] [address] [place] [address], [place] [address] MCV (RBC) [Entitic vol] 89 fL Normal 80-100 [facility] Comment on above: Performed By: #### C BCA, BMP ####[facility] ([id number])[address] [address], [place] [address] Monocytes (Bld) [#/Vol] 0.7 10*3/uL Normal 0-0.9 [facility] Comment on above: Performed By: #### C BCA, BMP ####[facility] ([id number])[address] [place] [address] Monocytes/100 WBC (Bld) 13.2 % Normal [facility] Comment on above: Performed By: #### C AGUILA, BMP ####[facility] ([id number])[address] [place] [address] Neutrophils/100 WBC (Bld) 53.4 % Normal [facility] Comment on above: Performed By: #### C AGUILA, BMP ####[facility] ([id number])[address] [place] [address] Platelet mean volume (Bld) [Entitic vol] 8.3 fL Normal 7-12 [facility] Comment on above: Performed By: #### C AGUILA, BMP ####[facility] ([id number])[address], [address] [place] [address] Platelets (Bld) [#/Vol] 147 10*3/uL Low 150-450 [facility] Comment on above: Performed By: #### C AGUILA, BMP ####[facility] ([id number])[address], [address] [address] RBC COUNT 3.06 X10E12/L Low 3.80-5.20 [facility] Comment on above: Performed By: #### C AGUILA, BMP ####[facility] ([id number])[address], [address] [place] [address] WBC (Bld) [#/Vol] 4.9 10*3/uL Normal 4.0-11.[address] [facility] Comment on above: Performed By: #### C AGUILA, BMP ####[facility] ([id number])[address] [address] [place] [address] BASIC METABOLIC PANLon 07-27 Anion gap [Moles/Vol] 3 mmol/L Low 5-15 [facility] Comment on above: Performed By: #### C BCA, BMP ####[facility] ([id number])[address] [address], [place] [address] Calcium [Mass/Vol] 8.9 mg/dL Normal 8.5-10.[address] [facility] Comment on above: Performed By: #### C BCA, BMP ####[facility] ([id number])[address] [address] [place] [address] Chloride [Moles/Vol] 102 mmol/L Normal 98-109 [facility] Comment on above: Performed By: #### C BCA, BMP ####[facility] ([id number])[address] [address] [place] [address] CO2 [Moles/Vol] 31 mmol/L Normal 22-32 [facility] Comment on above: Performed By: #### C BCA, BMP ####[facility] ([id number])[address] [address] [address] Creatinine [Mass/Vol] 0.51 mg/dL Normal 0.40-1.00 [facility] Comment on above: Result Comment: METH OD TRACEABLE TO IDMS STANDARD Performed By: #### C BCA, BMP ####[facility] ([id number])[address] [address], [place] [address] eGFR (CKD-EPI) NON-RACE DEPENDENT >90 Normal >59 [facility] Comment on above: Result Comment: Reported eGFR is based on the CKD-EPI 2020 equation that does not use a race coefficient. Performed By: #### C BCA, BMP ####[facility] ([id number])[address] [address] [place] [address] Glucose [Mass/Vol] 100 mg/dL High 65-[address] [facility] Comment on above: Performed By: #### C BCA, BMP ####[facility] ([id number])[address] [address], [place] [address] Potassium [Moles/Vol] 4.0 mmol/L Normal 3.5-5.0 [facility] Comment on above: Performed By: #### C BCA, BMP ####[facility] ([id number])[address] [address] [place] [address] Sodium [Moles/Vol] 136 mmol/L Normal 134-[address] [facility] Comment on above: Performed By: #### C BCA, BMP ####[facility] ([id number])[address] [address] [place] [address] Urea nitrogen [Mass/Vol] 10 mg/dL Normal 5-27 [facility] Comment on above: Performed By: #### C BCA, BMP ####[facility] ([id number])[address] [address] CBC AND AUTO DIFFon 07-27-20 ABSOLUTE BASOPHIL 0.0 X10E9/L Normal 0.0-0.[address] [facility] Comment on above: Performed By: #### C BCA, BMP ####[facility] ([id number])[address] [address] ABSOLUTE NEUTROPHIL 3.7 X10E9/L Normal 1.5-6.6 [facility] Comment on above: Performed By: #### C BCA, BMP ####[facility] ([id number])[address] [address] Basophils/100 WBC (Bld) 0.5 % Normal [facility] Comment on above: Performed By: #### C BCA, BMP ####[facility] ([id number])[address] [address] Eosinophils (Bld) [#/Vol] 0.2 10*3/uL Normal 0.0-0.4 [facility] Comment on above: Performed By: #### C BCA, BMP ####[facility] ([id number])[address] [place] [address] Eosinophils/100 WBC (Bld) 2.5 % Normal [facility] Comment on above: Performed By: #### C AGUILA, BMP ####[facility] ([id number])[address], [address], [place] [address] Erythrocyte distribution width (RBC) [Ratio] 14.3 % Normal 11.5-15.0 [facility] Comment on above: Performed By: #### C AGUILA, BMP ####[facility] ([id number])[address] [place] [address] Hematocrit (Bld) [Volume fraction] 32.4 % Low 35-47 [facility] Comment on above: Performed By: #### C AGUILA, BMP ####[facility] ([id number])[address] [address] [place] [address] Hemoglobin (Bld) [Mass/Vol] 10.9 g/dL Low 11.7-15.5 [facility] Comment on above: Performed By: #### C AGUILA, BMP ####[facility] ([id number])[address] [address] [place] [address] Lymphocytes (Bld) [#/Vol] 2.0 10*3/uL Normal 1.0-3.5 [facility] Comment on above: Performed By: #### C AGUILA, BMP ####[facility] ([id number])[address] [address] [place] [address] Lymphocytes/100 WBC (Bld) 29.2 % Normal [facility] Comment on above: Performed By: #### C BCA, BMP ####[facility] ([id number])[address] [place] [address] MCH (RBC) [Entitic mass] 30.2 pg Normal 27-34 [facility] Comment on above: Performed By: #### C AGUILA, BMP ####[facility] ([id number])[address], [address], [place] [address] MCHC (RBC) [Mass/Vol] 33.6 g/dL Normal 32-36 [facility] Comment on above: Performed By: #### C AGUILA, BMP ####[facility] ([id number])[address], [address], [place] [address] MCV (RBC) [Entitic vol] 90 fL Normal 80-100 [facility] Comment on above: Performed By: #### C AGUILA, BMP ####[facility] ([id number])[address], [place] [address] Monocytes (Bld) [#/Vol] 0.8 10*3/uL Normal 0-0.9 [facility] Comment on above: Performed By: #### C AGUILA, BMP ####[facility] ([id number])[address], [address], [place] [address] Monocytes/100 WBC (Bld) 12.5 % Normal [facility] Comment on above: Performed By: #### C AGUILA, BMP ####[facility] ([id number])[address], [address], [place] [address] Neutrophils/100 WBC (Bld) 55.3 % Normal [facility] Comment on above: Performed By: #### C AGUILA, BMP ####[facility] ([id number])[address], [address], [place] [address] Platelet mean volume (Bld) [Entitic vol] 8.8 fL Normal 7-12 [facility] Comment on above: Performed By: #### C AGUILA, BMP ####[facility] ([id number])[address], [place] [address] Platelets (Bld) [#/Vol] 167 10*3/uL Normal 150-450 [facility] Comment on above: Performed By: #### C BCA, BMP ####[facility] ([id number])[address], [address], [place] [address] RBC COUNT 3.62 X10E12/L Low 3.80-5.20 [facility] Comment on above: Performed By: #### C BCA, BMP ####[facility] ([id number])[address], [address] [place] [address] WBC (Bld) [#/Vol] 6.7 10*3/uL Normal 4.0-11.[address] [facility] Comment on above: Performed By: #### C BCA, BMP ####[facility] ([id number])[address], [address] [address] BASIC METABOLIC PANLon 07-26 Anion gap [Moles/Vol] 4 mmol/L Low 5-15 [facility] Comment on above: Performed By: #### C BCA, BMP ####[facility] ([id number])[address], [address] [place] [address] Calcium [Mass/Vol] 8.2 mg/dL Low 8.5-10.[address] [facility] Comment on above: Performed By: #### C BCA, BMP ####[facility] ([id number])[address], [address] [place] [address], [place] [address] Chloride [Moles/Vol] 103 mmol/L Normal 98-109 [facility] Comment on above: Performed By: #### C BCA, BMP ####[facility] ([id number])[address], [address] [place] [address] CO2 [Moles/Vol] 29 mmol/L Normal 22-32 [facility] Comment on above: Performed By: #### C BCA, BMP ####[facility] ([id number])[address] [address] [place] [address] Creatinine [Mass/Vol] 0.60 mg/dL Normal 0.40-1.00 [facility] Comment on above: Result Comment: METH OD TRACEABLE TO IDMS STANDARD Performed By: #### C BCA, BMP ####[facility] ([id number])[address] [address] GFR/1.73 sq M.predicted among non-blacks MDRD (S/P/Bld) [Vol rate/Area] 89 mL/min/{1.73_m2} Normal >59 [facility] Comment on above: Result Comment: Reported eGFR is based on the CKD-EPI 2020 equation that does not use a race coefficient. Performed By: #### C BCA, BMP ####[facility] ([id number])[address] [address] Glucose [Mass/Vol] 114 mg/dL High 65-[address] [facility] Comment on above: Performed By: #### C BCA, BMP ####[facility] ([id number])[address] [address] Potassium [Moles/Vol] 4.1 mmol/L Normal 3.5-5.0 [facility] Comment on above: Performed By: #### C BCA, BMP ####[facility] ([id number])[address] [address] Sodium [Moles/Vol] 136 mmol/L Normal 134-[address] [facility] Comment on above: Performed By: #### C BCA, BMP ####[facility] ([id number])[address] [address] Urea nitrogen [Mass/Vol] 10 mg/dL Normal 5-27 [facility] Comment on above: Performed By: #### C BCA, BMP ####[facility] ([id number])[address], [place] [address] CBC AND AUTO DIFFon 11-18-20 24 ABSOLUTE BASOPHIL 0.0 X10E9/L Normal 0.0-0.[address] [facility] Comment on above: Performed By: #### C AGUILA, BMP ####[facility] ([id number])[address], [address], [place] [address] ABSOLUTE NEUTROPHIL 3.6 X10E9/L Normal 1.5-6.6 [facility] Comment on above: Performed By: #### C AGUILA, BMP ####[facility] ([id number])[address] [address] Basophils/100 WBC (Bld) 0.3 % Normal [facility] Comment on above: Performed By: #### C AGUILA, BMP ####[facility] ([id number])[address] [address] [place] [address] Eosinophils (Bld) [#/Vol] 0.1 10*3/uL Normal 0.0-0.4 [facility] Comment on above: Performed By: #### C AGUILA, BMP ####[facility] ([id number])[address] [address] [address] Eosinophils/100 WBC (Bld) 2.3 % Normal [facility] Comment on above: Performed By: #### C AGUILA, BMP ####[facility] ([id number])[address] [address], [place] [address] Erythrocyte distribution width (RBC) [Ratio] 14.3 % Normal 11.5-15.0 [facility] Comment on above: Performed By: #### C AGUILA, BMP ####[facility] ([id number])[address], [place] [address] Hematocrit (Bld) [Volume fraction] 27.6 % Low 35-47 [facility] Comment on above: Performed By: #### C BCA, BMP ####[facility] ([id number])[address], [address] [address] Hemoglobin (Bld) [Mass/Vol] 9.4 g/dL Low 11.7-15.5 [facility] Comment on above: Performed By: #### C BCA, BMP ####[facility] ([id number])[address], [address] [place] [address] Lymphocytes (Bld) [#/Vol] 1.4 10*3/uL Normal 1.0-3.5 [facility] Comment on above: Performed By: #### C BCA, BMP ####[facility] ([id number])[address] [address] Lymphocytes/100 WBC (Bld) 23.8 % Normal [facility] Comment on above: Performed By: #### C BCA, BMP ####[facility] ([id number])[address] [address], [place] [address] MCH (RBC) [Entitic mass] 30.5 pg Normal 27-34 [facility] Comment on above: Performed By: #### C BCA, BMP ####[facility] ([id number])[address] [address] MCHC (RBC) [Mass/Vol] 34.0 g/dL Normal 32-36 [facility] Comment on above: Performed By: #### C BCA, BMP ####[facility] ([id number])[address] [address] [place] [address], [place] [address] MCV (RBC) [Entitic vol] 90 fL Normal 80-100 [facility] Comment on above: Performed By: #### C BCA, BMP ####[facility] ([id number])[address] [place] [address] Monocytes (Bld) [#/Vol] 0.7 10*3/uL Normal 0-0.9 [facility] Comment on above: Performed By: #### C AGUILA, BMP ####[facility] ([id number])[address] [place] [address] Monocytes/100 WBC (Bld) 12.7 % Normal [facility] Comment on above: Performed By: #### C AGUILA, BMP ####[facility] ([id number])[address] [place] [address] Neutrophils/100 WBC (Bld) 60.9 % Normal [facility] Comment on above: Performed By: #### C AGUILA, BMP ####[facility] ([id number])[address] [place] [address] Platelet mean volume (Bld) [Entitic vol] 8.0 fL Normal 7-12 [facility] Comment on above: Performed By: #### C AGUILA, BMP ####[facility] ([id number])[address] [place] [address] Platelets (Bld) [#/Vol] 135 10*3/uL Low 150-450 [facility] Comment on above: Performed By: #### C AGUILA, BMP ####[facility] ([id number])[address] [place] [address] RBC COUNT 3.07 X10E12/L Low 3.80-5.20 [facility] Comment on above: Performed By: #### C AGUILA, BMP ####[facility] ([id number])[address] [place] [address] WBC (Bld) [#/Vol] 5.9 10*3/uL Normal 4.0-11.[address] [facility] Comment on above: Performed By: #### C AGUILA, BMP ####[facility] ([id number])[address], [place] [address] HGB AND HCTon 07-26-2024 Hematocrit (Bld) [Volume fraction] 30.0 % Low 35-47 [facility] Comment on above: Performed By: #### H H ####[facility] ([id number])[address], [place] [address] Hemoglobin (Bld) [Mass/Vol] 10.3 g/dL Low 11.7-15.5 [facility] Comment on above: Performed By: #### H H ####[facility] ([id number])[address], [place] [address] BASIC METABOLIC PANLon 07-25 Anion gap [Moles/Vol] 7 mmol/L Normal 5-15 [facility] Comment on above: Performed By: #### C BCA, BMP ####[facility] ([id number])[address], [place] [address] Calcium [Mass/Vol] 8.3 mg/dL Low 8.5-10.[address] [facility] Comment on above: Performed By: #### C BCA, BMP ####[facility] ([id number])[address], [place] [address] Chloride [Moles/Vol] 106 mmol/L Normal 98-109 [facility] Comment on above: Performed By: #### C BCA, BMP ####[facility] ([id number])[address] [place] [address] CO2 [Moles/Vol] 26 mmol/L Normal 22-32 [facility] Comment on above: Performed By: #### C BCA, BMP ####[facility] ([id number])[address], [place] [address] Creatinine [Mass/Vol] 0.45 mg/dL Normal 0.40-1.00 [facility] Comment on above: Result Comment: METH OD TRACEABLE TO IDMS STANDARD Performed By: #### C AGUILA, BMP ####[facility] ([id number])[address] [address] [address] eGFR (CKD-EPI) NON-RACE DEPENDENT >90 Normal >59 [facility] Comment on above: Result Comment: Reported eGFR is based on the CKD-EPI 2020 equation that does not use a race coefficient. Performed By: #### C AGUILA, BMP ####[facility] ([id number])[address] [address] [place] [address] Glucose [Mass/Vol] 131 mg/dL High 65-[address] [facility] Comment on above: Performed By: #### C AGUILA, BMP ####[facility] ([id number])[address] [address] [place] [address] Potassium [Moles/Vol] 4.2 mmol/L Normal 3.5-5.0 [facility] Comment on above: Performed By: #### C AGUILA, BMP ####[facility] ([id number])[address] [address] [place] [address] Sodium [Moles/Vol] 139 mmol/L Normal 134-[address] [facility] Comment on above: Performed By: #### C BCA, BMP ####[facility] ([id number])[address] [address] [place] [address] Urea nitrogen [Mass/Vol] 9 mg/dL Normal 5-27 [facility] Comment on above: Performed By: #### C BCA, BMP ####[facility] ([id number])[address] [address] CBC AND AUTO DIFFon 11-17-20 24 ABSOLUTE BASOPHIL 0.0 X10E9/L Normal 0.0-0.[address] [facility] Comment on above: Performed By: #### C BCA, BMP ####[facility] ([id number])[address], [place] [address] ABSOLUTE NEUTROPHIL 6.6 X10E9/L Normal 1.5-6.6 [facility] Comment on above: Performed By: #### C BCA, BMP ####[facility] ([id number])[address], [place] [address] Basophils/100 WBC (Bld) 0.1 % Normal [facility] Comment on above: Performed By: #### C AUGILA, BMP ####[facility] ([id number])[address] [address] [place] [address] Eosinophils (Bld) [#/Vol] 0.0 10*3/uL Normal 0.0-0.4 [facility] Comment on above: Performed By: #### C AGUILA, BMP ####[facility] ([id number])[address] [address] [place] [address] Eosinophils/100 WBC (Bld) 0.0 % Normal [facility] Comment on above: Performed By: #### C AGUILA, BMP ####[facility] ([id number])[address] [address], [place] [address] Erythrocyte distribution width (RBC) [Ratio] 13.8 % Normal 11.5-15.0 [facility] Comment on above: Performed By: #### C BCA, BMP ####[facility] ([id number])[address], [place] [address] Hematocrit (Bld) [Volume fraction] 31.5 % Low 35-47 [facility] Comment on above: Performed By: #### C BCA, BMP ####[facility] ([id number])[address], [place] [address] Hemoglobin (Bld) [Mass/Vol] 10.8 g/dL Low 11.7-15.5 [facility] Comment on above: Performed By: #### C BCA, BMP ####[facility] ([id number])[address], [address] [place] [address] Lymphocytes (Bld) [#/Vol] 0.9 10*3/uL Low 1.0-3.5 [facility] Comment on above: Performed By: #### C BCA, BMP ####[facility] ([id number])[address] [address] Lymphocytes/100 WBC (Bld) 10.9 % Normal [facility] Comment on above: Performed By: #### C BCA, BMP ####[facility] ([id number])[address] [address] MCH (RBC) [Entitic mass] 30.3 pg Normal 27-34 [facility] Comment on above: Performed By: #### C BCA, BMP ####[facility] ([id number])[address] [address] MCHC (RBC) [Mass/Vol] 34.4 g/dL Normal 32-36 [facility] Comment on above: Performed By: #### C BCA, BMP ####[facility] ([id number])[address] [place] [address] MCV (RBC) [Entitic vol] 88 fL Normal 80-100 [facility] Comment on above: Performed By: #### C BCA, BMP ####[facility] ([id number])[address] [place] [address] Monocytes (Bld) [#/Vol] 0.5 10*3/uL Normal 0-0.9 [facility] Comment on above: Performed By: #### C BCA, BMP ####[facility] ([id number])[address] [place] [address] Monocytes/100 WBC (Bld) 6.2 % Normal [facility] Comment on above: Performed By: #### C AGUILA, BMP ####[facility] ([id number])[address] [place] [address] Neutrophils/100 WBC (Bld) 82.8 % Normal [facility] Comment on above: Performed By: #### C AGUILA, BMP ####[facility] ([id number])[address] [place] [address] Platelet mean volume (Bld) [Entitic vol] 7.9 fL Normal 7-12 [facility] Comment on above: Performed By: #### C AGUILA, BMP ####[facility] ([id number])[address] [address] [place] [address] Platelets (Bld) [#/Vol] 167 10*3/uL Normal 150-450 [facility] Comment on above: Performed By: #### Jori SHEEHAN, BMP ####[facility] ([id number])[address], [place] [address] RBC COUNT 3.58 X10E12/L Low 3.80-5.20 [facility] Comment on above: Performed By: #### Jori SHEEHAN, BMP ####[facility] ([id number])[address] [address], [place] [address] WBC (Bld) [#/Vol] 7.9 10*3/uL Normal 4.0-11.[address] [facility] Comment on above: Performed By: #### C AGUILA, BMP ####[facility] ([id number])[address], [place] [address] HGB AND HCTon 07-25-2024 Hematocrit (Bld) [Volume fraction] 30.3 % Low 35-47 [facility] Comment on above: Performed By: #### H H ####[facility] ([id number])[address] [address] [place] [address] Hemoglobin (Bld) [Mass/Vol] 10.5 g/dL Low 11.7-15.5 [facility] Comment on above: Performed By: #### H H ####[facility] ([id number])[address] [address] [place] [address] Hematocrit (Bld) [Volume fraction] 32.4 % Low 35-47 [facility] Comment on above: Performed By: #### H H ####[facility] ([id number])[address] [address] Hemoglobin (Bld) [Mass/Vol] 11.0 g/dL Low 11.7-15.5 [facility] Comment on above: Performed By: #### H H ####[facility] ([id number])[address] [address] AMYLASEon 07-24-2024 Amylase [Catalytic activity/Vol] 58 U/L Normal 28-100 [facility] Comment on above: Performed By: #### C BCA, 98396-5, PINR, 19862-0, 1798-8, CMP, 3040-3, 5643-2 #### [facility] ([id number]) [address] [address] CBC AND AUTO DIFFon 07-24-20 ABSOLUTE BASOPHIL 0.0 X10E9/L Normal 0.0-0.[address] [facility] Comment on above: Performed By: #### C BCA, 71476-3, PINR, 85472-3, 1798-8, CMP, 3040-3, 5643-2 #### [facility] ([id number]) [address] [address] ABSOLUTE NEUTROPHIL 7.7 X10E9/L High 1.5-6.6 [facility] Comment on above: Performed By: #### C BCA, 67269-5, PINR, 89891-5, 1798-8, CMP, 3040-3, 5643-2 #### [facility] ([id number]) [address] [place] [address] Basophils/100 WBC (Bld) 0.5 % Normal [facility] Comment on above: Performed By: #### C BCA, 75404-6, PINR, 13674-3, 8-8, CMP, 3040-3, 5643-2 #### [facility] ([id number]) [address] [address] [place] [address] Eosinophils (Bld) [#/Vol] 0.0 10*3/uL Normal 0.0-0.4 [facility] Comment on above: Performed By: #### C BCA, 82847-2, PINR, 25200-7, 1797-8, CMP, 3040-3, 5643-2 #### [facility] ([id number]) [address], [facility] [address] [place] [address] Eosinophils/100 WBC (Bld) 0.2 % Normal [facility] Comment on above: Performed By: #### C BCA, 82174-1, PINR, 28656-5, 1797-8, CMP, 3040-3, 5643-2 #### [facility] ([id number]) [address] [address] [place] [address] Erythrocyte distribution width (RBC) [Ratio] 13.7 % Normal 11.5-15.0 [facility] Comment on above: Performed By: #### C BCA, 31503-9, PINR, 25353-5, 1798-8, CMP, 3040-3, 5643-2 #### [facility] ([id number]) [address] [address] [place] [address] Hematocrit (Bld) [Volume fraction] 33.9 % Low 35-47 [facility] Comment on above: Performed By: #### C BCA, 40970-6, PINR, 71594-4, 8-8, CMP, 3040-3, 5643-2 #### [facility] ([id number]) [address], [facility] [address] [place] [address] Hemoglobin (Bld) [Mass/Vol] 11.6 g/dL Low 11.7-15.5 [facility] Comment on above: Performed By: #### C BCA, 16419-5, PINR, 95297-4, 1797-8, CMP, 3040-3, 5643-2 #### [facility] ([id number]) [address] [address] Lymphocytes (Bld) [#/Vol] 1.5 10*3/uL Normal 1.0-3.5 [facility] Comment on above: Performed By: #### C BCA, 09520-0, PINR, 97995-3, 1797-8, CMP, 3040-3, 5643-2 #### [facility] ([id number]) [address] [address] Lymphocytes/100 WBC (Bld) 14.5 % Normal [facility] Comment on above: Performed By: #### C BCA, 31088-2, PINR, 43707-5, 1797-8, CMP, 3040-3, 5643-2 #### [facility] ([id number]) [address] [address] MCH (RBC) [Entitic mass] 30.5 pg Normal 27-34 [facility] Comment on above: Performed By: #### C BCA, 83980-1, PINR, 04821-3, 1798-8, CMP, 3040-3, 5643-2 #### [facility] ([id number]) [address] [place] [address] MCHC (RBC) [Mass/Vol] 34.3 g/dL Normal 32-36 [facility] Comment on above: Performed By: #### C BCA, 68700-1, PINR, 42700-1, 1798-8, CMP, 3040-3, 5643-2 #### [facility] ([id number]) [address], [facility] [address] [place] [address] MCV (RBC) [Entitic vol] 89 fL Normal 80-100 [facility] Comment on above: Performed By: #### C BCA, 53224-2, PINR, 01376-6, 1798-8, CMP, 3040-3, 5643-2 #### [facility] ([id number]) [address], [facility] [address] [place] [address] Monocytes (Bld) [#/Vol] 0.9 10*3/uL Normal 0-0.9 [facility] Comment on above: Performed By: #### C BCA, 57851-6, PINR, 63859-5, 1798-8, CMP, 3040-3, 5643-2 #### [facility] ([id number]) [address], [address] [address] Monocytes/100 WBC (Bld) 8.7 % Normal [facility] Comment on above: Performed By: #### C BCA, 48201-3, PINR, 80402-4, 1798-8, CMP, 3040-3, 5643-2 #### [facility] ([id number]) [address] [address] [place] [address] Neutrophils/100 WBC (Bld) 76.1 % Normal [facility] Comment on above: Performed By: #### C BCA, 70289-4, PINR, 52294-3, 1798-8, CMP, 3040-3, 5643-2 #### [facility] ([id number]) [address], [address] [place] [address] Platelet mean volume (Bld) [Entitic vol] 8.1 fL Normal 7-12 [facility] Comment on above: Performed By: #### C BCA, 87786-9, PINR, 89931-7, 1798-8, CMP, 3040-3, 5643-2 #### [facility] ([id number]) [address], [address] [place] [address] Platelets (Bld) [#/Vol] 176 10*3/uL Normal 150-450 [facility] Comment on above: Performed By: #### C BCA, 27800-0, PINR, 15473-2, 1798-8, CMP, 3040-3, 5643-2 #### [facility] ([id number]) [address], [address] [place] [address] RBC COUNT 3.81 X10E12/L Normal 3.80-5.20 [facility] Comment on above: Performed By: #### C BCA, 55071-0, PINR, 47179-9, 1798-8, CMP, 3040-3, 5643-2 #### [facility] ([id number]) [address], [address] [place] [address] WBC (Bld) [#/Vol] 10.2 10*3/uL Normal 4.0-11.0 [facility] Comment on above: Performed By: #### C BCA, 61571-8, PINR, 95522-2, 1798-8, CMP, 3040-3, 5643-2 #### [facility] ([id number]) [address], [address] [place] [address] COMPREHENSIVE METABOLIC PANE Vinnie 07-24-2024 Albumin [Mass/Vol] 3.7 g/dL Normal 3.2-5.[address] [facility] Comment on above: Performed By: #### C BCA, 07491-5, PINR, 68224-4, 1798-8, CMP, 3040-3, 5643-2 #### [facility] ([id number]) [address], [address] [place] [address] ALP [Catalytic activity/Vol] 58 U/L Normal 39-130 [facility] Comment on above: Performed By: #### C BCA, 05555-6, PINR, 31838-9, 1798-8, CMP, 3040-3, 5643-2 #### [facility] ([id number]) [address], [address] [place] [address] ALT [Catalytic activity/Vol] 13 U/L Normal 0-31 [facility] Comment on above: Performed By: #### C BCA, 97366-5, PINR, 29363-7, 1798-8, CMP, 3040-3, 5643-2 #### [facility] ([id number]) [address], [address] [place] [address] Anion gap [Moles/Vol] 9 mmol/L Normal 5-15 [facility] Comment on above: Performed By: #### C BCA, 96723-5, PINR, 97941-7, 1798-8, CMP, 3040-3, 5643-2 #### [facility] ([id number]) [address], [address] [place] [address] AST [Catalytic activity/Vol] 21 U/L Normal 0-41 [facility] Comment on above: Performed By: #### C BCA, 96420-2, PINR, 73877-9, 1798-8, CMP, 3040-3, 5643-2 #### [facility] ([id number]) [address], [address] [place] [address] Bilirubin [Mass/Vol] 1.1 mg/dL Normal 0.3-1.2 [facility] Comment on above: Performed By: #### C BCA, 79188-0, PINR, 58991-6, 1798-8, CMP, 3040-3, 5643-2 #### [facility] ([id number]) [address] [place] [address] Calcium [Mass/Vol] 8.5 mg/dL Normal 8.5-10.[address] [facility] Comment on above: Performed By: #### C BCA, 38052-4, PINR, 08471-7, 1798-8, CMP, 3040-3, 5643-2 #### [facility] ([id number]) [address] [address] [place] [address] Chloride [Moles/Vol] 104 mmol/L Normal 98-109 [facility] Comment on above: Performed By: #### C BCA, 49444-0, PINR, 45184-8, 8-8, CMP, 3040-3, 5643-2 #### [facility] ([id number]) [address] [address] [place] [address] CO2 [Moles/Vol] 24 mmol/L Normal 22-32 [facility] Comment on above: Performed By: #### C BCA, 63398-1, PINR, 62943-8, 1798-8, CMP, 3040-3, 5643-2 #### [facility] ([id number]) [address] [address] [place] [address] Creatinine [Mass/Vol] 0.54 mg/dL Normal 0.40-1.00 [facility] Comment on above: Result Comment: METH OD TRACEABLE TO IDMS STANDARD Performed By: #### C BCA, 09242-1, PINR, 60528-8, 1798-8, CMP, 3040-3, 5643-2 #### [facility] ([id number]) [address], [address] [place] [address] eGFR (CKD-EPI) NON-RACE DEPENDENT >90 Normal >59 [facility] Comment on above: Result Comment: Reported eGFR is based on the CKD-EPI 2020 equation that does not use a race coefficient. Performed By: #### C BCA, 13229-6, PINR, 47640-5, 1798-8, CMP, 3040-3, 5643-2 #### [facility] ([id number]) [address], [address] [place] [address] Glucose [Mass/Vol] 132 mg/dL High 65-[address] [facility] Comment on above: Performed By: #### C BCA, 03179-5, PINR, 68501-0, 1798-8, CMP, 3040-3, 5643-2 #### [facility] ([id number]) [address], [address] [place] [address] Potassium [Moles/Vol] 4.2 mmol/L Normal 3.5-5.0 [facility] Comment on above: Performed By: #### C BCA, 27694-4, PINR, 81627-5, 1798-8, CMP, 3040-3, 5643-2 #### [facility] ([id number]) [address], [address] [place] [address] Protein [Mass/Vol] 5.9 g/dL Low 6.0-8.[address] [facility] Comment on above: Performed By: #### C BCA, 99479-6, PINR, 19499-1, 1798-8, CMP, 3040-3, 5643-2 #### [facility] ([id number]) [address], [address] [place] [address] Sodium [Moles/Vol] 137 mmol/L Normal 134-[address] [facility] Comment on above: Performed By: #### C BCA, 84170-3, PINR, 41918-1, 1798-8, CMP, 3040-3, 5643-2 #### [facility] ([id number]) [address] [place] [address] Urea nitrogen [Mass/Vol] 10 mg/dL Normal 5-27 [facility] Comment on above: Performed By: #### C BCA, 59396-6, PINR, 54502-9, 1798-8, CMP, 3040-3, 5643-2 #### [facility] ([id number]) [address] [place] [address] CT BRAIN WO CONTon CT BRAIN WO CONT CT BRAIN WO CONT Exam: CT brain without contrast. CLINICAL HISTORY: Fall, pain TECHNIQUE: CT brain without intravenous contrast. COMPARISON: None FINDINGS: Diffuse cerebral atrophy. There is patchy periventricular hypodensity, consistent with chronic small vessel ischemic changes. There is no evidence of acute intracranial bleeding, mass effect, or CT evidence of acute ischemia/infarct. The midline structures are intact, no midline shift. The ventricles and basal cisterns are within normal limits. The brainstem and cerebellum are unremarkable. The visualized intraorbital contents are unremarkable. The paranasal sinuses and mastoid air cells are well aerated. No acute osseous abnormality in the visualized skull base and calvarium. IMPRESSION: No acute intracranial pathology. Chronic changes as above. All CT scans at this facility use dose modulation, iterative reconstruction, and/or weight based dosing when appropriate to reduce radiation dose to as low as reasonably achievable. Finalized by Gulshan Huff on 07/24/2024 7:31 PM Normal [facility] CT CERVICAL SPINE WO CONTon 07-24-2024 CT CERVICAL SPINE WO CONT CT CERVICAL SPINE WO CONT CLINICAL INFORMATION: major trauma injury TECHNIQUE: CT CERVICAL SPINE WO CONT CT images of the cervical spine were obtained. Images are reformatted in sagittal and coronal planes. Moderate to severe multilevel cervical degenerative changes noted. There is no prevertebral soft tissue swelling. No acute cervical spine fracture identified. Lung apices are clear. IMPRESSION: No acute findings. All CT scans at this facility use dose modulation, iterative reconstruction, and/or weight based dosing when appropriate to reduce radiation dose to as low as reasonably achievable. Finalized by Herbert Chatman MD on 07/24/2024 7:29 PM Normal [facility] CT CHEST W CONTon 07-24-2024 CT CHEST W CONT CT CHEST W CONT Study: CT chest with contrast History:Major trauma Protocol:CT chest with contrast Contrast 100 mL Omnipaque 300 COMPARISON:No prior Findings: Lower Neck:Normal Mediastinum:No adenopathy Elvia:Small right hilar lymph node likely reactive Vessels:No aortic aneurysm. Atherosclerotic calcification in the descending thoracic aorta. No evidence of aortic injury Heart:Normal size. Pacemaker wires. Severe coronary artery calcification. Lungs:No pulmonary contusion no pneumonia. Pleura:No effusion Chest wall:Pacemaker on the left. No contusion. Upper abdomen:Normal Bones:No clavicle fracture. No scapular fracture. No displaced rib fracture. Degenerative changes throughout the thoracic spine no thoracic spine fracture. No sternal fracture. Impression: No CT evidence of intrathoracic trauma. All CT scans at this facility use dose modulation, iterative reconstruction, and/or weight based dosing when appropriate to reduce radiation dose to as low as reasonably achievable. Finalized by Darian Velazquez MD on 07/24/2024 7:28 PM Normal [facility] CT CTA ABD AND PELVISon 07-09 CT CTA ABD AND PELVIS CT CTA ABD AND PELVIS CTA ABDOMEN AND PELVIS History: Trauma status post fall with pelvic hematoma Technique: CT angiography of the abdomen, and pelvis was performed using pre-contrast imaging and thin-section imaging during the arterial phase of enhancement. Delayed post-contrast images were also obtained Contrast: 100 mL Omnipaque 350 IV Comparison: None. POST PROCESSIND advanced post-processing was performed by the interpreting physician using an independent workstation utilizing a combination of MIP and MPR techniques to better evaluate anatomy and disease process. 3D rendering was performed with physician participation and supervision. All CT scans at this facility use dose modulation, iterative reconstruction, and/or weight based dosing when appropriate to reduce radiation dose to as low as reasonably achievable. FINDINGS: Aorta: Patent. There is no intramural hematoma, dissection or penetrating atherosclerotic ulcer. Mild atherosclerotic disease. Celiac artery: Patent. Replaced left hepatic artery arising from the left gastric artery, normal variant. Superior mesenteric artery: Patent. Inferior mesenteric artery: Patent Renal arteries: Patent, single bilaterally Common iliac arteries: Patent External iliac arteries: Patent Internal iliac arteries: Patent. Fusiform aneurysm of the left internal iliac artery at the level of the bifurcation measuring 1.4 cm. 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 Additional findings: * Lower chest is unremarkable. * The liver, gallbladder, spleen, bilateral adrenals, kidneys, pancreas are unremarkable. No evidence of traumatic injury. * Urinary bladder is decompressed over a Segal catheter with contrast seen around the Segal. No contrast extravasation to suggest bladder injury. * Streak artifact from the right hip prosthesis limits adequate evaluation of the pelvis. Minimally displaced fracture of the left inferior pubic ramus (series 312 image 637). Minimally displaced fracture involving the right superior pubic ramus near the symphysis pubis (series 312 image 580). Right anterior pelvic hematoma measuring approximately 6.6 x 3.9 cm. No evidence of active arterial extravasation. * Colonic diverticulosis. Small hiatal hernia. No mesenteric hematoma. IMPRESSION: 1. No acute aortic injury. No evidence of active arterial extravasation in the abdomen and pelvis. 2. Minimally displaced pelvic fractures with associated right anterior pelvic hematoma measuring 6.6 x 3.9 cm. 3. Bilateral internal iliac artery aneurysms. 4. Additional/incidental findings as described Finalized by George Lerner MD on 07/24/2024 7:41 PM Normal [facility] DRUG SCREEN, URINEon 024 AMPHETAMINE/METHAMP Negative Normal NEG [facility] Comment on above: Result Comment: AMPH /METH screening cut off = 1000 ng/mL Performed By: #### D TREVINO ####[facility] ([id number])[address] [place] [address] BARBITURATES Negative Normal NEG [facility] Comment on above: Result Comment: Kalyani iturates screening cut off value = 200 ng/mL Performed By: #### D TREVINO ####[facility] ([id number])[address] [place] [address] BENZODIAZEPINES Negative Normal NEG [facility] Comment on above: Result Comment: Andrea odiazepines screening cut off value = 200 ng/mL Performed By: #### D TREVINO ####[facility] ([id number])[address] [address] CANNABINOIDS Negative Normal NEG [facility] Comment on above: Result Comment: Nathalia abinoids/THC screening cut off value = 50 ng/mL Performed By: #### D TREVINO ####[facility] ([id number])[address] [place] [address] COCAINE METABOLITE Negative Normal NEG [facility] Comment on above: Result Comment: Coca ine screening cut off value = 300 ng/mL Performed By: #### D TREVINO ####[facility] ([id number])[address] [place] [address] ECSTASY Negative Normal NEG [facility] Comment on above: Result Comment: Ecst asy screening cut off value = 500 ng/mL This report is intended for use in clinical monitoring or management of patients. Performed By: #### D TREVINO ####[facility] ([id number])[address] [place] [address] METHADONE Negative Normal [facility] Comment on above: Result Comment: Meth adone screening cut off value = 300 ng/mL. Performed By: #### D TREVINO ####[facility] ([id number])[address] [place] [address] OPIATES Positive Abnormal NEG [facility] Comment on above: Result Comment: Conf irmation available upon request. Opiates screening cut off value = 300 ng/mL NOTE: This test is used for the detection of codeine, hydrocodone (>1000 ng/mL), morphine and hydromorphone (>900 ng/mL) in urine. Performed By: #### D TREVINO ####[facility] ([id number])[address] [place] [address] OXYCODONE Negative Normal NEG [facility] Comment on above: Result Comment: Oxyc odone screening cut off value = 300 ng/mL NOTE: This test is used for the detection of oxycodone and oxymorphone in urine. Performed By: #### D TREVINO ####[facility] ([id number])[address] [address] PHENCYCLIDINE Negative Normal NEG [facility] Comment on above: Result Comment: Phen cyclidine screening cut off value = 25 ng/mL Performed By: #### D TREVINO ####[facility] ([id number])[address] [address] ETHANOLon 07-24-2024 Ethanol [Mass/Vol] mg/dL Normal 0.00-0.[address] [facility] Comment on above: Result Comment: This report is intended for use in clinical monitoring or management of patients. Performed By: #### C BCA, 76700-9, PINR, 46603-1, 1798-8, CMP, 3040-3, 5643-2 ####[facility] ([id number])[address] [address] Fibrinogen Coagulation.deriv ed (PPP) [Mass/Vol]on 07-24-2024 FIBRINOGEN 178 mg/dL Low 190-480 [facility] Comment on above: Performed By: #### C BCA, 87107-7, PINR, 80701-4, 1798-8, CMP, 3040-3, 5643-2 #### [facility] ([id number]) [address] [address] Glucose Glucometer (BldC) [M ass/Vol]on 07-24-2024 Glucose [Mass/Vol] 133 mg/dL High 65-[address] [facility] LIPASEon 07-24-2024 Lipase [Catalytic activity/Vol] 19 U/L Normal 82 [facility] Comment on above: Performed By: #### C BCA, 82865-0, PINR, 28544-3, 1798-8, CMP, 3040-3, 5643-2 #### [facility] ([id number]) [address] [address] [place] [address] POC CHEM7 W/ HCTon 4 Chloride [Moles/Vol] 100 mmol/L Normal 98-109 [facility] Comment on above: Performed By: #### I 8XCA #### [facility] ([id number]) [address] [place] [address] CO2 [Moles/Vol] 27 mmol/L Normal 22-32 [facility] Comment on above: Performed By: #### I 8XCA #### [facility] ([id number]) [address] [place] [address] Creatinine [Mass/Vol] 0.5 mg/dL Normal 0.4-1.0 [facility] Comment on above: Result Comment: METH OD TRACEABLE TO IDMS STANDARD Performed By: #### I 8XCA #### [facility] ([id number]) [address] [place] [address] eGFR (CKD-EPI) NON-RACE DEPENDENT >90 Normal >59 [facility] Comment on above: Result Comment: Reported eGFR is based on the CKD-EPI 2020 equation that does not use a race coefficient. Performed By: #### I 8XCA #### [facility] ([id number]) [address] [place] [address] Glucose [Mass/Vol] 130 mg/dL High 65-[address] [facility] Comment on above: Performed By: #### I 8XCA #### [facility] ([id number]) [address] [place] [address] Hematocrit (Bld) [Volume fraction] 34 % Low 35-47 [facility] Comment on above: Performed By: #### I 8XCA #### [facility] ([id number]) [address] [place] [address] Potassium [Moles/Vol] 4.2 mmol/L Normal 3.5-5.0 [facility] Comment on above: Performed By: #### I 8XCA #### [facility] ([id number]) [address] [place] [address] Sodium [Moles/Vol] 138 mmol/L Normal 134-[address] [facility] Comment on above: Performed By: #### I 8XCA #### [facility] ([id number]) [address] [place] [address] Urea nitrogen [Mass/Vol] 10 mg/dL Normal 6-27 [facility] Comment on above: Performed By: #### I 8XCA #### [facility] ([id number]) [address] [place] [address] PROTIME AND INRon 07-24-2024 INR Coag (PPP) [Relative time] 1.0 {INR} Normal 0.8-1.1 [facility] Comment on above: Performed By: #### C BCA, 34303-5, PINR, 41124-6, 1798-8, CMP, 3040-3, 5643-2 #### [facility] ([id number]) [address] [place] [address] PT Coag (PPP) [Time] 12.2 s Normal 9.8-13.2 [facility] Comment on above: Performed By: #### C BCA, 76841-0, PINR, 90494-4, 1798-8, CMP, 3040-3, 5643-2 #### [facility] ([id number]) [address] [place] [address] URINALYSISon 07-24-2024 Bilirubin Ql (U) Negative Normal NEG [facility] Comment on above: Performed By: #### U A ####[facility] ([id number])[address] [address] BLOOD/HGB Negative Normal NEG [facility] Comment on above: Performed By: #### U A ####[facility] ([id number])[address], [place] [address] Color (U) YELLOW Normal YELLOW [facility] Comment on above: Performed By: #### U A ####[facility] ([id number])[address], [place] [address] Glucose Ql (U) Negative Normal NEG [facility] Comment on above: Performed By: #### U A ####[facility] ([id number])[address], [place] [address] Ketones Ql (U) Negative Normal NEG [facility] Comment on above: Performed By: #### U A ####[facility] ([id number])[address], [place] [address] Leukocyte esterase Test strip Ql (U) Negative Normal NEG [facility] Comment on above: Performed By: #### U A ####[facility] ([id number])[address], [place] [address] Nitrite Ql (U) Negative Normal NEG [facility] Comment on above: Performed By: #### U A ####[facility] ([id number])[address], [address], [place] [address] pH (U) 6.5 [pH] Normal 5.0-8.5 [facility] Comment on above: Performed By: #### U A ####[facility] ([id number])[address], [address], [place] [address] Protein Ql (U) Negative Normal NEG [facility] Comment on above: Performed By: #### U A ####[facility] ([id number])[address], [address], [place] [address] Specific gravity (U) [Rel density] 1.025 Normal 1.003-1.035 [facility] Comment on above: Performed By: #### U A ####[facility] ([id number])[address], [address] [place] [address] TURBIDITY CLEAR Normal CLEAR [facility] Comment on above: Performed By: #### U A ####[facility] ([id number])[address], [address] [place] [address] Urinalysis dipstick W Reflex Microscopic panel (U) URINE RECEIVED WITHOUT PRESERVATIVE-DELAYS IN TRANSPORT MAY AFFECT RESULTS.INTERPRET WITH CAUTION AND CLINICAL CORRELATION IS RECOMMENDED. Normal [facility] Comment on above: Performed By: #### U A ####[facility] ([id number])[address], [address] [place] [address] Urobilinogen (U) [Mass/Vol] mg/dL Normal <1.1 [facility] Comment on above: Performed By: #### U A ####[facility] ([id number])[address] [address] XR CHEST 1 VWon 07-24-2024 XR CHEST 1 VW XR CHEST 1 VW Single view chest History:major traumatic injury acute chest pain. Chest trauma. Comparison: None Findings: Single portable view of the chest. No focal opacity, effusion or pneumothorax. Cardiomediastinal silhouette is within normal limits. Left chest pacemaker device. Atherosclerotic thoracic aorta. Impression: No definitive acute cardiopulmonary process. Finalized by Pranav Doshi MD on 07/24/2024 7:08 PM Normal [facility] XR PELVIS 1 OR 2 VWSon 07-24 XR PELVIS 1 OR 2 VWS XR PELVIS 1 OR 2 VWS XR PELVIS 1 OR 2 VWS Clinical history:major traumatic injury acute pelvic pain Comparison: None. Findings: Radiographic plasty partially visualized. Portions of the right hemipelvis are excluded from the provided imaging. Severe left hip degenerative change. The left hip and left iliac bone arch. Overlying device. If the patient is unable to bear weight or if there is concern for nondisplaced hip fracture, consider correlation with MRI. Impression: No obvious acute process identified within the significant limitations of this examination. Finalized by Pranav Doshi MD on 07/24/2024 7:08 PM Normal [facility] aPTT Coag (PPP) [Time]on aPTT Coag (Bld) [Time] 29 s Normal 26-37 [facility] Comment on above: Performed By: #### C BCA, 12045-3, PINR, 90205-1, 1798-8, CMP, 3040-3, 5643-2 #### [facility] ([id number]) [address] [place] [address], [address] [place] [address] Office Visiton 04-19-2024 Follow-up visit [id number] Larry Handy A 1940 Date Provider Department Center 04/19/2024 271-KATIE IRWIN ROLAND [facility] Family History Problem Relation Age of Onset Coronary artery disease Mother Heart attack Father Family Status - Relation Status Age at Mother Father Level of Service:00886 [place] OFFICE/OUTPATIENT ESTABLISHED MOD MDM 30 MIN Normal [facility] Telephoneon 03-04-2024 Telephone [id number] Larry Handy A 1940 Provider Department Center 03/04/2024 Raúl5-IMANI BENJAMIN [facility] Family History Problem Relation Age of Onset Coronary artery disease Mother Heart attack Father Family Status - Relation Status Age at Mother Father Normal [facility] Office Visiton 01-23-2024 Follow-up visit [id number] Larry Handy A 1940 Date Provider Department Center 01/23/2024 384Tracy-ROHAN MIRANDA C[facility] Family History Problem Relation Age of Onset Coronary artery disease Mother Heart attack Father Family Status - Relation Status Age at Mother Father Level of Service:[address]64 [place] OFFICE/OUTPATIENT ESTABLISHED LOW MDM 20 MIN Normal [facility] 30on 01-16-2024 30 Problem: Pain - [...] goals for the shift include vss, safety [facility] 30 This report has been cancelled. [facility] DSon 01-16-2024 DS --- Attestation signed by Oli Edmonds MD at [...] be an additional personal documentation from me. Admission Admitted 01/15/2024 for Second degree AV [...] Your Medications These medications were sent to [facility] - [facility] [address] [facility] [address] [facility] [address] doxycycline 100 mg capsule These medications were sent to [facility] [address] [address] metoprolol succinate XL 50 mg 24 hr [...] Patient has no known allergies. Hospital Course Larry Handy is a 83 y.o. female who resides in [place], [place]. 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 She had initial evaluation by Dr. Irwin, 01/12/24 at the [facility] for CP, SOB and bradycardia, with EKG [...] to nifedipine XL. She was sent to [facility] for urgent PPM for symptomatic bradycardia, [...] diet, medication (more content not included)... Normal [facility] NURSNOTEon 01-16-2024 NURSNOTE Discharge paperwork gone over and explained to pt. All questions answered at bedside. Denied further questions. Pt wheeled to main entrance where she was transported home by son. [facility] 30on 01-15-2024 30 The patient is Moderately Stable - Low risk of patient condition declining or worsening The patient's goals for the shift include The clinical goals for the shift include stable vs Normal [facility] CONSULTon 01-15-2024 CONSULT ME Electrophysiology Consult Note [place] Cardiology - [facility] Reason for visit: Bradycardia HPI: Larry Handy is a 83 y.o. year old [...] was seen by Dr Morales today [facility] She states that she still has occasional [...] on file Intimate Partner Violence: Unknown (10/30/2023) [place] Safety & Environment Fear of Current or [...] cyanosis, no p (more content not included)... [facility] 01-15-2024 H&P reviewed. The patient was examined and there are no changes to the H&P. [facility] Reason for follow-up: Symptomatic bradycardia Chief Complaint: Chest pain, palpitation, dizziness HPI: Larry Hadny is a 83 y.o. female who was [...] the patient was in the office with bridal consultant Dr. Edmonsd and we will arrange for her to [...] ventricular es (more content not included)... Normal [facility] NURSNOTEon 01-15-2024 NURSNOTE Chlorhexadine wipes and nasal antiseptic swab completed Normal [facility] Office Visiton 01-15-2024 Follow-up visit [id number] Larry Handy 1940 F Date Provider Department Center 01/15/2024 [id number] MORALES ROLAND [facility] Family History Problem Relation Age of Onset Coronary artery disease Mother Heart attack Father Family Status - Relation Status Age at Mother Father Level of Service:61534 [place] OFFICE/OUTPATIENT ESTABLISHED MOD MDM 30 MIN Normal [facility] 36on 01-14-2024 36 Regarding critical reports [...] her seen by Dr Edmonds or any TAX REVENUE OFFICER sreekanth (today/tomorrow) to arrange for outpatient PPM Thanks Imani, can you please call her? [facility] 36 I have scanned in a few critical reports on patient's event monitor for you to view in her remediation project engineer. Thanks! [facility] Office Visiton 01-12-2024 Follow-up visit [id number] Larry Handy 1940 F Date Provider Department Center 01/12/2024 Natacha-KATIE IRWIN CARD [facility] Family History Problem Relation Age of Onset Coronary artery disease Mother Heart attack Father Family Status - Relation Status Age at Mother Father Level of Service:06811 [place] OFFICE/OUTPATIENT ESTABLISHED HIGH MDM 40 MIN [facility] CBC AUTO DIFFon 07-02-2022 BASO # 0.0 103/ul Normal 0.0-0.1 [facility] Comment on above: Performed By: #### C BC #### [facility] [address] [place] [address] Dr. Miranda Anderson Basophils/100 WBC (Bld) 0.3 % Normal 0.2-2.0 [facility] Comment on above: Performed By: #### C BC #### [facility] [address] [place] [address] Dr. Miranda Anderson EO # 0.1 103/ul Normal 0.0-0.7 [facility] Comment on above: Performed By: #### C BC #### [facility] [address] [place] [address] Dr. Miranda Anderson Eosinophils/100 WBC (Bld) 2.1 % Normal 0.9-7.0 [facility] Comment on above: Performed By: #### C BC #### [facility] [address] [place] [address] Dr. Miranda Anderson Erythrocyte distribution width (RBC) [Ratio] 14.3 % Normal 11.0-15.0 [facility] Comment on above: Performed By: #### C BC #### [facility] [address] [place] [address] Dr. Miranda Anderson Hematocrit (Bld) [Volume fraction] 43.3 % Normal 36.0-48.0 [facility] Comment on above: Performed By: #### C BC #### [facility] [address] [place] [address] Dr. Miranda Anderson Hemoglobin (Bld) [Mass/Vol] 13.5 g/dL Normal 12.0-16.0 [facility] Comment on above: Performed By: #### C BC #### [facility] [address] [place] [address] Dr. Miranda Anderson IG # 0.01 10e3/ul Normal 0.00-0.03 [facility] Comment on above: Performed By: #### C BC #### [facility] [address] [place] [address] Dr. Miranda Anderson IG % 0.2 % Normal 0.0-0.5 [facility] Comment on above: Performed By: #### C BC #### [facility] [address] [place] [address] Dr. Miranda Anderson LYMPH # 3.3 103/ul Normal 1.2-3.8 [facility] Comment on above: Performed By: #### C BC #### [facility] [address] [place] [address] Dr. Miranda Anderson Lymphocytes/100 WBC (Bld) 51.6 % Normal 20.5-60.0 [facility] Comment on above: Performed By: #### C BC #### [facility] [address] [place] [address] Dr. Miranda Anderson MANUAL DIFF REQ NO Normal [facility] Comment on above: Performed By: #### C BC #### [facility] [address] [place] [address] Dr. Miranda Anderson MCH (RBC) [Entitic mass] 28.1 pg Normal 26.7-34.0 [facility] Comment on above: Performed By: #### C BC #### [facility] [address] [place] [address] Dr. Miranda Anderson MCHC (RBC) [Mass/Vol] 31.2 g/dL Normal 29.9-35.2 [facility] Comment on above: Performed By: #### C BC #### [facility] [address] [address] [address] Miranda Anderson MCV (RBC) [Entitic vol] 90.2 fL Normal 81.0-99.0 [facility] Comment on above: Performed By: #### C BC #### [facility] [address] [address] [address] Miranda Anderson MONO # 0.6 103/ul Normal 0.3-0.8 [facility] Comment on above: Performed By: #### C BC #### [facility] [address] [address] [address] Miranda Anderson Monocytes/100 WBC (Bld) 9.4 % Normal 1.7-12.0 [facility] Comment on above: Performed By: #### C BC #### [facility] [address] [place] [address] Dr. Miranda Anderson NEUT # 2.3 103/ul Normal 1.4-6.5 [facility] Comment on above: Performed By: #### C BC #### [facility] [address] [place] [address] Dr. Miranda Anderson Neutrophils/100 WBC (Bld) 36.4 % Critically low 43.0-75.0 [facility] Comment on above: Performed By: #### C BC #### [facility] [address] [place] [address] Dr. Miranda Anderson Platelet mean volume (Bld) [Entitic vol] 12.3 fL Normal 9.5-13.5 [facility] Comment on above: Performed By: #### C BC #### [facility] [address] [place] [address] Dr. Miranda Anderson PLT 241 103/ul Normal 150-450 [facility] Comment on above: Performed By: #### C BC #### [facility] [address] [place] [address] Dr. Miranda Anderson RBC 4.80 106/ul Normal 4.20-5.40 [facility] Comment on above: Performed By: #### C BC #### [facility] [address] [address] [address] Miranda Anderson WBC 6.3 103/ul Normal 4.0-11.0 [facility] Comment on above: Performed By: #### C BC #### [facility] [address] [address] [address] Miranda Anderson LIPID PROFILEon 07-02-2022 CHOL-HDL RATIO NORM SEE BELOW Normal [facility] Comment on above: Result Comment: 3.3 - 4.4 LOW RISK 4.4 - 7.1 AVERAGE RISK 7.1 - 11.0 MODERATE RISK >11.0 HIGH RISK Performed By: #### C MP, LIPID #### [facility] [address] [place] [address] Dr. Miranda Anderson Cholesterol [Mass/Vol] 142 mg/dL Normal <=200 [facility] Comment on above: Performed By: #### C MP, LIPID #### [facility] [address] [address] [address] Miranda Anderson Cholesterol in HDL [Mass/Vol] 71 mg/dL Critically high 40-60 [facility] Comment on above: Performed By: #### C MP, LIPID #### [facility] [address] [address] [address] Miranda Anderson Cholesterol in LDL [Mass/Vol] 61.2 mg/dL Normal [facility] Comment on above: Performed By: #### C MP, LIPID #### [facility] [address] [address] [address] Miranda Anderson Cholesterol.total/C holesterol in HDL [Mass ratio] 2.0 {ratio} Normal [facility] Comment on above: Performed By: #### C MP, LIPID #### [facility] [address] [address] [address] Miranda Anderson HDL NORMAL > or = 60 mg/dl - LO W CARDIOVASCULAR RISK <40 mg/dl - HIGH CARDIOVASCULAR RISK Normal [facility] Comment on above: Performed By: #### C MP, LIPID #### [facility] [address] [address] [address] Miranda Anderson LDL CALC NORMAL SEE BELOW Normal [facility] Comment on above: Result Comment: <100 mg/dl OPTIMAL 100 - 129 mg/dl NEAR OR ABOVE OPTIMAL 130 - 159 mg/dl BORDERLINE HIGH 160 - 189 mg/dl HIGH >190 mg/dl VERY HIGH Performed By: #### C MP, LIPID #### [facility] [address] [place] [address] Dr. Miranda Anderson Triglyceride [Mass/Vol] 49 mg/dL Normal <=150 [facility] Comment on above: Performed By: #### C MP, LIPID #### [facility] [address] [place] [address] Dr. Miranda Anderson VLDL CALC 9.8 mg/dL Normal [facility] Comment on above: Performed By: #### C MP, LIPID #### [facility] [address] [place] [address] Dr. Miranda Anderson PROF 14(COMP METB)on 022 Albumin [Mass/Vol] 3.5 g/dL Normal 3.4-5.0 [facility] Comment on above: Performed By: #### C MP, LIPID #### [facility] [address] [place] [address] Dr. Miranda Anderson Albumin/Globulin [Mass ratio] 1.0 {ratio} Normal [facility] Comment on above: Performed By: #### C MP, LIPID #### [facility] [address] [place] [address] Dr. Miranda Anderson ALP [Catalytic activity/Vol] 71 U/L Normal 46-116 [facility] Comment on above: Performed By: #### C MP, LIPID #### [facility] [address] [place] [address] Dr. Miranda Anderson ALT [Catalytic activity/Vol] 21 U/L Normal 14-59 [facility] Comment on above: Performed By: #### C MP, LIPID #### [facility] [address] [place] [address] Dr. Miranda Anderson Anion gap [Moles/Vol] 7.3 mmol/L Normal [facility] Comment on above: Performed By: #### C MP, LIPID #### [facility] [address] [address] [address] Miranda Anderson AST [Catalytic activity/Vol] 21 U/L Normal 15-37 [facility] Comment on above: Performed By: #### C MP, LIPID #### [facility] [address] [place] [address] Dr. Miranda Anderson Bilirubin [Mass/Vol] 0.4 mg/dL Normal 0.2-1.0 [facility] Comment on above: Performed By: #### C MP, LIPID #### [facility] [address] [place] [address] Dr. Miranda Anderson Calcium [Mass/Vol] 8.8 mg/dL Normal 8.5-10.1 [facility] Comment on above: Performed By: #### C MP, LIPID #### [facility] [address] [place] [address] Dr. Miranda Anderson Chloride [Moles/Vol] 106 mmol/L Normal 98-107 [facility] Comment on above: Performed By: #### C MP, LIPID #### [facility] [address] [place] [address] Dr. Miranda Anderson CO2 [Moles/Vol] 30.0 mmol/L Normal 21.0-32.0 [facility] Comment on above: Performed By: #### C MP, LIPID #### [facility] [address] [place] [address] Dr. Miranda Anderson Creatinine [Mass/Vol] 0.64 mg/dL Normal 0.55-1.02 [facility] Comment on above: Performed By: #### C MP, LIPID #### [facility] [address] [place] [address] Dr. Miranda Anderson EGFR-AF CHINESE >60 Normal >=60 [facility] Comment on above: Performed By: #### C MP, LIPID #### [facility] [address] [place] [address] Dr. Miranda Anderson EGFR-NON AF CHINESE >60 Normal >=60 [facility] Comment on above: Performed By: #### C MP, LIPID #### [facility] [address] [address] [address] Miranda Anderson Globulin (S) [Mass/Vol] 3.4 g/dL Normal [facility] Comment on above: Performed By: #### C MP, LIPID #### [facility] [address] [place] [address] Dr. Miranda Anderson Glucose [Mass/Vol] 91 mg/dL Normal 74-106 [facility] Comment on above: Performed By: #### C MP, LIPID #### [facility] [address] [place] [address] Dr. Miranda Anderson Potassium [Moles/Vol] 4.3 mmol/L Normal 3.5-5.1 [facility] Comment on above: Performed By: #### C MP, LIPID #### [facility] [address] [place] [address] Dr. Miranda Anderson Protein [Mass/Vol] 6.9 g/dL Normal 6.4-8.2 [facility] Comment on above: Performed By: #### C MP, LIPID #### [facility] [address] [place] [address] Dr. Miranda Anderson Sodium [Moles/Vol] 139 mmol/L Normal 136-145 [facility] Comment on above: Performed By: #### C MP, LIPID #### [facility] [address] [place] [address] Dr. Miranda Anderson Urea nitrogen [Mass/Vol] 12.0 mg/dL Normal 7.0-18.0 [facility] Comment on above: Performed By: #### C MP, LIPID #### [facility] [address] [place] [address] Dr. Miranda Anderson Urea nitrogen/Creatinine [Mass ratio] 18.8 mg/mg Normal [facility] Comment on above: Performed By: #### C MP, LIPID #### [facility] [address] [place] [address] Dr. Miranda Anderson Vital Signs Date Time Vital Sign Value Performing Clinician Rosa chong 08-18-2024 10:46-0500 Body height 162.6 cm José Manuel Grissom MD Work Phone: [facility] 08-18-2024 10:46-0500 Body mass index (BMI) [Ratio] 21.63 kg/m2 José Manuel Grissom MD Work Phone: [facility] 08-18-2024 10:46-0500 Body temperature 97.81 [degF] José Manuel Grissom MD Work Phone: [facility] 08-18-2024 10:46-0500 Body weight 57.15 kg José Manuel Grissom MD Work Phone: [facility] 08-18-2024 10:46-0500 Diastolic blood pressure 58 mm[Hg] José Manuel Grissom MD Work Phone: [facility] 08-18-2024 10:46-0500 Heart rate 81 /min José Manuel Grissom MD Work Phone: [facility] 08-18-2024 10:46-0500 Respiratory rate 22 /min José Manuel Grissom MD Work Phone: [facility] 08-18-2024 10:46-0500 SaO2% (BldA) [Mass fraction] 97 % José Manuel Grissom MD Work Phone: [facility] 08-18-2024 10:46-0500 Systolic blood pressure 126 mm[Hg] José Manuel Grissom MD Work Phone: [facility] 06-21-2024 13:09-0400 Body height 162.6 cm José Manuel Grissom MD Work Phone: [facility] 06-21-2024 13:09-0400 Body mass index (BMI) [Ratio] 21.28 kg/m2 José Manuel Grissom MD Work Phone: [facility] 06-21-2024 13:09-0400 Body temperature 97.5 [degF] José Manuel Grissom MD Work Phone: [facility] 06-21-2024 13:09-0400 Body weight 56.25 kg José Manuel Grissom MD Work Phone: [facility] 06-21-2024 13:09-0400 Diastolic blood pressure 56 mm[Hg] José Manuel Grissom MD Work Phone: [facility] 06-21-2024 13:09-0400 Heart rate 70 /min José Manuel Grissom MD Work Phone: [facility] 06-21-2024 13:09-0400 Respiratory rate 20 /min José Manuel Grissom MD Work Phone: [facility] 06-21-2024 13:09-0400 SaO2% (BldA) [Mass fraction] 99 % José Manuel Grissom MD Work Phone: [facility] 06-21-2024 13:09-0400 Systolic blood pressure 140 mm[Hg] José Manuel Grissom MD Work Phone: [facility] Healthcare Encounters Encounter Date Encounter Type Care Provider Facility Start: 11-09-2024 End: 11-09-2024 ambulatory [facility] Start: 10-25-2024 End: 10-25-2024 Bamboo flowsheet Dario Paul NP Work Phone: [facility] Start: 10-25-2024 End: 10-25-2024 Bamboo flowsjasson Paul [employer] OFFICER Work Phone: [facility] Start: 10-25-2024 End: 10-25-2024 ambulatory DARIO PAUL Not Available Start: 10-25-2024 End: 10-25-2024 Office outpatient visit 15 minutes Dario Paul [employer] OFFICER Work Phone: [facility] Comment on above: Closed displaced fra cture of pubis with routine healing, unspecified laterality, subsequent encounter (Primary Dx); Acute pain of both hips Start: 10-05-2024 End: 10-05-2024 ambulatory [facility] Start: 09-20-2024 End: 09-20-2024 Bamboo flowsjasson Paul TAX REVENUE OFFICER Work Phone: [facility] Start: 09-20-2024 End: 01-13-2025 Bamboo flowsheet Dario Paul [employer] RE[employer]UE OFFICER Work Phone: [facility] Start: 09-20-2024 End: 09-20-2024 Office outpatient visit 15 minutes Dario Paul NP Work Phone: [facility] Comment on above: Closed displaced fra cture of pubis with routine healing, unspecified laterality, subsequent encounter; Acute pain of both hips Start: 09-20-2024 End: 09-20-2024 ambulatory DARIO PAUL Not Available Start: 08-23-2024 End: 08-23-2024 Bamboo flowsheet Dario Paul [employer] OFFICER Work Phone: [facility] Start: 08-23-2024 End: 08-23-2024 Bamboo flowsheet Dario Paul [employer] OFFICER Work Phone: [facility] Start: 08-23-2024 End: 08-23-2024 Office outpatient new 30 minutes Dario Paul [employer]AX RE[employer]UE OFFICER Work Phone: [facility] Comment on above: Closed displaced fra cture of pubis with routine healing, unspecified laterality, subsequent encounter (Primary Dx); Acute pain of both hips; Primary osteoarthritis of left hip Start: 08-23-2024 End: 08-23-2024 ambulatory DARIO PAUL Not Available Start: 08-18-2024 End: 08-18-2024 Bamboo flowsheet José Manuel Grissom MD Work Phone: [facility] Start: 08-18-2024 End: 08-18-2024 Bamboo flowsheet José Manuel Grissom MD Work Phone: [facility] Start: 08-18-2024 End: 08-18-2024 Transitional care manage srvc 14 day discharge José Manuel Grissom MD Work Phone: [facility] Comment on above: Closed displaced fra cture of pubis with routine healing, unspecified laterality, subsequent encounter (Primary Dx) Start: 08-18-2024 End: 08-18-2024 Refill José Manuel Grissom MD Work Phone: [facility] Comment on above: Irritable bowel synd thang with diarrhea Start: 08-09-2024 End: 08-09-2024 Telephone encounter Eusebia Ibrahim [facility] Start: 08-09-2024 End: 08-09-2024 ambulatory SOHAIL DOVER [facility] Start: 08-04-2024 End: 08-04-2024 Telephone encounter Saray Rodriguez NP Work Phone: [facility] Start: 07-26-2024 End: 07-26-2024 Orders Only Shantanu Conroy RN 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 Start: 07-24-2024 End: 07-24-2024 ambulatory [facility] Facility:[facility] Start: 07-24-2024 Emergency department patient visit NELLY Flores RICHARDTORI [facility] Start: 07-24-2024 End: 07-29-2024 Evaluation and management of inpatient DEEJAY TEJEDA [facility] Start: 06-21-2024 End: 06-21-2024 Bamboo flowsheet José Manuel Grissom MD Work Phone: [facility] Start: 06-21-2024 End: 06-21-2024 Bamboo flowsheet José Manuel Grissom MD Work Phone: [facility] Start: 06-21-2024 End: 06-21-2024 Office outpatient visit 25 minutes José Manuel Grissom MD Work Phone: [facility] Comment on above: Benign essential hyp ertension (CMS/HCC) (Primary Dx); Irritable bowel syndrome with diarrhea; Primary osteoarthritis of both hips; 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); Dyslipidemia (CMS/HCC); Subclinical hypothyroidism (CMS/HCC); Encounter for long-term current use of medication Start: 06-21-2024 End: 06-21-2024 ambulatory JOSÉ MANUEL GRISSOM Not Available Start: 06-10-2024 End: 06-10-2024 Refill José Manuel Grissom MD Work Phone: [facility] Comment on above: Irritable bowel synd thang with diarrhea Start: 06-05-2024 End: 06-07-2024 Telephone encounter Marina Christopher LILIANA [facility] Comment on above: RX SENT TO [facility] (Pt left VM stating she is very upset. She said that her medication should have been sent to [facility]. Can you resend RX please? ) Start: 06-02-2024 End: 06-02-2024 Refill José Manuel Grissom MD Work Phone: [facility] Comment on above: Irritable bowel synd thang with diarrhea Start: 04-19-2024 End: 04-19-2024 ambulatory [facility] Start: 02-24-2024 End: 02-24-2024 ambulatory [facility] Start: 01-23-2024 End: 01-23-2024 [facility] Start: 01-20-2024 End: 01-20-2024 ambulatory SHAIKH JONATHAN Not Available Start: 01-16-2024 Evaluation and management of inpatient [facility] Start: 01-15-2024 End: 01-16-2024 Evaluation and management of inpatient [facility] Start: 01-15-2024 End: 01-15-2024 [facility] Start: 01-12-2024 End: 01-12-2024 ambulatory [facility] Start: 12-23-2023 End: 12-23-2023 ambulatory JOSÉ MANUEL GRISSOM Not Available Start: 07-02-2022 End: 07-03-[address] JOSÉ MANUEL GRISSOM Facility:[facility]1 Procedures Date Procedure Procedure Detail Performing Clinician Start: 10-25-2024 Radiologic examinati on pelvis 1/2 views Dario Paul [employer] OFFICER Work Phone: Start: 09-20-2024 Radiologic examinati on pelvis 1/2 views Dario Paul [employer] OFFICER Work Phone: Start: 08-23-2024 Radiologic examinati on pelvis 1/2 views Dario Paul [employer] OFFICER Work Phone: Start: 07-25-2024 Adult depression scr eening assessment Shantanu Conroy RN Plan of Treatment Date Care Activity Detail Author Start: 07-25-2025 Depression Screening Depression Screening [facility] Start: 07-25-2025 Tobacco Screening Tobacco Screening [facility] Start: 07-25-2025 End: 07-25-2025 Patient encounter procedure 07/25/2025 8:30 AM EST Office Visit [facility] [address] [place] [address] Gregoria Rodgers M, DO [address] [facility] [address] [place] [address] [facility] Start: 06-21-2025 Medicare Annual Wellness (AWV) Medicare Annual Wellness (AWV) [facility] Start: 12-20-2024 End: 12-20-2024 Patient encounter procedure 12/20/2024 1:00 PM EDT Office Visit [facility] [address] [place] [address] José Manuel Grissom MD [address] [place] [phone] [facility] Start: 12-13-2024 End: 12-13-2024 Patient encounter procedure 12/13/2024 2:45 PM EDT [facility] [address] [place] [phone] José Manuel Grissom MD [address] [place] [phone] [facility] Start: 10-25-2024 End: 10-25-2024 Patient encounter procedure 10/25/2024 1:30 PM EST Office Visit [facility] [address] [place] [phone] Dario Paul, [employer]AX RE[employer]UE OFFICER [address] [place], [place] [address] [facility] Start: 09-20-2024 End: 09-20-2024 [facility] Comment on above: Closed displaced fracture of pubis with routine healing, unspecified laterality, subsequent encounter Start: 08-23-2024 End: 08-23-2024 Patient encounter procedure 08/23/2024 1:00 PM EST Office Visit [facility] [address] [place] [phone] Dario Paul, [employer]AX RE[employer]UE OFFICER [address] [place], [place] [address] Closed displaced fracture of pubis with routine healing, unspecified laterality, subsequent encounter [facility] Comment on above: Closed displaced fracture of pubis with routine healing, unspecified laterality, subsequent encounter Start: 08-18-2024 End: 08-18-2024 Patient encounter procedure 08/18/2024 10:45 AM EST [facility] [address] [place] [address] José Manuel Grissom MD [address] [place] [address] [facility] Comment on above: Arrived Start: 08-09-2024 End: 08-09-2024 Patient encounter procedure 08/09/2024 2:00 PM EST Office Visit [facility] [address] [place] [phone] Barney Clifton MD [address] [place] [address] [facility]/Trauma and Adult Reconstruction Start: 07-26-2024 End: 07-26-2025 CTA Abdominal vessels and Pelvis vessels W contrast IV CT angiogram abdomen and pelvis Imaging Routine Iliac aneurysm (CMS-HCC) Expected: 07/26/2024, Expires: 07/26/2025 [facility] Work Phone: Comment on above: Expected: 07/26/2024, Expires: Start: 07-26-2024 End: 07-26-2025 XR Pelvis 3 Views X-ray pelvis minimum 3 views Imaging Routine Closed nondisplaced fracture of pelvis with routine healing, unspecified part of pelvis, subsequent encounter Expected: 07/26/2024, Expires: 07/26/2025 [employer] Work Phone: Comment on above: Expected: 07/26/2024, Expires: Start: 06-21-2024 End: 06-21-2025 Basic metabolic 1998 panel - Serum or Plasma Basic metabolic panel Lab Routine Benign essential hypertension (CMS/HCC) Expected: 06/21/2024 (Approximate), Expires: 06/21/2025 [facility] Work Phone: Comment on above: Expected: 06/21/2024 (Approximate), Expi res: 06/21/2025 Start: 06-21-2024 End: 06-21-2025 CBC W Auto Differential panel - Blood CBC and differential Lab Routine Encounter for long-term current use of medication Expected: 06/21/2024 (Approximate), Expires: 06/21/2025 [facility] Comment on above: Expected: 06/21/2024 (Approximate), Expi res: 06/21/2025 Start: 06-21-2024 End: 06-21-2025 Hepatic function 2000 panel - Serum or Plasma Hepatic function panel Lab Routine Encounter for long-term current use of medication Expected: 06/21/2024 (Approximate), Expires: 06/21/2025 [facility] Comment on above: Expected: 06/21/2024 (Approximate), Expi res: 06/21/2025 Start: 06-21-2024 End: 06-21-2025 Lipid 1996 panel - Serum or Plasma Lipid panel Lab Routine Dyslipidemia (CMS/HCC) Expected: 06/21/2024 (Approximate), Expires: 06/21/2025 [facility] Comment on above: Expected: 06/21/2024 (Approximate), Expi res: 06/21/2025 Start: 06-21-2024 End: 06-21-2025 Thyrotropin [Units/volume] in Serum or Plasma TSH Lab Routine Subclinical hypothyroidism (CMS/HCC) Expected: 06/21/2024 (Approximate), Expires: 06/21/2025 [facility] Comment on above: Expected: 06/21/2024 (Approximate), Expi res: 06/21/2025 Start: 06-21-2024 End: 06-21-2025 Thyroxine (T4) free [Mass/volume] in Serum or Plasma T4, free Lab Routine Subclinical hypothyroidism (CMS/HCC) Expected: 06/21/2024 (Approximate), Expires: 06/21/2025 [facility] Comment on above: Expected: 06/21/2024 (Approximate), Expi res: 06/21/2025 Start: 06-21-2024 End: 06-21-2025 Triiodothyronine (T3) Free [Mass/volume] in Serum or Plasma T3, free Lab Routine Subclinical hypothyroidism (CMS/HCC) Expected: 06/21/2024 (Approximate), Expires: 06/21/2025 [facility] Comment on above: Expected: 06/21/2024 (Approximate), Expi res: 06/21/2025 Start: 06-21-2024 End: 06-21-2024 Patient encounter procedure [facility] Comment on above: Arrived Start: 05-09-2024 Influenza vaccination Influenza Vaccine (#1) [facility] Start: 2005 Fall Risk Screening Fall Risk Screening [facility] Start: 1990 Administration of varicella zoster vaccine Zoster (Shingles) Vaccine (1 of 2) [facility] Start: 1959 DTaP,Tdap and Td Vaccines (1 - Tdap) DTaP,Tdap and Td Vaccines (1 - Tdap) [facility] Start: 1946 Pneumococcal Vaccine: 65+ Years (1 of 2 - PCV) Pneumococcal Vaccine: 65+ Years (1 of 2 - PCV) [facility] Start: 1940 Medicare Annual Wellness (AWV) Medicare Annual Wellness (AWV) [facility] Immunizations Immunization Date Immunization Notes Care Provider Fa genety 06-03-2024 Covid-19,mrna, Lnp-s , Pf, 50mcg/0.5ml 12+ Shantanu Conroy RN [facility] 06-03-2024 influenza, high dose seasonal, preservative-free Shantanu Conroy RN [facility] 06-03-2024 RSV, recombinant, protein subunit RSVpreF, adjuvant reconstituted, 0.5 mL, PF Shantanu Conroy RN [facility] 06-03-2024 influenza virus vaccine, unspecified formulation José Manuel Grissom MD Work Phone: [facility] 06-06-2023 Influenza, High-dose , Quadrivalent Shantanu Conroy RN [facility] 06-06-2023 influenza virus vaccine, unspecified formulation José Manuel Grissom MD Work Phone: [facility] 04-08-2022 Influenza Vaccine, Quadrivalent, Adjuvanted Shantanu Conroy RN [facility] 06-07-2021 influenza, seasonal, injectable Shantanu Conroy RN [facility] 05-17-2020 Influenza, High-dose , Quadrivalent Shantanu Conroy RN [facility] 06-18-2019 influenza, high dose seasonal, preservative-free Shantanu Conroy RN [facility] 07-13-2018 influenza, high dose seasonal, preservative-free Shantanu Conroy RN [facility] Payers Date Payer Category Payer Medicare HU[employer]NA MEDICARE ADVANTAGE HU[employer]NA MEDICARE [id number] 2017-Present [address] [address] [place] [address] [id number] 2017 Medicare (Managed Care) HUMANA M EDICARE ADVANTAGE [id number] 2017 Medicare HMO HU[employer]NA MEDICARE [id number] 1959 Medicare [id number] 1940 Unknown [id number] [id number]. 2.593 1940 Unknown [id number] 2.16840.1.041326.3.579. 2.732 1940 Unknown [id number] 2.16840.1.591636.3.579. 2.1286 1940 Unknown [id number] 2.16840.1.946109.3.579. 2.128 1940 Unknown [id number] 2.16840.1.956056.3.579. 2.128 1940 Unknown [id number] 2.16840.1.252929.3.579. 2.128 1940 Unknown [id number] 2.16.840.1.383196.3.579. 2.1286 1940 Unknown [id number] 2.16840.1.989126.3.579. 2.1259 1940 Unknown [id number] 2.16.840.1.717226.3.579. 2.9 1940 Unknown [id number] 2.16.840.1.719675.3.579. 2.1259 1940 Unknown [id number] 2.16.840.1.282546.3.579. 2.1258 1940 Unknown [id number] 2.16.840.1.127384.3.579. 2.1259 1940 Unknown [id number] 2.16.840.1.663489.3.579. 2.1258 1940 Unknown [id number] 2.16.840.1.049864.3.579. 2.1258 1940 Unknown [id number] 2.16.840.1.090936.3.579. 2.1258 1940 Unknown [id number] 2.16.840.1.206249.3.579. 2.1258 1940 Unknown [id number] 2.16.840.1.097901.3.579. 2.1259 Social History Date Type Detail Facility Start: 01-20-2024 End: 07-25-2024 Tobacco smoking status [facility] Ex-smoker [facility] History of tobacco use Current smoker [facility] History of tobacco use Cigarette Smoker [facility] History of tobacco use Passive smoker [facility] Start: 01-20-2024 End: 07-25-2024 Tobacco use and exposure Smokeless tobacco non-user [facility] Start: 01-20-2024 End: 10-25-2024 Alcoholic beverage intake Current drinker of alcohol (finding) [facility] Start: 01-20-2024 End: 10-25-2024 History of Social function [facility] Start: 01-20-2024 End: 10-25-2024 Tobacco use panel [facility] Start: 01-20-2024 Alcohol Comment OCCASSIONAL [facility] Start: 1940 Sex assigned at Not on file [facility] Has the electric, [employer], [employer], or water company threatened to shut off services in your home in past 12Mo No [facility] [employer] How often to you hav e a drink containing alcohol? Monthly or less [facility] How many standard drinks containing alcohol do you have on a typical day? 1 or 2 [facility] [employer] How often do you hav e 6 or more drinks on 1 occasion? Never [facility] Adolescent depressio n screening assessment 0 [facility] Start: 04-13-2015 Sex Female (finding) [facility] Goals Date Patient Goal Desired Activity /State Personal health goal Comment on above: Formatting of this n ote might be different from the original. Evaluation of progress towards goal: Progress to a safe discharge Mental Status Date Assessment Result Facility [facility] [employer] [facility] Clinical Notes 01-12-2024 to 11-09-2024 Dario Paul NP - 10/25/2024 1:30 PM Yassine Paul NP - 09/20/2024 1:00 PM Yassine Paul NP - 08/23/2024 1:00 PM Brittany Grissom MD - 08/18/2024 11:19 AM EST Note Date & Type Note Facility 11-09-2024 Note [facility] Cardiology Clinic Note Chief Complaint: Patient here for 6 mo follow up chest pain, CAD, and AV block s/p PPM placement in January [address] Edmonds. Says she's had palpitations across her chest ever since device interrogation on 10/05/2024. Denies chest pain and SOB. HPI: Larry Handy is a 84 y.o. female With a history of mild coronary artery disease, recent pacemaker placement here in routine follow-up Feels much better after pacemaker placement; no significant lightheadedness, dizziness, syncope Still has intermittent chest heaviness with exertion. Lasts for seconds or minutes and resolves. No orthopnea, no paroxysmal external dyspnea, no lower extremity edema UPDATE 11/09/2024 Doing well; denies chest pain. Clarifies that she has a sensation of her heart beat every so often. It is not associated with pain per se. She did not want to have the stress test as she was concerned it would cause problems with her IBS and morning bowel motions. No new cardiovascular symptoms. Cardiology ROS: Review of Systems Constitutional: Positive for malaise/fatigue. Cardiovascular: Positive for palpitations. Musculoskeletal: Positive for arthritis and joint pain. All other systems reviewed and are negative. Past Medical History She has a past medical history of Abnormal ECG, Coronary artery disease, Hyperlipidemia, and Hypertension. Surgical History She has a past surgical history that includes Cardiac catheterization and Total hip arthroplasty. Social History She reports that she quit smoking about 40 years ago. Her smoking use included cigarettes. [...] , Rfl: atorvastatin (Lipitor) 20 mg tablet, TAKE 1 TABLET AT BEDTIME, Disp: 90 tablet, Rfl: 3 isosorbide mononitrate ER (Imdur) 60 mg 24 hr tablet, Take 1 tablet (60 mg) by mouth once daily as directed., Disp: 90 tablet, Rfl: 3 metoprolol succinate XL (Toprol-XL) 50 mg 24 hr tablet, Take 1 tablet (50 mg) by mouth in the morning. Do not crush or chew. (Patient taking differently: Take 25 mg by mouth in the morning. Do not crush or chew.), Disp: 90 tablet, Rfl: 3 Viberzi 100 mg tablet, Take 100 mg by mouth in the morning., Disp: , Rfl: Last Recorded Vitals BP 126/60 (BP Location: Left arm, Patient Position: Sitting) Pulse 85 Ht 1.626 m (5' 4 ) Wt 54.9 kg (121 lb) SpO2 93% BMI 20.77 kg/m??? Physical Examination: GENERAL: alert and oriented [...] HDL 72, LDL 68 12-lead EKG 08/12/2022 (more content not included)... [facility] 10-25-2024 History of Present illness Narrative Images from the original note were not included. HISTORY OF PRESENT ILLNESS: EST PT Larry Handy is an 84 y.o. @ female. (EST PT) - RECHECK PUBIS FX 07/24/24 (3 MONTHS, 2 DAYS) XRAY PELVIS TODAY, 10/25/24 IN EPIC XRAY PELVIS 09/20/24, 08/23/24 IN EPIC XRAY PELVIS 07/24/24 @[facility] PT FINISHED HOME PT. MILD PAIN IN GROIN TODAY, NOTES SOME DAYS ARE WORSE THAN OTHERS. WALKING WITH A CANE. OCCAS PAIN DOWN LT LEG. DOES NOT WAKE AT HS. LUI: On 07/24/24 patient was walking at home and tripped. Fell and developed severe pain in pelvis and groin. Not able to walk or stand and taken to [facility], had CT. Transferred to [facility] and seen by ortho and vascular. Both stated not surgical and started PT. Transferred to [facility] 07/29. Discharged home and is doing PT. Referred by Dr Grissom. ALLERGIES: No Known Allergies HOME MEDICATIONS: Current Outpatient Medications Medication Instructions aspirin 81 mg, Daily RT atorvastatin (LIPITOR) 20 mg, Nightly gabapentin (NEURONTIN) 300 mg, 3 times daily isosorbide mononitrate ER (IMDUR) 60 mg, Every morning metoprolol succinate XL (TOPROL-XL) 25 mg, Daily Multiple Vitamin (multivitamin) tablet 1 tablet, Daily Viberzi 100 mg, Oral, 2 times daily PHYSICAL EXAM: Right Hip Exam Tenderness The patient is experiencing no tenderness. Muscle Strength Abduction: 5/5 Adduction: 5/5 Flexion: 5/5 Other Pulse: present Comments: Ambulating with cane Left Hip Exam Tenderness The patient is experiencing tenderness in the anterior. Range of Motion External rotation: 40 Internal rotation: 15 (pain with testing) Muscle Strength Abduction: 5/5 Adduction: 5/5 Flexion: 5/5 Other Pulse: present Comments: Ambulating with cane Vitals: There is no height or weight on file to calculate BMI. Tobacco Use: Medium Risk (10/25/2024) Patient History Smoking Tobacco Use: Former Smokeless Tobacco Use: Never Passive Exposure: Past Alcohol Use: Not At Risk (07/25/2024) Received from [facility] [employer] AUD[employer]-C Frequency of Alcohol Consumption: Monthly or less Average Number of Drinks: 1 or 2 Frequency of Binge Drinking: Never IMAGING: XR pelvis 1 or 2 views Imaging Result: 10/26/2024: AP pelvis demonstrates healing bilateral pubic rami fractures with increased callus formation when compared to previous xray on 09/20/2024 in acceptable alignment with no signs of displacement. Stable right ALMA and severe left osteoarthritis of the left hip noted. No other acute findings noted. Impression: Healing bilateral pubic rami fracture. Stable RT ALMA. Severe LT hip osteoarthritis. Dario Paul CHAPLAIN RESIDENT-EXPLOSIVE TECHNICIAN Procedures Orders Placed This Encounter Procedures XR pelvis 1 or 2 views Order Specific Question: Reason for exam: Answer: fx ASSESSMENT: ICD-10-CM 1. Closed displaced fracture of pubis with routine healing, unspecified laterality, subsequent encounter S32.509D XR pelvis 1 or 2 views 2. Acute pain of both hips M25.551 M25.552 PLAN: I reviewed xray findings with patient which showed healing bilateral pubic rami fractures. She states her pain has improved and is ambulating with cane. I educated patient that her left hip has severe OA and that she will likely continue to have some anterior hip pain related to this. Patient verbalized understanding but would like to hold off on any additional treatment at this time.I recommend tylenol for any breakthrough pain. She will follow up as needed. Questions answered in laymen terms at the bedside. The diagnosis, home exercise plan and any ongoing restrictions/ recommendations reviewed. If unable to be reached in office, I recommend evaluation at nearest Emergency Room if any symptoms worsened or new symptoms develop for requiring urgent evaluation. documented in this encounter [facility] 09-20-2024 History of Present illness Narrative Images from the original note were not included. HISTORY OF PRESENT ILLNESS: EST PT Larry Handy is an 84 y.o. @ female. EST PT, RECHECK PUBIS FX 07/24/24 (8WKS 2DAYS) DR GRISSOM REFERRAL XRAY PELVIS TODAY 09/20/24 EPIC XRAY PELVIS 08/23/24 EPIC XRAY PELVIS 07/24/24 [facility] PT NOW NOTES NO LONGER USING WALKER REGULARLY, AMBULATES WITH CANE AT HOME X 1 WK. NOTES PUBIC PAIN THAT RADIATED TO LT KNEE WHILE SITTING 1 DAY AGO FOR THE FIRST TIME. DENIES LBP. NOTES DISCOMFORT WITH HOME PT. DENIES PAIN WHEN AMBULATING. NOTES IBU PRN. LUI: On 07/24/24 patient was walking at home and tripped. Fell and developed severe pain in pelvis and groin. Not able to walk or stand and taken to [facility], had CT. Transferred to [facility] and seen by ortho and vascular. Both stated not surgical and started PT. Transferred to [facility] 07/29. Discharged home and is doing PT. Referred by Dr Grissom. ALLERGIES: No Known Allergies HOME MEDICATIONS: Current Outpatient Medications Medication Instructions aspirin 81 mg, Daily RT atorvastatin (LIPITOR) 20 mg, Nightly gabapentin (NEURONTIN) 300 mg, 3 times daily isosorbide mononitrate ER (IMDUR) 60 mg, Every morning metoprolol succinate XL (TOPROL-XL) 25 mg, Daily Multiple Vitamin (multivitamin) tablet 1 tablet, Daily Viberzi 100 mg, Oral, 2 times daily PHYSICAL EXAM: Right Hip Exam Tenderness The patient is experiencing no tenderness. Muscle Strength Abduction: 4/5 Adduction: 4/5 Flexion: 4/5 Other Pulse: present Comments: Ambulating with walker Left Hip Exam Tenderness The patient is experiencing tenderness in the anterior. Range of Motion External rotation: 40 Internal rotation: 15 (pain with testing) Muscle Strength Abduction: 4/5 Adduction: 4/5 Flexion: 4/5 Other Pulse: present Comments: Ambulating with walker Vitals: There is no height or weight on file to calculate BMI. Tobacco Use: Medium Risk (08/18/2024) Patient History Smoking Tobacco Use: Former Smokeless Tobacco Use: Never Passive Exposure: Past Alcohol Use: Not At Risk (07/25/2024) Received from [facility] Frequency of Alcohol Consumption: Monthly or less Average Number of Drinks: 1 or 2 Frequency of Binge Drinking: Never IMAGING: XR pelvis 1 or 2 views Imaging Result: 09/20/2024: AP pelvis demonstrates healing bilateral pubic rami fractures in acceptable alignment with no signs of displacement. Stable right ALMA and severe left osteoarthritis of the left hip noted. No other acute findings noted. Impression: Healing bilateral pubic rami fracture. Stable RT ALMA. Severe LT hip osteoarthritis. Dario Paul CHAPLAIN RESIDENT-EXPLOSIVE TECHNICIAN Procedures Orders Placed This Encounter Procedures XR pelvis 1 or 2 views Order Specific Question: Reason for exam: Answer: pain ASSESSMENT: ICD-10-CM 1. Closed displaced fracture of pubis with routine healing, unspecified laterality, subsequent encounter S32.509D 2. Acute pain of both hips M25.551 XR pelvis 1 or 2 views M25.552 PLAN: I reviewed xray findings with patient which showed healing pubic rami fractures. She is doing ok with some left anterior hip pain. She is also noted to have severe LT hip arthritis and I educated patient that this could also be causing some of her pain. She will continue to work with home PT 1x a week for ambulation. Recommend tylenol for pain. Follow up in 1 month for RCK and xray. Questions answered in laymen terms at the bedside. The diagnosis, home exercise plan and any ongoing restrictions/ recommendations reviewed. If unable to be reached in office, I recommend evaluation at nearest Emergency Room if any symptoms worsened or new symptoms develop for requiring urgent evaluation. Dario Paul CHAPLAIN RESIDENT-EXPLOSIVE TECHNICIAN documented in this encounter [facility] 08-23-2024 History of Present illness Narrative Images from the original note were not included. NAME: Larry Handy : 1940 HISTORY OF PRESENT ILLNESS: NEW PT Larry Handy is an 84 y.o. @ female. NEW PT (DR GRISSOM REFERRAL) WITH PELVIS INJURY 07/24/24 (4WKS 2DAYS) DR GRISSOM REFERRAL XRAY PELVIS 07/24/24 [place] On 07/24/24 patient was walking at home and tripped. Fell and developed severe pain in pelvis and groin. Not able to walk or stand and taken to [place] [facility], had CT. Transferred to [facility] and seen by ortho and vascular. Both stated not surgical and started PT. Transferred to [facility] 07/29. Discharged home and is doing PT. Referred here by Dr Grissom. Walking with walker today. Denies pain in hips, admits LBP since the fall. Pain is tolerable. Uses IBU PRN. Discomfort after PT and walking. Here with her son PAST MEDICAL HISTORY: No past medical history on file. PAST SURGICAL HISTORY: Past Surgical History: Procedure Laterality Date CT ANGIOGRAM ABDOMEN PELVIS 07/24/2024 CT ANGIOGRAM ABDOMEN PELVIS 07/24/2024 SOCIAL HISTORY: Social History Occupational History Not on file Tobacco Use Smoking status: Former Types: Cigarettes Passive exposure: Past Smokeless tobacco: Never Vaping Use Vaping status: Never Used Substance and Sexual Activity Alcohol use: Yes Comment: OCCASSIONAL Drug use: Never Sexual activity: Defer ALLERGIES: No Known Allergies HOME MEDICATIONS: Current Outpatient Medications Medication Instructions aspirin 81 mg, Daily RT atorvastatin (LIPITOR) 20 mg, Nightly gabapentin (NEURONTIN) 300 mg, 3 times daily isosorbide mononitrate ER (IMDUR) 60 mg, Every morning metoprolol succinate XL (TOPROL-XL) 25 mg, Daily Multiple Vitamin (multivitamin) tablet 1 tablet, Daily Viberzi 100 mg, Oral, 2 times daily Vitals: There is no height or weight on file to calculate BMI. Tobacco Use: Medium Risk (08/18/2024) Patient History Smoking Tobacco Use: Former Smokeless Tobacco Use: Never Passive Exposure: Past Alcohol Use: Not At Risk (07/25/2024) Received from [facility] Frequency of Alcohol Consumption: Monthly or less Average Number of Drinks: 1 or 2 Frequency of Binge Drinking: Never PHYSICAL EXAM: Right Hip Exam Tenderness The patient is experiencing no tenderness. Muscle Strength Abduction: 4/5 Adduction: 4/5 Flexion: 4/5 Other Pulse: present Comments: ROM not stressed due to fracture Ambulating with walker Left Hip Exam Tenderness The patient is experiencing no tenderness. Muscle Strength Abduction: 4/5 Adduction: 4/5 Flexion: 4/5 Other Pulse: present Comments: ROM not stressed due to fracture Ambulating with walker IMAGING: XR pelvis 1 or 2 views Imaging Result: 08/23/2024: AP pelvis demonstrates healing bilateral pubic rami fractures in acceptable alignment with no signs of displacement. Stable right ALMA and severe left osteoarthritis of the left hip noted. No other acute findings noted. Impression: healing bilateral pubic rami fracture with stable RT ALMA and severe LT hip osteoarthritis. Dario Paul CHAPLAIN RESIDENT-EXPLOSIVE TECHNICIAN Procedures Orders Placed This Encounter Procedures XR pelvis 1 or 2 views Order Specific Question: Reason for exam: Answer: PAIN ASSESSMENT: ICD-10-CM 1. Closed displaced fracture of pubis with routine healing, unspecified laterality, subsequent encounter S32.509D Ambulatory referral to Orthopaedic Surgery XR pelvis 1 or 2 views 2. Acute pain of both hips M25.551 M25.552 PLAN: I reviewed xray and CT findings from [facility] and xray from today with the patient and discussed treatment options, answered questions. I recommend that she continue using walker and avoid high impact activity. She will follow up in 4 weeks for RCK and xray. Questions answered in laymen terms at the bedside. The diagnosis, home exercise plan and any ongoing restrictions/ recommendations reviewed. If unable to be reached in office, I recommend evaluation at nearest Emergency Room if any symptoms worsened or new symptoms develop for requiring urgent evaluation. Dario Paul CHAPLAIN RESIDENT-EXPLOSIVE TECHNICIAN documented in this encounter [facility] 08-18-2024 History of Present illness Narrative Associated Problem(s): Closed displaced fracture of pelvis (CMS/HCC) Pain tolerable and continue PT. Use OTC PRN. If pain worsens can add ultram. Refer to ortho for monitoring and repeat imaging in future. Images from the original note were not included. Subjective Patient ID: Larry Handy is a 84 y.o. female who presents for Follow-up (Hospital f/u). Follow up from hospital 07/24-07/29 and [facility] 07/29-08/07 after pubic rami fractures and pelvic hematoma. Patient was walking at home and tripped. Fell and developed severe pain in pelvis and groin. Not able to walk or stand and taken to ER. CT showed bilateral minimally displaced pubic rami fractures and pelvic hematoma. Transferred to [facility] and seen by ortho and vascular. Both stated not surgical and started PT. Transferred to [facility] 07/29 and did well. Discharged home and has started home PT. Pain tolerable with medication. Uses motrin or tylenol PRN. Told to follow up with ortho and requests referral to local ortho. Review of Systems Respiratory: Negative for cough, [...] Assessment/Plan Problem List Items Addressed This Visit Closed displaced fracture of pelvis (CMS/HCC) - Primary Pain tolerable and continue PT. Use OTC PRN. If pain worsens can add ultram. Refer to ortho for monitoring and repeat imaging in future. Relevant Orders Ambulatory referral to Orthopaedic Surgery documented in this encounter [facility] 08-09-2024 Miscellaneous Notes Patient called in and had to cancel her scheduled 08/09 appointment stated that she does not have transportation since leaving the care facility patient would like to know if there are any alternative options or if theres a provider who may be closer confirmed [phone] as a good callback number [facility] called back to follow up on previous request. Informed patient admitting representative that we don't know who takes patient's insurance so it is their responsibility to contact patient's insurance and find an orthopod within network. They asked if anyone from our office goes to [place] - advised we only have privileges in [facility] and clinic at [facility]. Google searched orthopods at [facility] and found Javier... gave the caller both numbers. documented in this encounter [facility] 08-09-2024 Telephone encounter Note Patient called in and had to cancel her scheduled 08/09 appointment stated that she does not have transportation since leaving the care facility patient would like to know if there are any alternative options or if theres a provider who may be closer confirmed [phone] as a good callback number [facility] 08-09-2024 Telephone encounter Note [facility] called back to follow up on previous request. Informed patient admitting representative that we don't know who takes patient's insurance so it is their responsibility to contact patient's insurance and find an orthopod within network. They asked if anyone from our office goes to [place] - advised we only have privileges in [facility] and clinic at [facility]. Google searched orthopods at [facility] and found [facility] and Wily... gave the caller both numbers. [facility] 08-04-2024 Telephone encounter Note Rx for veberzi is sent for this [facility] patient, # 60 with 0 refills. [facility] 08-04-2024 Miscellaneous Notes Rx for veberzi is sent for this [facility] patient, # 60 with 0 refills. documented in this encounter [facility] 06-21-2024 History of Present illness Narrative Associated Problem(s): Primary osteoarthritis of both hips Occasional pain and stiffness but tolerable. Use OTC PRN. Increase activity and walking. Associated Problem(s): Irritable bowel syndrome with diarrhea Symptoms controlled with viberzi and continue. 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 Associated Problem(s): Benign essential hypertension (CMS/HCC) BP controlled and monitor PRN. Images from the original note were not included. Subjective Patient ID: Larry Handy is a 83 y.o. 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 Denies palpitations and lightheadedness. HPI: Larry Handy is a 83 y.o. female With [...] PHYSICIAN: Dr. Oli Edmonds CONSENT: Patient LOCATION: Lab PROCEDURE PERFORMED: 1. Implantation of pacemaker [...] Mild tricuspid regurgitation. (more content not included)... [facility] 01-23-2024 Note [facility] Note Reason for follow-up: Site check following device placement HPI: Larry Handy is a 83 y.o. female with [...] complaints at this time. Rohan Miranda MD [facility] 01-16-2024 Note 01/16/24 1021 Admission Assessment [...] time of Discharge? No ([facility] [place]) Does the patient have a outpatient case manager assigned to them through their insurance? No Living Arrangement (Current/Prior to Hospitalization) Private residence;Home self care (lives alone. 2 story home w/bed and bath on first floor. Laundry in basement.) Does the patient have history of HHC or SNF? Yes ([facility] in [place] after hip surgery) Assistive Device Cane Patient's [...] to send link and activate MyChart? Yes [facility] 01-15-2024 Note [facility] ER [...] using modified seldinger technique using a 5 Liberian micro-puncture needle on two occasions and 0.35 [...] for the device above the muscle. 6 [place]ian Safesheaths were placed over the wire. An active fixation Biotronik pacing lead was then delivered through the 6Fsheath tothe right ventricle. After confirmation of lead position on orthogonal views (WREN and HUNGARIAN) to confirm septal position, the screw was [...] lead position on orthogonal views (WREN and HUNGARIAN), the screw was activated. Good sensing parameters, [...] 2 weeks Oli Edmonds MD Cardiac Electrophysiology [facility] 01-15-2024 Note Patient: Larry Handy Procedure Information Date/Time: 01/15/24 1600 Procedure: Implant PPM - URGENT per Dr. Morales and Dr. Edmonds Location: [facility] DIRECTOR BUSINESS INTELLIGENCE 1 / [facility] VASCULAR [facility] (Cath) Providers: Oli Edmonds MD Clinical information reviewed: Tobacco Allergies Meds Med Hx Surg Hx Fam Hx Physical Exam Airway Mallampati: II TM distance: >3 FB Neck ROM: full Cardiovascular Dental Pulmonary Abdominal Anesthesia Plan ASA 2 CSE Anesthetic plan and risks discussed with patient. Use of blood products discussed with patient who. Additional Equipment Requests [facility] 01-15-2024 Note [facility] Note Reason for cardiology consult: [facility] 01-15-2024 Note [facility] Note Reason for follow-up: Symptomatic bradycardia Chief Complaint: Chest pain, palpitation, dizziness HPI: Larry Handy is a 83 y.o. female who [...] the patient was in the office with bridal consultant Dr. Edmonds and we will arrange for [...] with ventricular es (more content not included)... [facility] 01-12-2024 Note [facility] Cardiology Clinic Note Chief Complaint: Patient here [...] when she checks it at home. HPI: Larry Handy is a 83 y.o. female with [...] monitor or soone (more content not included)... 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 Benign essential hypertension (CMS/HCC) Essential hypertension, benign Hospital discharge follow-up Other follow-up examination Benign essential hypertension (CMS/HCC)- Primary Essential hypertension, benign Irritable bowel syndrome with diarrhea Irritable bowel syndrome Primary osteoarthritis of both hips 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) Dyslipidemia (CMS/HCC) Other and unspecified hyperlipidemia Subclinical hypothyroidism (CMS/HCC) Other specified acquired hypothyroidism Encounter for long-term current use of medication documented in this encounter [facility]* Diagnosis Benign essential hypertension (CMS/HCC)- Primary Essential hypertension, benign Irritable bowel syndrome with diarrhea Irritable bowel syndrome Primary osteoarthritis of both hips 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) Onychomycosis 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- Primary Second degree AV block Other second degree atrioventricular block Benign essential hypertension (CMS/HCC) Essential hypertension, benign Hospital discharge follow-up Other follow-up examination Benign essential hypertension (CMS/HCC)- Primary Essential hypertension, benign Irritable bowel syndrome with diarrhea Irritable bowel syndrome Primary osteoarthritis of both hips 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) Dyslipidemia (CMS/HCC) Other and unspecified hyperlipidemia Subclinical hypothyroidism (CMS/HCC) Other specified acquired hypothyroidism Encounter for long-term current use of medication Irritable bowel syndrome with diarrhea- Primary Irritable bowel syndrome documented in this encounter [facility]* Diagnosis Benign essential hypertension (CMS/HCC)- Primary Essential hypertension, benign Irritable bowel syndrome with diarrhea Irritable bowel syndrome Primary osteoarthritis of both hips 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) Onychomycosis 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- Primary Second degree AV block Other second degree atrioventricular block Benign essential hypertension (CMS/HCC) Essential hypertension, benign Hospital discharge follow-up Other follow-up examination Benign essential hypertension (CMS/HCC)- Primary Essential hypertension, benign Irritable bowel syndrome with diarrhea Irritable bowel syndrome Primary osteoarthritis of both hips 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) Dyslipidemia (CMS/HCC) Other and unspecified hyperlipidemia Subclinical hypothyroidism (CMS/HCC) Other specified acquired hypothyroidism Encounter for long-term current use of medication Closed displaced fracture of pubis with routine healing, unspecified laterality, subsequent encounter- Primary documented in this encounter [facility]* Diagnosis Benign essential hypertension (CMS/HCC)- Primary Essential hypertension, benign Irritable bowel syndrome with diarrhea Irritable bowel syndrome Primary osteoarthritis of both hips 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) Onychomycosis 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- Primary Second degree AV block Other second degree atrioventricular block Benign essential hypertension (CMS/HCC) Essential hypertension, benign Hospital discharge follow-up Other follow-up examination Benign essential hypertension (CMS/HCC)- Primary Essential hypertension, benign Irritable bowel syndrome with diarrhea Irritable bowel syndrome Primary osteoarthritis of both hips 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) Dyslipidemia (CMS/[facility]) Other and unspecified hyperlipidemia Subclinical hypothyroidism ([facility]) Other specified acquired hypothyroidism Encounter for long-term current use of medication Closed displaced fracture of pubis with routine healing, unspecified laterality, subsequent encounter- Primary Irritable bowel syndrome with diarrhea Irritable bowel syndrome documented in this encounter [facility]* Diagnosis Benign essential hypertension (CMS/HCC)- Primary Essential hypertension, benign Irritable bowel syndrome with diarrhea Irritable bowel syndrome Primary osteoarthritis of both hips 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) Onychomycosis 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- Primary Second degree AV block Other second degree atrioventricular block Benign essential hypertension (CMS/HCC) Essential hypertension, benign Hospital discharge follow-up Other follow-up examination Benign essential hypertension (CMS/HCC)- Primary Essential hypertension, benign Irritable bowel syndrome with diarrhea Irritable bowel syndrome Primary osteoarthritis of both hips CAD in [place] artery ([facility]) Dyslipidemia ([facility]/HCC) Other and unspecified hyperlipidemia Subclinical hypothyroidism ([facility]) Other specified acquired hypothyroidism Encounter for long-term current use of medication Closed displaced fracture of pubis with routine healing, unspecified laterality, subsequent encounter- Primary Closed displaced fracture of pubis with routine healing, unspecified laterality, subsequent encounter- Primary Acute pain of both hips Primary osteoarthritis of left hip documented in this encounter [facility]* Diagnosis Irritable bowel syndrome with diarrhea Irritable bowel syndrome documented in this encounter [facility]* Diagnosis Benign essential hypertension ([facility]/HCC)- Primary Essential hypertension, benign Irritable bowel syndrome with diarrhea Irritable bowel syndrome Primary osteoarthritis of both hips CAD in [place] artery ([facility]) Onychomycosis 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- Primary Second degree AV block Other second degree atrioventricular block Benign essential hypertension ([facility]) Essential hypertension, benign Hospital discharge follow-up Other follow-up examination Benign essential hypertension ([facility])- Primary Essential hypertension, benign Irritable bowel syndrome with diarrhea Irritable bowel syndrome Primary osteoarthritis of both hips CAD in [place] artery ([facility]) Dyslipidemia ([facility]) Other and unspecified hyperlipidemia Subclinical hypothyroidism ([facility]) Other specified acquired hypothyroidism Encounter for long-term current use of medication Closed displaced fracture of pubis with routine healing, unspecified laterality, subsequent encounter- Primary Closed displaced fracture of pubis with routine healing, unspecified laterality, subsequent encounter Acute pain of both hips documented in this encounter [facility]* Diagnosis Closed displaced fracture of pelvis, unspecified part of pelvis, initial encounter ([facility])- Primary Closed nondisplaced fracture of pelvis with routine healing, unspecified part of pelvis, subsequent encounter [facility] Diagnosis Iliac aneurysm ([facility])- Primary Aneurysm of iliac artery [facility] Diagnosis Benign essential hypertension ([facility])- Primary Essential hypertension, benign Irritable bowel syndrome with diarrhea Irritable bowel syndrome Primary osteoarthritis of both hips CAD in [place] artery ([facility]) Onychomycosis 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- Primary Second degree AV block Other second degree atrioventricular block Benign essential hypertension (CMS/HCC) Essential hypertension, benign Hospital discharge follow-up Other follow-up examination Benign essential hypertension (CMS/HCC)- Primary Essential hypertension, benign Irritable bowel syndrome with diarrhea Irritable bowel syndrome Primary osteoarthritis of both hips 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) Dyslipidemia (CMS/HCC) Other and unspecified hyperlipidemia Subclinical hypothyroidism (CMS/HCC) Other specified acquired hypothyroidism Encounter for long-term current use of medication Closed displaced fracture of pubis with routine healing, unspecified laterality, subsequent encounter- Primary Closed displaced fracture of pubis with routine healing, unspecified laterality, subsequent encounter- Primary Acute pain of both hips documented in this encounter [facility] HealthcareInstructionsNot on filedocumented in this encounterProMercy [facility] SystemInstructionsNot on filedocumented in this encounterProMercy Health St[facility] System Summary Purpose Family History No Family History Records FoundNo Family History Records FoundNo Family History Records FoundNo Family History Records FoundNo Family History Records FoundNo Family History Records Found Advance Directives No Advanced Directives Records Found Date Activated Date Inactivated Comments 07/24/2024 7:22 PM Date Activated Date Inactivated Comments 07/24/2024 7:22 PM Date Activated Date Inactivated Comments 07/24/2024 7:22 PM 07/29/2024 6:24 PM Additional Source Comments INFORMATION SOURCE (unrecogn ized section and content) DATE CREATED AUTHOR 07/07/2022 [facility] DATE CREATED AUTHOR AUTHOR'S ORGANIZ ATION 07/27/2024 [facility] DATE CREATED AUTHOR AUTHOR'S ORGANIZ ATION 08/02/2024 [facility] DATE CREATED AUTHOR AUTHOR'S ORGANIZ ATION 08/09/2024 [facility] DATE CREATED AUTHOR AUTHOR'S ORGANIZ ATION 10/31/2024 [facility] DATE CREATED AUTHOR AUTHOR'S ORGANIZ ATION 11/11/2024 [facility] Reason for Visit (unrecogniz ed section and content) Reason Onset Date Comments Med Refill 06/10/2024 Reason Comments Follow-up 6 m Reason Comments Follow-up Hospital f/u Reason Onset Date Comments Med Refill 08/18/2024 Reason Comments Pain Specialty Diagnoses / Procedures Referred By Megan meade Referred To Contact Orthopaedic Surgery Diagnoses Closed displaced fracture of pubis with routine healing, unspecified laterality, subsequent encounter José Manuel Grissom MD [address] [place] [address] Phone: tel: fax: Jr. David Ramirez, DO [address] [place] [address] Phone: tel: fax: Referral ID Status Reason Start Date Expiration Date V isits Requested Visits Authorized [id number] Closed Specialty Services Required 08/18/2024 02/14/2025 1 1 Reason Onset Date Comments Med Refill 06/02/2024 Reason Onset Date Comments RX SENT TO WRONG PHARMACY 06/05/2024 Pt bambi SCHAFER stating she is very upset. She said that her medication should have [facility]. Can you resend RX please? Reason Comments Follow-up Care Teams (unrecognized sec tion and content) Black Pickler Relationship Specialty Start Date End Date José Manuel Grissom MD [address] [place] [phone] PCP - General Family Medicine 12/23/23 Black Pickler Relationship Specialty Start Date End Date José Manuel Grissom MD [address] [place] [address] PCP - General Family Medicine 12/23/23 Black Pickler Relationship Specialty Start Date End Date José Manuel Grissom MD [address] [place] [address] PCP - General Family Medicine 12/23/23 Black Pickler Relationship Specialty Start Date End Date José Manuel Grissom MD [address] [place] [address] PCP - General Family Medicine 12/23/23 Black Pickler Relationship Specialty Start Date End Date José Manuel Grissom MD [address] [place] [address] PCP - General Family Medicine 12/23/23 Black Pickler Relationship Specialty Start Date End Date José Manuel Grissom MD [address] [place] [address] PCP - General Family Medicine 12/23/23 Black Pickler Relationship Specialty Start Date End Date José Manuel Grissom MD [address] [place] [address] PCP - General Family Medicine 12/23/23 Black Pickler Relationship Specialty Start Date End Date José Manuel Grissom MD [address] [place] [address] PCP - General Family Medicine 12/23/23 Black Pickler Relationship Specialty Start Date End Date José Manuel Grissom MD [address] [place] [address] PCP - General Family Medicine 12/23/23 Black Pickler Relationship Specialty Start Date End Date José Manuel Grissom MD [address] [place] [address] PCP - General Family Medicine 12/23/23 Black Pickler Relationship Specialty Start Date End Date José Manuel Grissom MD [address] [place] [address] PCP - General Family Medicine 12/23/23 Black Pickler Relationship Specialty Start Date End Date José Manuel Grissom MD [address] [place] [address] PCP - General Family Medicine 12/23/23 Black Pickler Relationship Specialty Start Date End Date José Manuel Grissom MD [address] [place] [phone] PCP - General Family Medicine 12/23/23 FOR [...] BE BASED ON THE PRIMARY CLINICAL RECORDS. [facility]. provides no warranty or guarantee of the accuracy or completeness of information in this document.
[2024-11-15 09:48] LABS: Free T4 1.07 ng/dL (0.76-1.46)
[2024-11-15 10:02] LABS: Alanine Aminotransferase 15 U/L (14-59); Albumin Globulin Ratio 1.1; Albumin Level 3.5 g/dL (3.4-5.0); Alkaline Phosphatase 82 U/L (46-116); Anion Gap 11.6; Aspartate Amino Transferase 21 U/L (15-37); BUN Creatinine Ratio 14.1; Bilirubin Direct 0.1 mg/dL (0.0-0.2); Bilirubin Total 0.5 mg/dL (0.2-1.0); Calcium 9.1 mg/dL (8.5-10.1); Carbon Dioxide 31.6 mmol/L (21.0-32.0); Chloride 106 mmol/L (98-107); Chol HDL Ratio 1.8; Cholesterol 143 mg/dL (<=200); Estimated GFR (African America >60 (>=60 mL/min/1.73m^2); Estimated GFR (Non-African Ame >60 (>=60 mL/min/1.73m^2); Free T3 2.43 pg/mL (2.18-3.98); Globulin 3.3 g/dL; Glucose 102 mg/dL (74-106); HDL Cholesterol 81 mg/dL (40-60); Potassium 4.2 mmol/L (3.5-5.1); Sodium 145 mmol/L (136-145); Thyroid Stimulating Hormone 3.021 uIU/mL (0.358-3.740); Total Protein 6.8 g/dL (6.4-8.2); Triglycerides 48 mg/dL (<=150); VLDL CHOLESTEROL 9.6 mg/dL
== END 2024-11-15 08:08 | disposition home or self-care (01) ==
LOC: LAB 08:09
PROVIDERS: PCP Family Medicine; Visit Provider Family Medicine
DX: I10 Essential (primary) hypertension (principal); Z79.899 Other long term (current) drug therapy; E78.5 Hyperlipidemia, unspecified; E03.8 Other specified hypothyroidism
CPT/HCPCS: 36415; 80048; 80061; 80076; 84439; 84443; 84481; 85025

== ENCOUNTER 2025-06-09 12:52 | Outpatient (OUT) | payer MEDICARE, SELFPAY ==
--- OUTSIDE RECORDS SUMMARY | 2025-05-30 11:15 | XMS_ITS | Encounter Summary ---
Author Organization [facility] Address [address] [place] [address] Care Team Providers Care Die Maker Apprentice Name Role Phone Jsoé Manuel Linares MD Primary Care Provider Encounter Details Date Type Department Care Team (Latest Contact Info) Description 05/30/2025 11:15 AM EDT Ancillary Procedure [facility] [address] [place] [address] Adjustment and management of cardiac pacemaker Social History Tobacco Use Types Packs/Day Years Used Date Smoking Tobacco: Former Cigarettes Q uit: 1985 Smokeless Tobacco: Never Alcohol Use Standard Drinks/Week Comments Yes 0 (1 standard drink = 0.6 oz pur e alcohol) occasional C Utilities Answer Date Recorded In the past 12 months has th e electric, gas, oil, or water company threatened to shut off services in your home? No 01/15/2024 Humiliation, Afraid, Rape, and Kick questionnair e Answer Date Recorded Within the last year, have y ou been afraid of your partner or ex-partner? No 01/15/2024 Emotionally Abused Not on file 01/15/2024 Physically Abused Not on file 01/15/2024 Sexually Abused Not on file 01/15/2024 Overall Financial Resource Strain (CARDIA) Answe r Date Recorded How hard is it for you to pa y for the very basics like food, housing, medical care, and heating? Not hard at all 01/15/2024 Transportation Answer Date Recorded In the past 12 months, has l ack of transportation kept you from medical appointments or from getting medications? No 01/15/2024 Lack of Transportation (Non-Medical) Not on file 01/15/2024 Housing Stability Vital Sign Answer Pavan e Recorded Unable to Pay for Housing in the Last Year Not o n file 01/15/2024 Number of Places Lived in the Last Year Not on f ile 01/15/2024 In the last 12 months, was t here a time when you did not have a steady place to sleep or slept in a chcf (including now)? No 01/15/2024 Hunger Vital Sign Answer Date Recorded Within the past 12 months, y ou worried that your food would run out before you got the money to buy more. Never true 01/15/20 24 Ran Out of Food in the Last Year Not on file 01/15/2024 Comments Unknown Sex and Gender Information Value Date Recorded Sex Assigned at Female 05/11/2025 11:35 AM EDT Legal Sex Female 10:50 PM EDT Gender Identity Female 05/11/2025 11:35 AM EDT Sexual Orientation Heterosexual or Straight 11/2024 11:35 AM EDT documented as of this encounter Plan of Treatment Not on file documented as of this encounter Procedures Procedure Name Priority Date/Time Associated Diagnosis Comments CARDIAC DEVICE CHECK CHECK - REMOTE Routine 05/31/2025 10:46 AM EDT Adjustment and management of cardiac pacemaker documented in this encounter Results * CARDIAC DEVICE CHECK - REMOTE - PACEMAKER (05/31/2025 10:46 AM EDT) us Oli Edmonds MD CV IMPLANTABLE CARDIAC DEVICE NV OCEDURES Final Result CPACS documented in this encounter Visit Diagnoses Diagnosis Adjustment and management of cardiac pacemaker Fitting and adjustment of cardiac pacemaker documented in this encounter Care Teams Die Maker Apprentice Relationship Specialty Start Date End Date José Manuel Linares MD [address] [place] [address] PCP - General 08/12/22 documented as of this encounter
--- OUTSIDE RECORDS SUMMARY | 2025-06-09 12:55 | XMS_ITS | Encounter Summary ---
Author Organization [facility] Address [address] [place] [address] Care Team Providers Care Transaction Manager Name Role Phone José Manuel Linares MD Primary Care Provider [phone] Encounter Details Date Type Department Care Team (Late st Contact Info) Description 05/27/2025 Orders Only [facility] Cardiology Clinic [address] [place] [address] Oli Edmonds MD [address] [place] [address] Social History Tobacco Use Types Packs/Day Years Used Date Smoking Tobacco: Former Cigarettes Q uit: 1985 Smokeless Tobacco: Never Alcohol Use Standard Drinks/Week Comments Yes 0 (1 standard drink = 0.6 oz pur e alcohol) occasional [facility] Utilities Answer Date Recorded In the past [...] place to sleep or slept in a prison (including now)? No 01/15/2024 Hunger Vital Sign [...] Date/Time Associated Diagnosis Comments CARDIAC DEVICE CHECK - REMOTE - PACEMAKER Routine 05/27/2025 12:00 AM EDT documented in this encounter Results * Cardiac device check - Remote pacemaker (05/27/2025 12:00 AM EDT) Anatomical Region Laterality Modality Other 05/27/2025 Oli Edmonds MD CV IMPLANTABLE CARDIAC DEVICE ND OCEDURES Final Result documented in this encounter Visit Diagnoses Not on filedocumented in this encounter Care Teams Transaction Manager Relationship Specialty Start Date End Date José Manuel Linares MD [address] [place] [address] PCP - General 08/12/22 documented as of this encounter
--- OUTSIDE RECORDS SUMMARY | 2025-06-09 12:55 | XMS_ITS | Encounter Summary ---
Author Organization [facility] Address [address] [place] [address] Care Team Providers Care Nut Sifter Name Role Phone José Manuel Linares MD Primary Care Provider [phone] José Manuel iLnares MD Unavailable Encounter Details Date Type Department Care Team (Late st Contact Info) Description 07/26/2024 Orders Only [facility] [address] [place] [address] José Manuel Linares MD [address] [facility] [place] [address] Social History Tobacco Use Types Packs/Day Years Used Date Smoking Tobacco: Former Cigarettes Passive Smoke Exposure: Past Smokeless Tobacco: Never Alcohol Use Standard Drinks/Week Comments Yes 0 (1 standard drink = 0.6 oz pur e alcohol) OCCASSIONAL Comments Unknown Sex and Gender Information Value Date Recorded Sex Assigned at Not on file Legal Sex Female 6:34 PM EDT Gender Identity Not on file Sexual Orientation Not on file documented as of this encounter Plan of Treatment Not on file documented as of this encounter Procedures Procedure Name Priority Date/Time Associated Diagnosis Comments RHYTHM ECG, REPORT Routine 07/26/2024 2:[address] CERVICAL SPINE WO IV CONTRAST Routine 07/24/2024 4:03 PM EST documented in this encounter Results * ECG Rhythm Report (07/26/2024 2:54 PM EST) us José Manuel Linares MD IN CLINIC/BEDSIDE ORDERABLES Fin al Result * CT cervical spine wo IV contrast (07/24/2024 4:03 PM EST) Anatomical Region Laterality Modality Spine, C-spine Computed Tomogra phy us Demo Provider Noms MD ARENAS CT PROCEDURES Final Re sult documented in this encounter Visit Diagnoses Not on filedocumented in this encounter Care Teams Nut Sifter Relationship Specialty Start Date End Date José Manuel Linares MD PCP - General Family Medicine 12/23/23 José Manuel Linares MD [address] [place] [address] PCP - [employer] 09/08/17 documented as of this encounter
--- OUTSIDE RECORDS SUMMARY | 2025-06-09 12:55 | XMS_ITS | Clinical Summary ---
Author Organization [facility] Address [address] [place] [place] [address] Care Team Providers Care Human Resource Intern Name Role Phone José Manuel Linares MD Primary Care Provider [phone] Allergies No known active allergies Medications Viberzi 100 mg tablet Take 100 mg by mouth in the morning. 01/23/20 23 Active aspirin 81 mg EC tablet Take 81 mg by mouth in the evening. Active isosorbide mononitrate ER (Imdur) 60 mg 24 hr tabletIndication s:Chest pain, unspecified type Take 1 tablet (60 mg) by mouth once daily as directed. 90 tablet 3 04/19/20 24 Active atorvastatin (Lipitor) 20 mg tabletIndication s:Coronary artery disease due to lipid rich plaque Take 1 tablet (20 mg) by mouth at bedtime. 90 tablet 3 05/23/20 25 Active metoprolol succinate XL (Toprol-XL) 25 mg 24 hr tabletIndication s:Benign hypertensive heart disease without congestive heart failure Take 1 tablet (25 mg) by mouth in the morning. Do not crush or chew. 90 tablet 3 05/23/20 25 026 Active metoprolol succinate XL (Toprol-XL) 50 mg 24 hr tabletIndication s:Benign hypertensive heart disease without congestive heart failure Take 1 tablet (50 mg) by mouth in the morning. Do not crush or chew. 90 tablet 3 03/08/20 24 025 Discontinued atorvastatin (Lipitor) 20 mg tabletIndication s:Coronary artery disease due to lipid rich plaque TAKE 1 TABLET AT BEDTIME 90 tablet 3 05/20/20 24 025 Discontinued(Re order) metoprolol succinate XL (Toprol-XL) 25 mg 24 hr tabletIndication s:Benign hypertensive heart disease without congestive heart failure Take 1 tablet (25 mg) by mouth in the morning. Do not crush or chew. 05/12/20 25 025 Discontinued(Re order) Active Problems Problem Noted Date Diagnosed Date Closed fracture of pelvis 07/24/2024 Encounter for long-term current use of medicatio n 06/21/2024 Subclinical hypothyroidism 06/21/2024 Hospital discharge follow-up 01/20/2024 Overview (01/23/2024): Last Assessment & Plan: Patient here for follow up after recent hospital admission at [facility] Reviewed hospital records. Answered patient's questions and concerns related to hospital stay/medication changes/results of testing. S/P placement of cardiac pacemaker 01/20/2024 01/23/2024 Overview (01/23/2024): Last Assessment & Plan: S/p PPM for high degree 2nd degree Heart block and sinus pauses. Doing well. No signs of infection. Denies SOB, sig post op pain. Follow up scheduled with Cardiology on Friday. 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 Onychomycosis 12/23/2023 01/15/2024 Overview (01/15/2024): Last Assessment & Plan: Developed fungal infection and cosmetic. Do not recommend oral lamisil due to potential hepatotoxicity. Patient will try OTC topical treatment. Primary osteoarthritis of both hips 12/23/2023 01/15/2024 Overview (01/15/2024): Last Assessment & Plan: Occasional pain and stiffness but tolerable. Use OTC PRN. Increase activity and walking. CAD (coronary artery disease) 03/24/2023 Essential hypertension 03/24/2023 Other hyperlipidemia 03/24/2023 Palpitations 03/24/2023 Dyspnea 03/24/2023 Abnormal EKG 03/24/2023 1st degree AV block 03/24/2023 Encounters Date Type Department Care Team Description 05/30/2025 11:15 AM EDT Ancillary Procedure [facility] Clinic [address] [place] [address] Adjustment and management of cardiac pacemaker 05/27/2025 Orders Only [facility] Clinic [address] [place] [address] Oli Edmonds MD 05/23/2025 Refill [facility] [address] [place] [address] Katelyn Medley MA Coronary artery disease due to lipid rich plaque; Benign hypertensive heart disease without congestive heart failure 05/13/2025 Telephone [facility] [address] [place] [address] Katelyn Medley MA 05/12/2025 1:00 PM EDT Office Visit [facility] [address] [place] [address] Madeline Mosher CNP Coronary artery disease involving [place] coronary artery of [place] heart without angina pectoris (Primary Dx); Benign hypertensive heart disease without congestive heart failure; Abnormal EKG; AV heart block; AV block, 2nd degree; S/P placement of cardiac pacemaker 05/12/2025 Telephone [facility] [address] [place] [address] Katelyn Medley MA 04/25/2025 Telephone [facility] [address] [place] [address] Katelyn Medley MA 03/29/2025 11:00 AM EDT Ancillary Procedure [facility] [address] [place] [address] Encounter for implantable defibrillator reprogramming or check from Last 3 Months Family History Medical History Relation Name Comments Heart attack Father Coronary artery disease Mother Relation Name Status Comments Father Mother Social History Tobacco Use Types Packs/Day Years Used Date Smoking Tobacco: Former Cigarettes Q uit: 1985 Smokeless Tobacco: Never Tobacco Cessation:Counseling Given: Not Answered Alcohol Use Standard Drinks/Week Comments Yes 0 (1 standard drink = 0.6 oz pur e alcohol) occasional [facility] Utilities Answer Date Recorded In the [...] place to sleep or slept in a fpc (including now)? No 01/15/2024 Hunger Vital Sign [...] Heterosexual or Straight 11/2024 11:35 AM EDT Last Filed Vital Signs Vital Sign Reading Time Taken Comments Blood Pressure 154/88 05/12/2025 12:49 PM EDT Pulse 68 05/12/2025 12:49 PM EDT Temperature 36.7 C (98 F) 01/16/2024 12:00 PM EDT Respiratory Rate 15 01/16/2024 12:00 PM EDT Oxygen Saturation 94% 05/12/2025 12:49 PM EDT Inhaled Oxygen Concentration - - Weight 54.9 kg (121 lb) 05/12/2025 12:49 PM EDT Height 162.6 cm (5' 4 ) 05/12/2025 12:49 PM EDT Body Mass Index 20.77 05/12/2025 12:49 PM EDT Plan of Treatment Health Maintenance Due Date Last Done Comments Medicare Annual Wellness (AWV) 1940 Depression Screening 1952 Pneumococcal Vaccine: 50+ Years (1 of 2 - PCV) 1959 Adult Tetanus 1962 Zoster Vaccines (1 of 2) 1990 Fall Risk Screening 2005 COVID-19 Vaccine ( season) 2025 06/03/2024, 06/06/2023, 04/08/2022, Additional history exists Influenza Vaccine (#1) 2025 , 06/06/2023, 04/08/2022, Additional history exists HIB Vaccines Aged Out No longer eligi ble based on patient's age to complete this topic HPV Vaccines Aged Out No longer eligi ble based on patient's age to complete this topic IPV Vaccines Aged Out No longer eligi ble based on patient's age to complete this topic Meningococcal B Vaccine Aged Out No l onger eligible based on patient's age to complete this topic Meningococcal Vaccine Aged Out No lisa lala eligible based on patient's age to complete this topic Rotavirus Vaccines Aged Out No longer eligible based on patient's age to complete this topic Medical Devices Implanted Type Area Freelance Displayer Device Identifier Shelf Expiration Date Model / Serial / Lot PacemakerBenjamin - [id number] - [id number] Implanted:Qty: 1 on 01/15/2024 by Oli Edmonds MD at [facility] Implantable Loop Recorder [employer] [id number] 04/07/2025 [id number] / [id number] / Lead,JulissaS 53, - [id number] - [id number] Implanted:Qty: 1 on 01/15/2024 by Oli Edmonds MD at [facility] Lead [employer] [id number] 10/08/2025 [id number] / [id number] / Lead,JulissaS 45 - [id number] - [id number] Implanted:Qty: 1 on 01/15/2024 by Oli Edmonds MD at [facility] Lead [employer] [id number] 12/06/2025 [id number] / [id number] / Procedures Procedure Name Priority Date/Time Associated Diagnosis Comments CARDIAC DEVICE CHECK CHECK - REMOTE Routine 05/31/2025 10:46 AM EDT Adjustment and management of cardiac pacemaker CARDIAC DEVICE CHECK - REMOTE - PACEMAKER Routine 05/27/2025 12:00 AM EDT CARDIAC DEVICE CHECK - IN CLINIC - PACEMAKER DUAL CHAMBER W/ PROG Routine 04/01/2025 9:53 AM EDT Encounter for implantable defibrillator reprogramming or check CARDIAC DEVICE CHECK CHECK - REMOTE Routine 03/25/2025 5:22 PM EDT Adjustment and management of cardiac pacemaker from Last 3 Months Results * CARDIAC DEVICE CHECK - REMOTE - PACEMAKER (05/31/2025 10:46 AM EDT) Only the most recent of2 resultswithin the time period is included. us Oli Edmonds MD CV IMPLANTABLE CARDIAC DEVICE IN OCEDURES Final Result CPACS * Cardiac device check - Remote pacemaker (05/27/2025 12:00 AM EDT) Anatomical Region Laterality Modality Other 05/27/2025 Oli Edmonds MD CV IMPLANTABLE CARDIAC DEVICE IN OCEDURES Final Result * CARDIAC DEVICE CHECK - IN CLINIC - PACEMAKER DUAL CHAMBER W/ PROG (04/01/2025 9:53 AM EDT) Anatomical Region Laterality Modality Other Narrative 04/05/2025 10:17 AM EDT By using the attestations below, the signing clinician agrees that I have read and verify that the documentation has been personally reviewed by me and ensure that the documentation accurately reflects the encounter. Routine EP device follow up as per schedule. Please see attached note Oli Edmonds MD CV IMPLANTABLE CARDIAC DEVICE IN OCEDURES Final Result from Last 3 Months Insurance [employer] MEDICARE ADVANTAGE Advance Directives * Full Code (Latest Code Status on File) Date Activated Date Inactivated Comments 01/15/2024 8:33 PM 01/16/2024 5:07 PM Care Teams Human Resource Intern Relationship Specialty Start Date End Date José Manuel Linares MD [address] [place] [address] PCP - General 08/12/22
--- OUTSIDE RECORDS SUMMARY | 2025-06-09 12:55 | XMS_ITS | Encounter Summary ---
Author Organization [facility] Address [address] [address] Care Team Providers Care Supply Chain Generalist Name Role Phone José Manuel Linares MD Primary Care Provider [phone] Encounter Details Date Type Department Care Team (Late st Contact Info) Description 02/27/2025 Orders Only [facility] Cardiology Clinic [address] [place] [address] Oli dEmonds MD [address] [place] [address] Social History Tobacco Use Types Packs/Day Years Used Date Smoking Tobacco: Former Cigarettes Q uit: 1985 Smokeless Tobacco: Never Alcohol Use Standard Drinks/Week Comments Yes 0 (1 standard drink = 0.6 oz pur e alcohol) occasional [facility] Utilities Answer Date Recorded In the [...] place to sleep or slept in a correction (including now)? No 01/15/2024 Hunger Vital Sign [...] DEVICE CHECK - REMOTE - PACEMAKER Routine 02/27/2025 12:00 AM EDT documented in this encounter Results * Cardiac device check - Remote pacemaker (02/27/2025 12:00 AM EDT) Anatomical Region Laterality Modality Other 02/27/2025 us Oli Edmonds MD CV IMPLANTABLE CARDIAC DEVICE [place] OCEDURES Final Result documented in this encounter Visit Diagnoses Not on filedocumented in this encounter Care Teams Supply Chain Generalist Relationship Specialty Start Date End Date José Manuel Linares MD [address] [place] [address] PCP - General 08/12/22 documented as of this encounter
--- OUTSIDE RECORDS SUMMARY | 2025-06-09 12:55 | XMS_ITS | Encounter Summary ---
Author Organization [facility] Address [address] [place] [address] Care Team Providers Care [facility] Office Supervisor Name Role Phone José Manuel Linares MD Primary Care Provider [phone] Encounter Details Date Type Department Care Team (Late st Contact Info) Description 05/13/[address] [facility] [address] [place] [address] Katelyn Medley MA Social History Tobacco Use Types Packs/Day Years [...] place to sleep or slept in a group home (including now)? No 01/15/2024 Hunger Vital Sign [...] AM EDT documented as of this encounter Miscellaneous Notes * Telephone Encounter - Madeline Mosher CNP - 05/27/2025 1:51 PM EDT BP's overall look good. Continue current medications. Thank you! * Telephone Encounter - Madeline Mosehr CNP - 05/17/2025 9:26 AM EDT She can increase her Toprol to 50mg daily. Follow-up BP phone call in 2 weeks. Thank you documented in this encounter Plan of Treatment Not on file documented as of this encounter Visit Diagnoses Not on filedocumented in this encounter Care Teams Animal [facility] Office Supervisor Relationship Specialty Start Date End Date José Manuel Linares MD [address] [place] [address] PCP - General 08/12/22 documented as of this encounter
--- OUTSIDE RECORDS SUMMARY | 2025-06-09 12:55 | XMS_ITS | Encounter Summary ---
Author Organization [employer] Address [id number] [address] [place] [address] Care Team Providers Care Tester Equipment Name Role Phone Unavailable Primary Care Provider Unavailabl e Encounter Details Date Type Department Care Team (Late st Contact Info) Description 07/25/2024 Orders Only [facility] External Film Storage [facility] [place] [address] Transcribe, Orders Support User Pain (Primary Dx) Social History Tobacco Use Types Packs/Day Years Used Date Smoking Tobacco: Former Cigarettes Smokeless Tobacco: Never Alcohol Use Standard Drinks/Week Comments Yes 0 (1 standard drink = 0.6 oz pur e alcohol) [facility] Utilities Answer Date Recorded In the past 12 months has e g4interactive, gas, oil, or water company threatened to shut off services in your home? No 07/25/2024 AUDIT-C Answer Date Recorded Q1: How often do you have a drink containing alc ohol? Monthly or less 07/25/2024 Q2: How many drinks containi ng alcohol do you have on a typical day when you are drinking? 1 or 2 07/25/2024 Q3: How often do you have si x or more drinks on one occasion? Never 07/25/2024 PHQ-2 Answer Date Recorded Total Score 0 07/25/2024 PRAPARE - Transportation Answer Date Re corded In the past 12 months, has l ack of transportation kept you from medical appointments or from getting medications? No 07/09 In the past 12 months, has l ack of transportation kept you from meetings, work, or from getting things needed for daily living? No 07/25/2024 Housing Instability Answer Date Recorde d Are you worried or concerned that in the next two months you may not have stable housing that you own, rent or stay in as a part of a household? No 07/25/2024 Childcare Answer Date Recorded Childcare Unknown 02/17/2019 Employment Answer Date Recorded Employment Unknown 02/17/2019 Hunger Screening Answer Date Recorded Within the past 12 months we worried whether our food would run out before we got money to buy more. Never True 07/25/2024 Within the past 12 months th e food we bought just didn't last and we didn't have money to get more. Never True 07/25/2024 Purpose - Life Answer Date Recorded Purpose and direction in life Unknown Comments No Sex and Gender Information Value Date Recorded Sex Assigned at Not on file Legal Sex Female 11:34 AM EDT Gender Identity Not on file Sexual Orientation Not on file documented as of this encounter Functional Status * Audit-C Score Answer Date of Assessment Author 1 07/25/2024 11:12 AM Sandra Camacho RN * Question Answer Date of Assessment Author Q1: How often do you have a drink containing alcohol? Monthly or less 07/25/2024 11:12 AM Pacheco Camacho RN Q2: How many drinks containing alcohol do you have on a typical day when you are drinking? 1 or 2 07/25/2024 11:12 AM Laurence Camacho R N Q3: How often do you have six or more drinks on one occasion? Never 07/25/2024 11:12 AM Laurence Camacho R N * Question Answer Date of Assessment Author Functional Status Assistive device 07/25/2024 11:12 AM Laurence Camacho RN documented as of this encounter Mental Status * Question Answer Entry Date Author Overall Cognitive Status WFL 07/28/2024 4:34 PM EST Yael Love COTA/Shady documented in this encounter Plan of Treatment Upcoming Encounters Date Type Department Care Team (Late st Contact Info) Description 07/25/2025 9:00 AM EST [facility] [place] [address] Dora Green, FILTER MACHINE OPERATOR-DOORMAKER [address] [place] [address] documented as of this encounter Goals Goal Patient Goal Type Associated Problems Recent Progress Patient-Stated? Author home General Yes Shirlene Manjarrez, RN Note: Evaluation of progress towards goal: Progress to a safe discharge documented as of this encounter Results * CT pelvis without contrast (07/24/2024 1:35 PM EST) us Scanning Provider External IMG CT ORDERABLES Fin al Result * CT cervical spine without contrast (07/24/2024 1:30 PM EST) us Scanning Provider External IMG CT ORDERABLES Fin al Result documented in this encounter Visit Diagnoses Diagnosis Pain- Primary Generalized pain documented in this encounter Additional Health Concerns Assessment Noted Time PHQ-9 Depression Total Score: 0 07/25/20 24 11:12 AM EST documented as of this encounter
--- OUTSIDE RECORDS SUMMARY | 2025-06-09 12:55 | XMS_ITS | Clinical Summary ---
Author Organization [employer] Address [id number] [address] [place] [address] Care Team Providers Care Professional Nursing Assistant Name Role Phone Unavailable Primary Care Provider Unavailabl e Allergies No known active allergies Medications atorvastatin (LIPITOR) 20 mg tablet Take 1 tablet (20 mg total) by mouth once daily at bedtime. 05/20/2024 Active VIBERZI 100 mg tablet Take 1 tablet (100 mg total) by mouth in the morning and 1 tablet (100 mg total) in the evening. Take with meals. 06/10/2024 Active isosorbide mononitrate (IMDUR) 60 mg 24 hr tablet Take 1 tablet (60 mg total) by mouth daily. 09/29/2023 Active metoprolol succinate XL (TOPROL XL) 50 mg 24 hr tablet Take 1 tablet (50 mg total) by mouth in the morning. 03/08/2024 Active Active Problems Problem Noted Date Diagnosed Date Closed displaced fracture of pelvis, unspecified part of pelvis, initial encounter 07/24/2024 Immunizations Immunization Administration Dates Next Due Covid-19,mrna, Lnp-s, Pf, 50 mcg/0.5ml 12+ Seasonal 06/03/2024 Influenza High Dose Preservative Free IM 024,06/18/2019,07/13/2018 Influenza Vaccine, Quadrivalent, Adjuvanted 09/2021 Influenza, High-dose, Quadrivalent 06/06/2023, Influenza, Im Trivalent Preservative 06/07/2021 RSV, recombinant, protein duque bunit RSVpreF, adjuvant reconstituted, 0.5 mL, PF 06/03/2024 Family History Medical History Relation Name Comments Heart disease Father Heart disease Mother Relation Name Status Comments Father Mother Social History Tobacco Use Types Packs/Day Years Used Date Smoking Tobacco: Former Cigarettes Smokeless Tobacco: Never Tobacco Cessation:Counseling Given: No Alcohol Use Standard Drinks/Week Comments Yes 0 (1 standard drink = 0.6 oz pur e alcohol) [facility] Utilities Answer Date Recorded In the [...] on file Sexual Orientation Not on file Last Filed Vital Signs Vital Sign Reading Time Taken Comments Blood Pressure 126/88 07/29/2024 2:35 PM EST Pulse 85 07/29/2024 2:35 PM EST Temperature 36.8 C (98.3 F) 07/29/2024 2:35 PM EST Respiratory Rate 22 07/29/2024 2:35 PM EST Oxygen Saturation 94% 07/29/2024 2:35 PM EST Inhaled Oxygen Concentration - - Weight 55.7 kg (122 lb 12.7 oz) 07/24/2024 9:33 PM EST Height 162.6 cm (5' 4 ) 07/24/2024 9:33 PM EST Body Mass Index 21.08 07/24/2024 9:33 PM EST Plan of Treatment Upcoming Encounters Date Type Department Care Team (Late st Contact Info) Description 07/25/2025 9:00 AM EST [facility] Visit [facility] [address] [place] [address] Dora Green, CLIN NURSE-SILICA MIXER OPERATOR [address] [place] [address] Health Maintenance Due Date Last Done Comments DTaP,Tdap and Td Vaccines (1 - Tdap) 1959 Zoster (Shingles) Vaccine (1 of 2) 1990 Fall Risk Screening 2005 COVID-19 Vaccine (7 2023-2 5 season) 2025 06/03/2024, 06/06/2023, 04/08/2022, Additional history exists Influenza Vaccine 05/09/2025 06/03/2024, , 04/08/2022, Additional history exists Depression Screening 07/25/2025 07/25/2024 Tobacco Screening 07/25/2025 07/25/2024 Goals Goal Patient Goal Type Associated Problems Recent Progress Patient-Stated? Author home General Yes Shirlene Manjarrez, RN Note: Evaluation of progress towards goal: Progress to a safe discharge Medical Devices Not on file Insurance [employer] MEDICARE Advance Directives * Full Code (Latest Code Status on File) Date Activated Date Inactivated Comments 07/24/2024 7:22 PM 07/29/2024 6:24 PM
--- OUTSIDE RECORDS SUMMARY | 2025-06-09 12:55 | XMS_ITS | Encounter Summary ---
Author Organization [facility] Address [address] [facility] [place] [address] Care Team Providers Care Operating Room Rn Name Role Phone José Manuel Linares MD Primary Care Provider [phone] José Manuel Linares MD Unavailable Encounter Details Date Type Department Care Team (Late st Contact Info) Description 09/13/2024 [facility] [address] [place] [address] José Manuel Linares MD [address] [place] [address] Social History Tobacco Use Types Packs/Day Years [...] on filedocumented in this encounter Care Teams Operating Room Rn Relationship Specialty Start Date End Date José Manuel Linares MD PCP - General Family Medicine 12/23/23 José Manuel Linares MD [address] [place] [address] PCP - [employer] 09/08/17 documented as of this encounter
--- OUTSIDE RECORDS SUMMARY | 2025-06-09 12:55 | XMS_ITS | Encounter Summary ---
Author Organization [facility] Address [address] [place] [address] Care Team Providers Care Gem Expert Name Role Phone José Manuel Linares MD Primary Care Provider [phone] José Manuel Linares MD Unavailable Encounter Details Date Type Department Care Team (Late st Contact Info) Description 07/28/2024 Orders Only [facility] [address] [place] [address] Sim Barron MD Social History Tobacco Use Types Packs/Day Years [...] Procedure Name Priority Date/Time Associated Diagnosis Comments CT PELVIS W CON Routine 07/24/2024 8:13 AM EST documented in this encounter Results * CT PELVIS W CON (07/24/2024 8:13 AM EST) Anatomical Region Laterality Modality Radiographic Violeta ging Dianneo Provider Beatrice ARENAS XR PROCEDURES Final Re sult documented in this encounter Visit Diagnoses Not on filedocumented in this encounter Care Teams Gem Expert Relationship Specialty Start Date End Date José Manuel Linares MD PCP - General Family Medicine 4/16/24 José Manuel Linares MD [address] [place] [address] PCP - [employer] 09/08/17 documented as of this encounter
--- NOTE | 2025-06-09 13:00 | CA_ITS ---
Patient Name: LARRY LOJA MR#: [id number] : 1940 Exam Date: 06/09/2025 Ordering Doctor: AZAM MATHIS CNP ECHOCARDIOGRAM REPORT PROCEDURE: CA ECHO DOPPLER COMPLETE INDICATIONS: Abnormal ECG, pacemaker COMPARISON: None. DESCRIPTION: COMPLETE ECHOCARDIOGRAM Real-time transthoracic echocardiography with 2D, M-mode, spectral and color flow Doppler performed. QUALITY: Technical quality was good. LEFT VENTRICLE: Normal chamber size. Normal left ventricular wall thickness. Normal systolic function. Estimated left ventricular ejection fraction is 55-60%. LV EF: Normal left ventricular ejection fraction, (>55%). DIASTOLIC: Grade I diastolic dysfunction. ATRIAL SEPTUM: Visually appears intact. LEFT ATRIUM: Mild chamber dilatation. RIGHT ATRIUM: Mild chamber dilatation. Pacer wire present. RIGHT VENTRICLE: Normal chamber size. Normal systolic function. Pacer wire present. TRICUSPID VALVE: Normal mobility and thickness. No stenosis with mild regurgitation. Doppler studies reveal mildly (35-45) elevated right sided pressures. RVSP 37 mmHg MITRAL VALVE: Normal mobility and thickness. No evidence of mitral valve stenosis. Mild mitral annular calcification. Trivial mitral regurgitation. AORTIC VALVE: Normal trileaflet appearance. Mildly thickened leaflets. Normal leaflet mobility. No evidence of aortic valve stenosis. No aortic regurgitation. AORTIC ROOT: Normal diameter and appearance, measuring 3.6 cm. PULMONIC VALVE: Normal thickness and mobility. No stenosis. No regurgitation. PERICARDIUM: No evidence of pericardial effusion. IVC: Collapses with inspiration. PLEURA: CONCLUSION: 1. Normal left ventricular size and systolic function. Estimated LVEF is 55 to 60%. 2. Normal right ventricular size and systolic function. 3. Mild biatrial dilatation. 4. Grade 1 diastolic dysfunction. 5. Mild tricuspid regurgitation. 6. Mildly elevated right-sided pressures. Adult Echocardiography Procedure Report Left Ventricle LVEDD (3.7 - 5.6 cm): 3.68 cm LVESD (2.2 - 4.0 cm): 2.34 cm LVIVS thickness (0.6 - 1.2 cm): 0.96 cm LVPW thickness (0.5 - 1.0 cm): 0.94 cm e': 0.06 m/s E - e': 7.00 LVOT Max Gradient: 3.91 mm[Hg] LVOT Area (cm2): 0.99 m/s Peak Velocity (LVOT): 0.99 m/s Mean Velocity (LVOT): 0.59 m/s LVOT Diameter 2.16 cm Left Ventricular Ejection Fraction: 55-60% Left Atrium LA Volume Index (2D A2C): 21.10 ml/m2 Left Atrium Systolic Dimension: 3.26 cm Mitral Valve MV E to A Ratio: 0.50 Mitral Valve A-Wave Peak Velocity: 0.88 m/s Mitral Valve E-Wave Peak Velocity: 0.44 m/s Right Ventricle Aorta AO Root Diam: 3.56 cm Aortic Valve AoV Area (Peak Ubaldo): 3.25 cm2, 3.25 cm2 AoV Area (VTI): 3.35 cm2, 3.35 cm2 Peak Velocity(Antegrade Flow): 1.11 m/s Peak Gradient(Antegrade Flow): 4.97 mm[Hg] Mean Velocity(Antegrade Flow): 0.76 m/s Mean Gradient(Antegrade Flow): 2.65 mm[Hg] Velocity Time Integral: 23.92 cm Tricuspid Valve Peak Velocity (Regurgitant Flow): 2.30 m/s, 2.91 m/s, 2.60 m/s Pulmonic Valve Peak Velocity: 0.94 m/s Peak Gradient: 3.56 mm[Hg] Right Atrium Right Atrium Systolic Pressure: 38.23 ml, 38.23 ml Dictated by: David Best M.D. on 06/09/2025 at 14:13 Approved by: David Best M.D. on 06/09/2025 at 14:18
--- OUTSIDE RECORDS SUMMARY | 2025-06-09 18:53 | XMS_ITS | CCD ---
Author Organization [facility] Care Team Providers Care Group Cio Name Role Phone DR JOSÉ MANUEL GRISSOM Primary Care Unavailable GENE, DR DU Attending Unavailable GENE, DR DU Consulting Unavailable GENE, DR DU Admitting Unavailable José Manuel Grissom MD Primary Care Provider ANDRE PEREYRA Attending Unavailable RODDY, ANDRE Admitting Unavailable DEEJAY TEJEDA Attending Unavailable SOHAIL DOVER Admitting Unavailable ELODIA MARQUEZ, SILVANO Hernandez Consulting UnavailJR Deluca Consulting Unavailable NELLY DAI Referring Unavailable SOHAIL DOVER Referring Unavailable Unavailable Primary Care Provider UnavailJOSÉ MAUNEL Taylor Attending Unavailable SHAIKH CASTILLO Attending Unavailable JACIEL, JOSÉ MANUEL Attending Unavailable JACIEL, JOSÉ MANUEL Attending Unavailable DARIO PAUL Attending Unavailable JOSÉ MANUEL GRISSOM Referring Unavailable DARIO PAUL Referring Unavailable BEVERLY, DARIO Meade Attending Unavailable BEVERLY, DARIO Meade Referring Unavailable BEVERLY, DARIO Meade Attending Unavailable DARIO PAUL Referring Unavailable JOSÉ MANUEL GRISSOM Attending Unavailable OLI EDMONDS Referring Unavailable LANJESUS Cevallos Referring Unavailable OLI EDMONDS Referring Unavailable OLI EDMONDS Referring Unavailable ELTAHAWZhao, KATIE Attending Unavailable OLI EDMONDS Referring Unavailable AZAM MATHIS Attending Unavailable Medications Current Medications Medication Drug [...] tablet (20 sources) 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-2024 Chronic Conduction disorders (20 sources) Second degree atrioventricular block; Translations: [Atrioventricular block, second degree] Onset: 4 01-20-2024 Chronic Coronary atherosclerosis and other heart disease (20 sources) Atherosclerotic heart disease of [place] coronary artery without angina pectoris; Translations: [Coronary [...] [Pain, unspecified] Onset: 4 Episodic Thyroid disorders (20 sources) Subclinical hypothyroidism; Translations: [Other specified hypothyroidism] Onset: 4 06-21-2024 Chronic Unclassified (1 source) Trauma Onset: 4 Unclassified (1 source) EMS//Larry Handy, 83 y/o F, multiple pelvic fractures s/p fall. Dr. Dover accepted as trauma consult. Ground from [place]. Questions, call Access at [phone] Onset: 4 Past or Other Problems Problem Classification Problem Date Documented Da te Episodic/Chronic Cardiac dysrhythmias (20 sources) Sinus bradycardia; Translations: [Bradycardia, unspecified] Onset: 03-24-2023 01-20-2024 Episodic Mood disorders (3 sources) Mood disorders Onset: 07-25-2024 07-25-2024 Mycoses (20 sources) Onychomycosis; Translations: [Tinea unguium] Onset: 12-23-2023 Resolved: 06-21-2024 12-23-2023 Episodic Other aftercare (20 sources) Post-discharge follow-up; Translations: [Encounter for follow-up examination after completed treatment for conditions other than malignant neoplasm] Onset: 01-20-2024 Resolved: 06-21-2024 01-20-2024 Episodic Other aftercare (20 sources) Long-term current use of drug therapy; 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 Continue current medications. Thank you! [facility] Orders Onlyon 05-27-2025 Orders Only [id number] Larry Handy Amalia 1940 Provider Department Center 05/27/2025 John-OLI EDMONDS [facility] CARD [facility] HeartVAS Family History Problem Relation Age of Onset Coronary artery disease Mother Heart attack Father Family Status - Relation Status Age at Mother Father [facility] 36on 05-17-2025 36 She can increase her Toprol to 50mg daily. Follow-up BP phone call in 2 weeks. Thank you [facility] 36on 05-12-2025 36 Bp check may 18 Normal [facility] Office Visiton 05-12-2025 Follow-up visit [id number] Chet Handykaron [place] 1940 Provider Department Center 05/12/2025 Andrew-AZAM MATHIS [facility]OL[facility] Family History Problem Relation Age of Onset Coronary artery disease Mother Heart attack Father Family Status - Relation Status Age at Mother Father Level of Service:83597 [place] OFFICE/OUTPATIENT ESTABLISHED MOD MDM 30 MIN Reason for Visit and Comments: Hypertension [043706] Coronary Artery Disease [187] [facility] Office Visiton 11-09-2024 Follow-up visit [id number] Chet Handykaron [place] 1940 Provider Department Center 11/09/2024 271-KATIE GÓMEZ CARD [facility] Family History Problem Relation Age of Onset Coronary artery disease Mother Heart attack Father Family Status - Relation Status Age at Mother Father Level of Service:45120 [place] OFFICE/OUTPATIENT ESTABLISHED LOW MDM 20 MIN Normal [facility] XR Pelvis 1 or 2 [...] ALMA. Severe LT hip osteoarthritis. [facility] Pelvis 1 or 2 [facility] Study observation (narrative) [facility] XR Pelvis 1 or 2 [facility] Result: 09/20/2024: AP pelvis demonstrates healing bilateral pubic rami fractures in acceptable alignment with no signs of displacement. Stable right ALMA and severe left osteoarthritis of the left hip noted. No other acute findings noted. Impression: Healing bilateral pubic rami fracture. Stable RT ALMA. Severe LT hip osteoarthritis. Dario Paul APRNM[facility]ICARM[facility] Radiology Study observation (narrative) [facility] XR Pelvis 1 or 2 [facility] Result: 08/23/2024: AP pelvis demonstrates healing bilateral pubic rami fractures in acceptable alignment with no signs of displacement. Stable right ALMA and severe left osteoarthritis of the left hip noted. No other acute findings noted. Impression: healing bilateral pubic rami fracture with stable RT ALMA and severe LT hip osteoarthritis. [facility] Study observation (narrative) [facility] BASIC METABOLIC PANLon 07-29 Anion gap [Moles/Vol] 5 mmol/L Normal 5-15 [facility] Comment on above: Performed By: #### C BCA, 06950-4, PINR, 81107-1, 1798-8, CMP, 3040-3, 5643-2 #### [facility] ([id number]) [address] [place] [address] Calcium [Mass/Vol] 8.7 mg/dL Normal 8.5-10.[address] [facility] Comment on above: Performed By: #### C BCA, 69642-8, PINR, 26066-9, 1798-8, CMP, 3040-3, 5643-2 #### [facility] ([id number]) [address], [address] [place] [address] Chloride [Moles/Vol] 100 mmol/L Normal 98-109 [facility] Comment on above: Performed By: #### C BCA, 25933-8, PINR, 20716-2, 1798-8, CMP, 3040-3, 5643-2 #### [facility] ([id number]) [address], [address] [place] [address] CO2 [Moles/Vol] 32 mmol/L Normal 22-32 [facility] Comment on above: Performed By: #### C BCA, 03714-6, PINR, 57436-7, 1798-8, CMP, 3040-3, 5643-2 #### [facility] ([id number]) [address], [address] [place] [address] Creatinine [Mass/Vol] 0.50 mg/dL Normal 0.40-1.00 [facility] Comment on above: Result Comment: METH OD TRACEABLE TO IDMS STANDARD Performed By: #### C BCA, 51435-2, PINR, 38882-0, 1798-8, CMP, 3040-3, 5643-2 #### [facility] ([id number]) [address], [address] [place] [address] eGFR (CKD-EPI) NON-RACE DEPENDENT >90 Normal >59 [facility] Comment on above: Result Comment: Reported eGFR is based on the CKD-EPI 2020 equation that does not use a race coefficient. Performed By: #### C BCA, 54096-8, PINR, 68971-4, 1798-8, CMP, 3040-3, 5643-2 #### [facility] ([id number]) [address], [address] [place] [address] Glucose [Mass/Vol] 101 mg/dL High 65-[address] [facility] Comment on above: Performed By: #### C BCA, 51070-7, PINR, 26546-3, 1798-8, CMP, 3040-3, 5643-2 #### [facility] ([id number]) [address], [address] [place] [address] Potassium [Moles/Vol] 4.0 mmol/L Normal 3.5-5.0 [facility] Comment on above: Performed By: #### C BCA, 02202-6, PINR, 83857-6, 1798-8, CMP, 3040-3, 5643-2 #### [facility] ([id number]) [address], [address] [place] [address] Sodium [Moles/Vol] 137 mmol/L Normal 134-[address] [facility] Comment on above: Performed By: #### C BCA, 06991-4, PINR, 73267-8, 1798-8, CMP, 3040-3, 5643-2 #### [facility] ([id number]) [address], [address] [place] [address] Urea nitrogen [Mass/Vol] 12 mg/dL Normal 5-27 [facility] Comment on above: Performed By: #### C BCA, 54248-8, PINR, 89203-8, 1798-8, CMP, 3040-3, 5643-2 #### [facility] ([id number]) [address], [address] [place] [address] CBC AND AUTO DIFFon 11-21-20 24 ABSOLUTE BASOPHIL 0.0 X10E9/L Normal 0.0-0.[address] [facility] Comment on above: Performed By: #### C BCA, BMP ####[facility] ([id number])[address], [address] [address] ABSOLUTE NEUTROPHIL 3.1 X10E9/L Normal 1.5-6.6 [facility] Comment on above: Performed By: #### C BCA, BMP ####[facility] ([id number])[address], [place] [address] Basophils/100 WBC (Bld) 0.3 % Normal [facility] Comment on above: Performed By: #### C AGUILA, BMP ####[facility] ([id number])[address] [address], [place] [address] Eosinophils (Bld) [#/Vol] 0.2 10*3/uL Normal 0.0-0.4 [facility] Comment on above: Performed By: #### C AGUILA, BMP ####[facility] ([id number])[address] [address], [place] [address] Eosinophils/100 WBC (Bld) 2.8 % Normal [facility] Comment on above: Performed By: #### C AGUILA, BMP ####[facility] ([id number])[address] [address], [place] [address] Erythrocyte distribution width (RBC) [Ratio] 13.3 % Normal 11.5-15.0 [facility] Comment on above: Performed By: #### C AGUILA, BMP ####[facility] ([id number])[address] [address], [place] [address] Hematocrit (Bld) [Volume fraction] 27.7 % Low 35-47 [facility] Comment on above: Performed By: #### C BCA, BMP ####[facility] ([id number])[address] [address] [address] Hemoglobin (Bld) [Mass/Vol] 9.4 g/dL Low 11.7-15.5 [facility] Comment on above: Performed By: #### C BCA, BMP ####[facility] ([id number])[address], [address] [address] Lymphocytes (Bld) [#/Vol] 1.5 10*3/uL Normal 1.0-3.5 [facility] Comment on above: Performed By: #### C AGUILA, BMP ####[facility] ([id number])[address] [address] Lymphocytes/100 WBC (Bld) 27.2 % Normal [facility] Comment on above: Performed By: #### C AGUILA, BMP ####[facility] ([id number])[address], [place] [address] MCH (RBC) [Entitic mass] 30.3 pg Normal 27-34 [facility] Comment on above: Performed By: #### C AGUILA, BMP ####[facility] ([id number])[address] [address] MCHC (RBC) [Mass/Vol] 34.0 g/dL Normal 32-36 [facility] Comment on above: Performed By: #### C AGUILA, BMP ####[facility] ([id number])[address], [place] [address] MCV (RBC) [Entitic vol] 89 fL Normal 80-100 [facility] Comment on above: Performed By: #### C AGUILA, BMP ####[facility] ([id number])[address], [place] [address] Monocytes (Bld) [#/Vol] 0.7 10*3/uL Normal 0-0.9 [facility] Comment on above: Performed By: #### C BCA, BMP ####[facility] ([id number])[address], [address] [address] Monocytes/100 WBC (Bld) 13.1 % Normal [facility] Comment on above: Performed By: #### C BCA, BMP ####[facility] ([id number])[address] [address] Neutrophils/100 WBC (Bld) 56.6 % Normal [facility] Comment on above: Performed By: #### C BCA, BMP ####[facility] ([id number])[address], [place] [address] Platelet mean volume (Bld) [Entitic vol] 8.2 fL Normal 7-12 [facility] Comment on above: Performed By: #### C AGUILA, BMP ####[facility] ([id number])[address] [address], [place] [address] Platelets (Bld) [#/Vol] 176 10*3/uL Normal 150-450 [facility] Comment on above: Performed By: #### C AGUILA, BMP ####[facility] ([id number])[address] [address] RBC COUNT 3.11 X10E12/L Low 3.80-5.20 [facility] Comment on above: Performed By: #### C BCA, BMP ####[facility] ([id number])[address] [address], [place] [address] WBC (Bld) [#/Vol] 5.5 10*3/uL Normal 4.0-11.[address] [facility] Comment on above: Performed By: #### C BCA, BMP ####[facility] ([id number])[address], [address] [address] BASIC METABOLIC PANLon 07-28 Anion gap [Moles/Vol] 6 mmol/L Normal 5-15 [facility] Comment on above: Performed By: #### C BCA, BMP ####[facility] ([id number])[address] [address] Calcium [Mass/Vol] 8.5 mg/dL Normal 8.5-10.[address] [facility] Comment on above: Performed By: #### C BCA, BMP ####[facility] ([id number])[address] [place] [address] Chloride [Moles/Vol] 101 mmol/L Normal 98-109 [facility] Comment on above: Performed By: #### C BCA, BMP ####[facility] ([id number])[address] [address] [address] CO2 [Moles/Vol] 33 mmol/L High 22-32 [facility] Comment on above: Performed By: #### C BCA, BMP ####[facility] ([id number])[address] [address], [place] [address] Creatinine [Mass/Vol] 0.45 mg/dL Normal 0.40-1.00 [facility] Comment on above: Result Comment: METH OD TRACEABLE TO IDMS STANDARD Performed By: #### C AGUILA, BMP ####[facility] ([id number])[address] [address], [place] [address] eGFR (CKD-EPI) NON-RACE DEPENDENT >90 Normal >59 [facility] Comment on above: Result Comment: Reported eGFR is based on the CKD-EPI 2020 equation that does not use a race coefficient. Performed By: #### C BCA, BMP ####[facility] ([id number])[address] [address] [place] [address] Glucose [Mass/Vol] 101 mg/dL High 65-[address] [facility] Comment on above: Performed By: #### C BCA, BMP ####[facility] ([id number])[address] [address] [place] [address] Potassium [Moles/Vol] 4.1 mmol/L Normal 3.5-5.0 [facility] Comment on above: Performed By: #### C BCA, BMP ####[facility] ([id number])[address] [address] [place] [address] Sodium [Moles/Vol] 140 mmol/L Normal 134-[address] [facility] Comment on above: Performed By: #### C BCA, BMP ####[facility] ([id number])[address], [address] [place] [address] Urea nitrogen [Mass/Vol] 13 mg/dL Normal 5-27 [facility] Comment on above: Performed By: #### C BCA, BMP ####[facility] ([id number])[address] [address] [place] [address] CBC AND AUTO DIFFon 11-20-20 24 ABSOLUTE BASOPHIL 0.0 X10E9/L Normal 0.0-0.[address] [facility] Comment on above: Performed By: #### C BCA, BMP ####[facility] ([id number])[address] [address] [place] [address] ABSOLUTE NEUTROPHIL 2.6 X10E9/L Normal 1.5-6.6 [facility] Comment on above: Performed By: #### C BCA, BMP ####[facility] ([id number])[address] [address] Basophils/100 WBC (Bld) 0.3 % Normal [facility] Comment on above: Performed By: #### C BCA, BMP ####[facility] ([id number])[address] [address] Eosinophils (Bld) [#/Vol] 0.1 10*3/uL Normal 0.0-0.4 [facility] Comment on above: Performed By: #### C BCA, BMP ####[facility] ([id number])[address] [address] Eosinophils/100 WBC (Bld) 2.5 % Normal [facility] Comment on above: Performed By: #### C BCA, BMP ####[facility] ([id number])[address], [place] [address] Erythrocyte distribution width (RBC) [Ratio] 13.7 % Normal 11.5-15.0 [facility] Comment on above: Performed By: #### C BCA, BMP ####[facility] ([id number])[address] [address] Hematocrit (Bld) [Volume fraction] 27.2 % Low 35-47 [facility] Comment on above: Performed By: #### C AGUILA, BMP ####[facility] ([id number])[address] [address] Hemoglobin (Bld) [Mass/Vol] 9.3 g/dL Low 11.7-15.5 [facility] Comment on above: Performed By: #### C AGUILA, BMP ####[facility] ([id number])[address] [address] Lymphocytes (Bld) [#/Vol] 1.5 10*3/uL Normal 1.0-3.5 [facility] Comment on above: Performed By: #### C BCA, BMP ####[facility] ([id number])[address] [address] Lymphocytes/100 WBC (Bld) 30.6 % Normal [facility] Comment on above: Performed By: #### C BCA, BMP ####[facility] ([id number])[address] [address] MCH (RBC) [Entitic mass] 30.4 pg Normal 27-34 [facility] Comment on above: Performed By: #### C BCA, BMP ####[facility] ([id number])[address], [place] [address] MCHC (RBC) [Mass/Vol] 34.2 g/dL Normal 32-36 [facility] Comment on above: Performed By: #### C AGUILA, BMP ####[facility] ([id number])[address], [place] [address] MCV (RBC) [Entitic vol] 89 fL Normal 80-100 [facility] Comment on above: Performed By: #### C AGUILA, BMP ####[facility] ([id number])[address], [place] [address] Monocytes (Bld) [#/Vol] 0.7 10*3/uL Normal 0-0.9 [facility] Comment on above: Performed By: #### C AGUILA, BMP ####[facility] ([id number])[address], [place] [address] Monocytes/100 WBC (Bld) 13.2 % Normal [facility] Comment on above: Performed By: #### C AGUILA, BMP ####[facility] ([id number])[address], [place] [address] Neutrophils/100 WBC (Bld) 53.4 % Normal [facility] Comment on above: Performed By: #### C AGUILA, BMP ####[facility] ([id number])[address], [place] [address] Platelet mean volume (Bld) [Entitic vol] 8.3 fL Normal 7-12 [facility] Comment on above: Performed By: #### C BCA, BMP ####[facility] ([id number])[address], [place] [address] Platelets (Bld) [#/Vol] 147 10*3/uL Low 150-450 [facility] Comment on above: Performed By: #### C BCA, BMP ####[facility] ([id number])[address], [address] [place] [address] RBC COUNT 3.06 X10E12/L Low 3.80-5.20 [facility] Comment on above: Performed By: #### C BCA, BMP ####[facility] ([id number])[address], [address] [place] [address] WBC (Bld) [#/Vol] 4.9 10*3/uL Normal 4.0-11.[address] [facility] Comment on above: Performed By: #### C BCA, BMP ####[facility] ([id number])[address], [address] [place] [address] BASIC METABOLIC PANLon 07-27 Anion gap [Moles/Vol] 3 mmol/L Low 5-15 [facility] Comment on above: Performed By: #### C BCA, BMP ####[facility] ([id number])[address] [address] [place] [address] Calcium [Mass/Vol] 8.9 mg/dL Normal 8.5-10.[address] [facility] Comment on above: Performed By: #### C BCA, BMP ####[facility] [facility] ([id number])[address] [address] [place] [address] Chloride [Moles/Vol] 102 mmol/L Normal 98-109 [facility] Comment on above: Performed By: #### C BCA, BMP ####[facility] ([id number])[address] [address] [place] [address] CO2 [Moles/Vol] 31 mmol/L Normal 22-32 [facility] Comment on above: Performed By: #### C BCA, BMP ####[facility] ([id number])[address] [address], [place] [address] Creatinine [Mass/Vol] 0.51 mg/dL Normal 0.40-1.00 [facility] Comment on above: Result Comment: METH OD TRACEABLE TO IDMS STANDARD Performed By: #### C BCA, BMP ####[facility] ([id number])[address] [address], [place] [address] eGFR (CKD-EPI) NON-RACE DEPENDENT >90 Normal >59 [facility] Comment on above: Result Comment: Reported eGFR is based on the CKD-EPI 2020 equation that does not use a race coefficient. Performed By: #### C AGUILA, BMP ####[facility] ([id number])[address] [address], [place] [address] Glucose [Mass/Vol] 100 mg/dL High 65-[address] [facility] Comment on above: Performed By: #### C BCA, BMP ####[facility] ([id number])[address] [address] [place] [address] Potassium [Moles/Vol] 4.0 mmol/L Normal 3.5-5.0 [facility] Comment on above: Performed By: #### C BCA, BMP ####[facility] ([id number])[address] [address] [place] [address] Sodium [Moles/Vol] 136 mmol/L Normal 134-[address] [facility] Comment on above: Performed By: #### C BCA, BMP ####[facility] ([id number])[address] [address] [place] [address] Urea nitrogen [Mass/Vol] 10 mg/dL Normal 5-27 [facility] Comment on above: Performed By: #### C BCA, BMP ####[facility] ([id number])[address] [address], [place] [address] CBC AND AUTO DIFFon 20 24 ABSOLUTE BASOPHIL 0.0 X10E9/L Normal 0.0-0.[address] [facility] Comment on above: Performed By: #### C BCA, BMP ####[facility] ([id number])[address] [address] [place] [address] ABSOLUTE NEUTROPHIL 3.7 X10E9/L Normal 1.5-6.6 [facility] Comment on above: Performed By: #### C BCA, BMP ####[facility] ([id number])[address] [address] Basophils/100 WBC (Bld) 0.5 % Normal [facility] Comment on above: Performed By: #### C BCA, BMP ####[facility] ([id number])[address] [address] Eosinophils (Bld) [#/Vol] 0.2 10*3/uL Normal 0.0-0.4 [facility] Comment on above: Performed By: #### C BCA, BMP ####[facility] ([id number])[address] [address] Eosinophils/100 WBC (Bld) 2.5 % Normal [facility] Comment on above: Performed By: #### C BCA, BMP ####[facility] ([id number])[address] [address] Erythrocyte distribution width (RBC) [Ratio] 14.3 % Normal 11.5-15.0 [facility] Comment on above: Performed By: #### C BCA, BMP ####[facility] ([id number])[address] [address] Hematocrit (Bld) [Volume fraction] 32.4 % Low 35-47 [facility] Comment on above: Performed By: #### C BCA, BMP ####[facility] ([id number])[address], [address], [place] [address] Hemoglobin (Bld) [Mass/Vol] 10.9 g/dL Low 11.7-15.5 [facility] Comment on above: Performed By: #### C BCA, BMP ####[facility] ([id number])[address], [place] [address] Lymphocytes (Bld) [#/Vol] 2.0 10*3/uL Normal 1.0-3.5 [facility] Comment on above: Performed By: #### C AGUILA, BMP ####[facility] ([id number])[address], [address] [address] Lymphocytes/100 WBC (Bld) 29.2 % Normal [facility] Comment on above: Performed By: #### C AGUILA, BMP ####[facility] ([id number])[address] [address] MCH (RBC) [Entitic mass] 30.2 pg Normal 27-34 [facility] Comment on above: Performed By: #### C AGUILA, BMP ####[facility] ([id number])[address], [address], [place] [address] MCHC (RBC) [Mass/Vol] 33.6 g/dL Normal 32-36 [facility] Comment on above: Performed By: #### C BCA, BMP ####[facility] ([id number])[address], [address] [address] MCV (RBC) [Entitic vol] 90 fL Normal 80-100 [facility] Comment on above: Performed By: #### C BCA, BMP ####[facility] ([id number])[address], [address], [place] [address] Monocytes (Bld) [#/Vol] 0.8 10*3/uL Normal 0-0.9 [facility] Comment on above: Performed By: #### C AGUILA, BMP ####[facility] ([id number])[address], [address], [place] [address] Monocytes/100 WBC (Bld) 12.5 % Normal [facility] Comment on above: Performed By: #### C BCA, BMP ####[facility] ([id number])[address], [address], [place] [address] Neutrophils/100 WBC (Bld) 55.3 % Normal [facility] Comment on above: Performed By: #### C AGUILA, BMP ####[facility] ([id number])[address], [address], [place] [address] Platelet mean volume (Bld) [Entitic vol] 8.8 fL Normal 7-12 [facility] Comment on above: Performed By: #### C AGUILA, BMP ####[facility] ([id number])[address], [address], [place] [address] Platelets (Bld) [#/Vol] 167 10*3/uL Normal 150-450 [facility] Comment on above: Performed By: #### C AGUILA, BMP ####[facility] ([id number])[address], [address], [place] [address] RBC COUNT 3.62 X10E12/L Low 3.80-5.20 [facility] Comment on above: Performed By: #### C AGUILA, BMP ####[facility] ([id number])[address], [address], [place] [address] WBC (Bld) [#/Vol] 6.7 10*3/uL Normal 4.0-11.[address] [facility] Comment on above: Performed By: #### C AGUILA, BMP ####[facility] ([id number])[address], [address], [place] [address] BASIC METABOLIC PANLon 07-26 Anion gap [Moles/Vol] 4 mmol/L Low 5-15 [facility] Comment on above: Performed By: #### C BCA, BMP ####[facility] ([id number])[address] [address], [place] [address] Calcium [Mass/Vol] 8.2 mg/dL Low 8.5-10.[address] [facility] Comment on above: Performed By: #### C BCA, BMP ####[facility] ([id number])[address] [address] [place] [address] Chloride [Moles/Vol] 103 mmol/L Normal 98-109 [facility] Comment on above: Performed By: #### C BCA, BMP ####[facility] ([id number])[address] [address], [place] [address] CO2 [Moles/Vol] 29 mmol/L Normal 22-32 [facility] Comment on above: Performed By: #### C BCA, BMP ####[facility] ([id number])[address] [address] [place] [address] Creatinine [Mass/Vol] 0.60 mg/dL Normal 0.40-1.00 [facility] Comment on above: Result Comment: METH OD TRACEABLE TO IDMS STANDARD Performed By: #### C BCA, BMP ####[facility] ([id number])[address] [address] GFR/1.73 sq M.predicted among non-blacks MDRD (S/P/Bld) [Vol rate/Area] 89 mL/min/{1.73_m2} Normal >59 [facility] Comment on above: Result Comment: Reported eGFR is based on the CKD-EPI 2020 equation that does not use a race coefficient. Performed By: #### C BCA, BMP ####[facility] ([id number])[address] [address] Glucose [Mass/Vol] 114 mg/dL High 65-[address] [facility] Comment on above: Performed By: #### C AGUILA, BMP ####[facility] ([id number])[address], [place] [address] Potassium [Moles/Vol] 4.1 mmol/L Normal 3.5-5.0 [facility] Comment on above: Performed By: #### C AGUILA, BMP ####[facility] ([id number])[address], [address] [place] [address] Sodium [Moles/Vol] 136 mmol/L Normal 134-[address] [facility] Comment on above: Performed By: #### C AGUILA, BMP ####[facility] ([id number])[address] [address] [place] [address] Urea nitrogen [Mass/Vol] 10 mg/dL Normal 5-27 [facility] Comment on above: Performed By: #### C AGUILA, BMP ####[facility] ([id number])[address] [address] CBC AND AUTO DIFFon 11-18-20 24 ABSOLUTE BASOPHIL 0.0 X10E9/L Normal 0.0-0.[address] [facility] Comment on above: Performed By: #### C AGUILA, BMP ####[facility] ([id number])[address] [address] [place] [address] ABSOLUTE NEUTROPHIL 3.6 X10E9/L Normal 1.5-6.6 [facility] Comment on above: Performed By: #### C AGUILA, BMP ####[facility] ([id number])[address] [address] Basophils/100 WBC (Bld) 0.3 % Normal [facility] Comment on above: Performed By: #### C AGUILA, BMP ####[facility] ([id number])[address] [address], [place] [address] Eosinophils (Bld) [#/Vol] 0.1 10*3/uL Normal 0.0-0.4 [facility] Comment on above: Performed By: #### C AGUILA, BMP ####[facility] ([id number])[address] [address], [place] [address] Eosinophils/100 WBC (Bld) 2.3 % Normal [facility] Comment on above: Performed By: #### C AGUILA, BMP ####[facility] ([id number])[address] [address] [place] [address] Erythrocyte distribution width (RBC) [Ratio] 14.3 % Normal 11.5-15.0 [facility] Comment on above: Performed By: #### C AGUILA, BMP ####[facility] ([id number])[address] [address] Hematocrit (Bld) [Volume fraction] 27.6 % Low 35-47 [facility] Comment on above: Performed By: #### C AGUILA, BMP ####[facility] ([id number])[address] [address] Hemoglobin (Bld) [Mass/Vol] 9.4 g/dL Low 11.7-15.5 [facility] Comment on above: Performed By: #### C AGUILA, BMP ####[facility] ([id number])[address] [address] [place] [address] Lymphocytes (Bld) [#/Vol] 1.4 10*3/uL Normal 1.0-3.5 [facility] Comment on above: Performed By: #### C BCA, BMP ####[facility] ([id number])[address] [address], [place] [address] Lymphocytes/100 WBC (Bld) 23.8 % Normal [facility] Comment on above: Performed By: #### C BCA, BMP ####[facility] ([id number])[address], [place] [address] MCH (RBC) [Entitic mass] 30.5 pg Normal 27-34 [facility] Comment on above: Performed By: #### C BCA, BMP ####[facility] ([id number])[address] [address], [place] [address] MCHC (RBC) [Mass/Vol] 34.0 g/dL Normal 32-36 [facility] Comment on above: Performed By: #### C BCA, BMP ####[facility] ([id number])[address] [address], [place] [address] MCV (RBC) [Entitic vol] 90 fL Normal 80-100 [facility] Comment on above: Performed By: #### C BCA, BMP ####[facility] ([id number])[address] [address], [place] [address] Monocytes (Bld) [#/Vol] 0.7 10*3/uL Normal 0-0.9 [facility] Comment on above: Performed By: #### C BCA, BMP ####[facility] ([id number])[address] [address] [place] [address] Monocytes/100 WBC (Bld) 12.7 % Normal [facility] Comment on above: Performed By: #### C BCA, BMP ####[facility] ([id number])[address] [address] [place] [address] Neutrophils/100 WBC (Bld) 60.9 % Normal [facility] Comment on above: Performed By: #### C BCA, BMP ####[facility] ([id number])[address] [address], [place] [address] Platelet mean volume (Bld) [Entitic vol] 8.0 fL Normal 7-12 [facility] Comment on above: Performed By: #### C AGUILA, BMP ####[facility] ([id number])[address] [address] [place] [address], [place] [address] Platelets (Bld) [#/Vol] 135 10*3/uL Low 150-450 [facility] Comment on above: Performed By: #### C AGUILA, BMP ####[facility] ([id number])[address] [address], [place] [address] RBC COUNT 3.07 X10E12/L Low 3.80-5.20 [facility] Comment on above: Performed By: #### C AGUILA, BMP ####[facility] ([id number])[address] [address] [place] [address] WBC (Bld) [#/Vol] 5.9 10*3/uL Normal 4.0-11.[address] [facility] Comment on above: Performed By: #### C AGUILA, BMP ####[facility] ([id number])[address] [place] [address] HGB AND HCTon 07-26-2024 Hematocrit (Bld) [Volume fraction] 30.0 % Low 35-47 [facility] Comment on above: Performed By: #### H H ####[facility] ([id number])[address] [address] [place] [address], [place] [address] Hemoglobin (Bld) [Mass/Vol] 10.3 g/dL Low 11.7-15.5 [facility] Comment on above: Performed By: #### H H ####[facility] ([id number])[address] [address] [address] BASIC METABOLIC PANLon 07-25 Anion gap [Moles/Vol] 7 mmol/L Normal 5-15 [facility] Comment on above: Performed By: #### C BCA, BMP ####[facility] ([id number])[address] [address] [place] [address] Calcium [Mass/Vol] 8.3 mg/dL Low 8.5-10.[address] [facility] Comment on above: Performed By: #### C BCA, BMP ####[facility] ([id number])[address] [address] Chloride [Moles/Vol] 106 mmol/L Normal 98-109 [facility] Comment on above: Performed By: #### C BCA, BMP ####[facility] ([id number])[address] [address] CO2 [Moles/Vol] 26 mmol/L Normal 22-32 [facility] Comment on above: Performed By: #### C BCA, BMP ####[facility] ([id number])[address] [address] Creatinine [Mass/Vol] 0.45 mg/dL Normal 0.40-1.00 [facility] Comment on above: Result Comment: METH OD TRACEABLE TO IDMS STANDARD Performed By: #### C BCA, BMP ####[facility] ([id number])[address] [address] eGFR (CKD-EPI) NON-RACE DEPENDENT >90 Normal >59 [facility] Comment on above: Result Comment: Reported eGFR is based on the CKD-EPI 2020 equation that does not use a race coefficient. Performed By: #### C BCA, BMP ####[facility] ([id number])[address] [address] Glucose [Mass/Vol] 131 mg/dL High 65-[address] [facility] Comment on above: Performed By: #### C BCA, BMP ####[facility] ([id number])[address], [place] [address] Potassium [Moles/Vol] 4.2 mmol/L Normal 3.5-5.0 [facility] Comment on above: Performed By: #### C AGUILA, BMP ####[facility] ([id number])[address] [address] Sodium [Moles/Vol] 139 mmol/L Normal 134-[address] [facility] Comment on above: Performed By: #### C AGUILA, BMP ####[facility] ([id number])[address], [place] [address] Urea nitrogen [Mass/Vol] 9 mg/dL Normal 5-27 [facility] Comment on above: Performed By: #### C AGUILA, BMP ####[facility] ([id number])[address], [address] [place] [address] CBC AND AUTO DIFFon 07-25- 24 ABSOLUTE BASOPHIL 0.0 X10E9/L Normal 0.0-0.[address] [facility] Comment on above: Performed By: #### Jori SHEEHAN, BMP ####[facility] ([id number])[address] [address] ABSOLUTE NEUTROPHIL 6.6 X10E9/L Normal 1.5-6.6 [facility] Comment on above: Performed By: #### Jori SHEEHAN, BMP ####[facility] ([id number])[address], [place] [address] Basophils/100 WBC (Bld) 0.1 % Normal [facility] Comment on above: Performed By: #### Jori SHEEHAN, BMP ####[facility] ([id number])[address] [address] Eosinophils (Bld) [#/Vol] 0.0 10*3/uL Normal 0.0-0.4 [facility] Comment on above: Performed By: #### C BCA, BMP ####[facility] ([id number])[address] [address] [place] [address] Eosinophils/100 WBC (Bld) 0.0 % Normal [facility] Comment on above: Performed By: #### C BCA, BMP ####[facility] ([id number])[address] [address] [place] [address] Erythrocyte distribution width (RBC) [Ratio] 13.8 % Normal 11.5-15.0 [facility] Comment on above: Performed By: #### C AGUILA, BMP ####[facility] ([id number])[address] [address] [place] [address] Hematocrit (Bld) [Volume fraction] 31.5 % Low 35-47 [facility] Comment on above: Performed By: #### C AGUILA, BMP ####[facility] ([id number])[address] [address] [place] [address] Hemoglobin (Bld) [Mass/Vol] 10.8 g/dL Low 11.7-15.5 [facility] Comment on above: Performed By: #### C AGUILA, BMP ####[facility] ([id number])[address] [address] [place] [address] Lymphocytes (Bld) [#/Vol] 0.9 10*3/uL Low 1.0-3.5 [facility] Comment on above: Performed By: #### C BCA, BMP ####[facility] ([id number])[address] [address] Lymphocytes/100 WBC (Bld) 10.9 % Normal [facility] Comment on above: Performed By: #### C BCA, BMP ####[facility] ([id number])[address] [address] [place] [address] MCH (RBC) [Entitic mass] 30.3 pg Normal 27-34 [facility] Comment on above: Performed By: #### C AGUILA, BMP ####[facility] ([id number])[address], [place] [address] MCHC (RBC) [Mass/Vol] 34.4 g/dL Normal 32-36 [facility] Comment on above: Performed By: #### C BCA, BMP ####[facility] ([id number])[address], [place] [address] MCV (RBC) [Entitic vol] 88 fL Normal 80-100 [facility] Comment on above: Performed By: #### C AGUILA, BMP ####[facility] ([id number])[address] [address], [place] [address] Monocytes (Bld) [#/Vol] 0.5 10*3/uL Normal 0-0.9 [facility] Comment on above: Performed By: #### C AGUILA, BMP ####[facility] ([id number])[address] [place] [id number] Monocytes/100 WBC (Bld) 6.2 % Normal [facility] Comment on above: Performed By: #### C BCA, BMP ####[facility] ([id number])[address] [address], [place] [address] Neutrophils/100 WBC (Bld) 82.8 % Normal [facility] Comment on above: Performed By: #### C BCA, BMP ####[facility] ([id number])[address] [address], [place] [address] Platelet mean volume (Bld) [Entitic vol] 7.9 fL Normal 7-12 [facility] Comment on above: Performed By: #### C BCA, BMP ####[facility] ([id number])[address] [place] [address] Platelets (Bld) [#/Vol] 167 10*3/uL Normal 150-450 [facility] Comment on above: Performed By: #### C AGUILA, BMP ####[facility] ([id number])[address]129 [address], [place] [address] RBC COUNT 3.58 X10E12/L Low 3.80-5.20 [facility] Comment on above: Performed By: #### C AGUILA, BMP ####[facility] ([id number])[address], [address] [address] WBC (Bld) [#/Vol] 7.9 10*3/uL Normal 4.0-11.[address] [facility] Comment on above: Performed By: #### C AGUILA, BMP ####[facility] ([id number])[address], [address], [place] [address] HGB AND HCTon 07-25-2024 Hematocrit (Bld) [Volume fraction] 30.3 % Low 35-47 [facility] Comment on above: Performed By: #### H H ####[facility] ([id number])[address], [address], [place] [address] Hemoglobin (Bld) [Mass/Vol] 10.5 g/dL Low 11.7-15.5 [facility] Comment on above: Performed By: #### H H ####[facility] ([id number])[address], [address] [address] Hematocrit (Bld) [Volume fraction] 32.4 % Low 35-47 [facility] Comment on above: Performed By: #### H H ####[facility] ([id number])[address], [address], [place] [address] Hemoglobin (Bld) [Mass/Vol] 11.0 g/dL Low 11.7-15.5 [facility] Comment on above: Performed By: #### H H ####[facility] ([id number])[address], [address], [place] [address] AMYLASEon 07-24-2024 Amylase [Catalytic activity/Vol] 58 U/L Normal 28-100 [facility] Comment on above: Performed By: #### C BCA, 84345-0, PINR, 98398-7, 1798-8, CMP, 3040-3, 5643-2 #### [facility] ([id number]) [address], [address] [address] CBC AND AUTO DIFFon 07-24-20 ABSOLUTE BASOPHIL 0.0 X10E9/L Normal 0.0-0.[address] [facility] Comment on above: Performed By: #### C BCA, 32209-4, PINR, 81302-0, 1798-8, CMP, 3040-3, 5643-2 #### [facility] ([id number]) [address] [address] ABSOLUTE NEUTROPHIL 7.7 X10E9/L High 1.5-6.6 [facility] Comment on above: Performed By: #### C BCA, 52350-5, PINR, 82139-5, 1798-8, CMP, 3040-3, 5643-2 #### [facility] ([id number]) [address] [address] Basophils/100 WBC (Bld) 0.5 % Normal [facility] Comment on above: Performed By: #### C BCA, 42562-5, PINR, 18717-0, 1798-8, CMP, 3040-3, 5643-2 #### [facility] ([id number]) [address] [address] [place] [address] Eosinophils (Bld) [#/Vol] 0.0 10*3/uL Normal 0.0-0.4 [facility] Comment on above: Performed By: #### C BCA, 26598-7, PINR, 46674-9, 1798-8, CMP, 3040-3, 5643-2 #### [facility] ([id number]) [address], [address] [place] [address] Eosinophils/100 WBC (Bld) 0.2 % Normal [facility] Comment on above: Performed By: #### C BCA, 44658-1, PINR, 75946-3, 1798-8, CMP, 3040-3, 5643-2 #### [facility] ([id number]) [address], [facility] [address] [place] [address] Erythrocyte distribution width (RBC) [Ratio] 13.7 % Normal 11.5-15.0 [facility] Comment on above: Performed By: #### C BCA, 94427-5, PINR, 97241-6, 1797-8, CMP, 3040-3, 5643-2 #### [facility] ([id number]) [address], [address] [place] [address] Hematocrit (Bld) [Volume fraction] 33.9 % Low 35-47 [facility] Comment on above: Performed By: #### C BCA, 29077-6, PINR, 96376-8, 1798-8, CMP, 3040-3, 5643-2 #### [facility] ([id number]) [address], [address] [place] [address] Hemoglobin (Bld) [Mass/Vol] 11.6 g/dL Low 11.7-15.5 [facility] Comment on above: Performed By: #### C BCA, 62133-5, PINR, 25782-7, 1798-8, CMP, 3040-3, 5643-2 #### [facility] ([id number]) [address], [address] [place] [address] Lymphocytes (Bld) [#/Vol] 1.5 10*3/uL Normal 1.0-3.5 [facility] Comment on above: Performed By: #### C BCA, 06320-3, PINR, 82933-5, 1798-8, CMP, 3040-3, 5643-2 #### [facility] ([id number]) [address], [address] [place] [address] Lymphocytes/100 WBC (Bld) 14.5 % Normal [facility] Comment on above: Performed By: #### C BCA, 81747-5, PINR, 59816-4, 8-8, CMP, 3040-3, 5643-2 #### [facility] ([id number]) [address] [address] MCH (RBC) [Entitic mass] 30.5 pg Normal 27-34 [facility] Comment on above: Performed By: #### C BCA, 42354-7, PINR, 52961-2, 1797-8, CMP, 3040-3, 5643-2 #### [facility] ([id number]) [address], [facility] [address] [place] [address] MCHC (RBC) [Mass/Vol] 34.3 g/dL Normal 32-36 [facility] Comment on above: Performed By: #### C BCA, 48016-5, PINR, 04958-0, 1797-8, CMP, 3040-3, 5643-2 #### [facility] ([id number]) [address], [address] [place] [address] MCV (RBC) [Entitic vol] 89 fL Normal 80-100 [facility] Comment on above: Performed By: #### C BCA, 11466-5, PINR, 47973-1, 1798-8, CMP, 3040-3, 5643-2 #### [facility] ([id number]) [address], [facility] [address] [place] [address] Monocytes (Bld) [#/Vol] 0.9 10*3/uL Normal 0-0.9 [facility] Comment on above: Performed By: #### C BCA, 35844-7, PINR, 02791-5, 1798-8, CMP, 3040-3, 5643-2 #### [facility] ([id number]) [address] [address] Monocytes/100 WBC (Bld) 8.7 % Normal [facility] Comment on above: Performed By: #### C BCA, 42332-2, PINR, 53365-9, 1798-8, CMP, 3040-3, 5643-2 #### [facility] ([id number]) [address] [address] Neutrophils/100 WBC (Bld) 76.1 % Normal [facility] Comment on above: Performed By: #### C BCA, 37561-0, PINR, 81634-6, 1798-8, CMP, 3040-3, 5643-2 #### [facility] ([id number]) [address] [address] Platelet mean volume (Bld) [Entitic vol] 8.1 fL Normal 7-12 [facility] Comment on above: Performed By: #### C BCA, 15896-1, PINR, 10058-5, 1798-8, CMP, 3040-3, 5643-2 #### [facility] ([id number]) [address] [address] Platelets (Bld) [#/Vol] 176 10*3/uL Normal 150-450 [facility] Comment on above: Performed By: #### C BCA, 95395-0, PINR, 25952-5, 1798-8, CMP, 3040-3, 5643-2 #### [facility] ([id number]) [address], [address] [place] [address] RBC COUNT 3.81 X10E12/L Normal 3.80-5.20 [facility] Comment on above: Performed By: #### C BCA, 82567-2, PINR, 45846-4, 1798-8, CMP, 3040-3, 5643-2 #### [facility] ([id number]) [address], [address] [address] WBC (Bld) [#/Vol] 10.2 10*3/uL Normal 4.0-11.0 [facility] Comment on above: Performed By: #### C BCA, 97267-1, PINR, 36079-0, 1798-8, CMP, 3040-3, 5643-2 #### [facility] ([id number]) [address], [address] [place] [address] COMPREHENSIVE METABOLIC PANE [facility] 07-24-2024 Albumin [Mass/Vol] 3.7 g/dL Normal 3.2-5.[address] [facility] Comment on above: Performed By: #### C BCA, 73220-3, PINR, 53623-7, 1798-8, CMP, 3040-3, 5643-2 #### [facility] ([id number]) [address], [address] [address] ALP [Catalytic activity/Vol] 58 U/L Normal 39-130 [facility] Comment on above: Performed By: #### C BCA, 98012-6, PINR, 59235-6, 1798-8, CMP, 3040-3, 5643-2 #### [facility] ([id number]) [address], [address] [place] [address] ALT [Catalytic activity/Vol] 13 U/L Normal 0-31 [facility] Comment on above: Performed By: #### C BCA, 97807-4, PINR, 68106-9, 1798-8, CMP, 3040-3, 5643-2 #### [facility] ([id number]) [address], [address] [place] [address] Anion gap [Moles/Vol] 9 mmol/L Normal 5-15 [facility] Comment on above: Performed By: #### C BCA, 19667-4, PINR, 56288-2, 1798-8, CMP, 3040-3, 5643-2 #### [facility] ([id number]) [address], [address] [place] [address] AST [Catalytic activity/Vol] 21 U/L Normal 0-41 [facility] Comment on above: Performed By: #### C BCA, 96780-7, PINR, 64288-5, 1798-8, CMP, 3040-3, 5643-2 #### [facility] ([id number]) [address], [address] [place] [address] Bilirubin [Mass/Vol] 1.1 mg/dL Normal 0.3-1.2 [facility] Comment on above: Performed By: #### C BCA, 26671-9, PINR, 98171-9, 1798-8, CMP, 3040-3, 5643-2 #### [facility] ([id number]) [address], [address] [place] [address] Calcium [Mass/Vol] 8.5 mg/dL Normal 8.5-10.[address] [facility] Comment on above: Performed By: #### C BCA, 17699-2, PINR, 00492-4, 1798-8, CMP, 3040-3, 5643-2 #### [facility] ([id number]) [address], [address] [place] [address] Chloride [Moles/Vol] 104 mmol/L Normal 98-109 [facility] Comment on above: Performed By: #### C BCA, 50318-9, PINR, 67565-9, 1798-8, CMP, 3040-3, 5643-2 #### [facility] ([id number]) [address], [address] [place] [address] CO2 [Moles/Vol] 24 mmol/L Normal 22-32 [facility] Comment on above: Performed By: #### C BCA, 07558-1, PINR, 99052-1, 1798-8, CMP, 3040-3, 5643-2 #### [facility] ([id number]) [address], [address] [place] [address] Creatinine [Mass/Vol] 0.54 mg/dL Normal 0.40-1.00 [facility] Comment on above: Result Comment: METH OD TRACEABLE TO IDMS STANDARD Performed By: #### C BCA, 32356-3, PINR, 39849-0, 1797-8, CMP, 3040-3, 5643-2 #### [facility] ([id number]) [address], [address] [place] [address] eGFR (CKD-EPI) NON-RACE DEPENDENT >90 Normal >59 [facility] Comment on above: Result Comment: Reported eGFR is based on the CKD-EPI 2020 equation that does not use a race coefficient. Performed By: #### C BCA, 50599-8, PINR, 56465-9, 1797-8, CMP, 3040-3, 5643-2 #### [facility] ([id number]) [address], [address] [place] [address] Glucose [Mass/Vol] 132 mg/dL High 65-[address] [facility] Comment on above: Performed By: #### C BCA, 74511-5, PINR, 83522-8, 1798-8, CMP, 3040-3, 5643-2 #### [facility] ([id number]) [address], [address] [place] [address] Potassium [Moles/Vol] 4.2 mmol/L Normal 3.5-5.0 [facility] Comment on above: Performed By: #### C BCA, 85656-9, PINR, 91313-7, 1798-8, CMP, 3040-3, 5643-2 #### [facility] ([id number]) [address], [address] [place] [address] Protein [Mass/Vol] 5.9 g/dL Low 6.0-8.[address] [facility] Comment on above: Performed By: #### C BCA, 29307-6, PINR, 09292-7, 1798-8, CMP, 3040-3, 5643-2 #### [facility] ([id number]) [address], [address] [address] Sodium [Moles/Vol] 137 mmol/L Normal 134-[address] [facility] Comment on above: Performed By: #### C BCA, 28984-3, PINR, 74828-3, 1798-8, CMP, 3040-3, 5643-2 #### [facility] ([id number]) [address], [address] [address] Urea nitrogen [Mass/Vol] 10 mg/dL Normal 5-27 [facility] Comment on above: Performed By: #### C BCA, 48626-1, PINR, 40969-2, 1798-8, CMP, 3040-3, 5643-2 #### [facility] ([id number]) [address], [address] [place] [address] BRAIN WO CONTon 4 CT BRAIN WO CONT CT BRAIN WO [...] Gulshan Huff on 07/24/2024 7:31 PM Normal [facility] CT CERVICAL SPINE WO CONTon 07-24-2024 CT [...] Chatman MD on 07/24/2024 7:29 PM Normal [facility] CT CHEST W CONTon 07-24-2024 CT CHEST [...] Velazquez MD on 07/24/2024 7:28 PM Normal [facility] CT CTA ABD AND PELVISon 11- CT CTA ABD AND PELVIS CT CTA [...] Lerner MD on 07/24/2024 7:41 PM Normal [facility] DRUG SCREEN, URINEon 024 AMPHETAMINE/METHAMP Negative Normal NEG [facility] Comment on above: Result Comment: AMPH /METH screening cut off = 1000 ng/mL Performed By: #### D TREVINO ####[facility] ([id number])[address], [address] [place] [address] BARBITURATES Negative Normal NEG [facility] Comment on above: Result Comment: Kalyani iturates screening cut off value = 200 ng/mL Performed By: #### D TREVINO ####[facility] ([id number])[address], [address] [place] [address] BENZODIAZEPINES Negative Normal [facility] Comment on above: Result Comment: Andrea odiazepines screening cut off value = 200 ng/mL Performed By: #### D TREVINO ####[facility] ([id number])[address], [address] [place] [address] CANNABINOIDS Negative Normal [facility] Comment on above: Result Comment: Nathalia abinoids/THC screening cut off value = 50 ng/mL Performed By: #### D TREVINO ####[facility] ([id number])[address], [address] [place] [address] COCAINE METABOLITE Negative Normal NEG [facility] Comment on above: Result Comment: Coca ine screening cut off value = 300 ng/mL Performed By: #### D TREVINO ####[facility] ([id number])[address], [address] [place] [address] ECSTASY Negative Normal [facility] Comment on above: Result Comment: Ecst asy screening cut off value = 500 ng/mL This report is intended for use in clinical monitoring or management of patients. Performed By: #### D TREVINO ####[facility] ([id number])[address], [address], [place] [address] METHADONE Negative Normal NEG [facility] Comment on above: Result Comment: Meth adone screening cut off value = 300 ng/mL. Performed By: #### D TREVINO ####[facility] ([id number])[address], [address], [place] [address] OPIATES Positive Abnormal NEG [facility] Comment on above: Result Comment: Conf irmation available upon request. Opiates screening cut off value = 300 ng/mL NOTE: This test is used for the detection of codeine, hydrocodone (>1000 ng/mL), morphine and hydromorphone (>900 ng/mL) in urine. Performed By: #### D TREVINO ####[facility] ([id number])[address], [address] [place] [address] OXYCODONE Negative Normal NEG [facility] Comment on above: Result Comment: Oxyc odone screening cut off value = 300 ng/mL NOTE: This test is used for the detection of oxycodone and oxymorphone in urine. Performed By: #### D TREVINO ####[facility] ([id number])[address], [address] [place] [address] PHENCYCLIDINE Negative Normal NEG [facility] Comment on above: Result Comment: Phen cyclidine screening cut off value = 25 ng/mL Performed By: #### D TREVINO ####[facility] ([id number])[address], [address], [place] [address] ETHANOLon 07-24-2024 Ethanol [Mass/Vol] mg/dL Normal 0.00-0.[address] [facility] Comment on above: Result Comment: This report is intended for use in clinical monitoring or management of patients. Performed By: #### C BCA, 88025-1, PINR, 13337-7, 1798-8, CMP, 3040-3, 5643-2 ####[facility] ([id number])[address], [place] [address] Fibrinogen Coagulation.deriv ed (PPP) [Mass/Vol]on 07-24-2024 FIBRINOGEN 178 mg/dL Low 190-480 [facility] Comment on above: Performed By: #### C BCA, 37398-4, PINR, 49191-2, 1798-8, CMP, 3040-3, 5643-2 #### [facility] ([id number]) [address] [place] [address] Glucose Glucometer (BldC) [M ass/Vol]on 07-24-2024 Glucose [Mass/Vol] 133 mg/dL High 65-[address] [facility] LIPASEon 07-24-2024 Lipase [Catalytic activity/Vol] 19 U/L Normal 11-82 [facility] Comment on above: Performed By: #### C BCA, 62952-6, PINR, 50850-8, 1798-8, CMP, 3040-3, 5643-2 #### [facility] ([id number]) [address], [address] [place] [address] POC CHEM7 W/ HCTon 4 Chloride [Moles/Vol] 100 mmol/L Normal 98-109 [facility] Comment on above: Performed By: #### I 8XCA #### [facility] ([id number]) [address] [place] [address] CO2 [Moles/Vol] 27 mmol/L Normal 22-32 [facility] Comment on above: Performed By: #### I 8XCA #### [facility] ([id number]) [address] [place] [address] Creatinine [Mass/Vol] 0.5 mg/dL Normal 0.4-1.0 [facility] Comment on above: Result Comment: METH OD TRACEABLE TO IDMS STANDARD Performed By: #### I 8XCA #### [facility] ([id number]) [address] [place] [address] eGFR (CKD-EPI) NON-RACE DEPENDENT >90 Normal >59 [facility] Comment on above: Result Comment: Reported eGFR is based on the CKD-EPI 2020 equation that does not use a race coefficient. Performed By: #### I 8XCA #### [facility] ([id number]) [address] [place] [address] Glucose [Mass/Vol] 130 mg/dL High 65-[address] [facility] Comment on above: Performed By: #### I 8XCA #### [facility] ([id number]) [address] [place] [address] Hematocrit (Bld) [Volume fraction] 34 % Low 35-47 [facility] Comment on above: Performed By: #### I 8XCA #### [facility] ([id number]) [address] [place] [address] Potassium [Moles/Vol] 4.2 mmol/L Normal 3.5-5.0 [facility] Comment on above: Performed By: #### I 8XCA #### [facility] ([id number]) [address] [place] [address] Sodium [Moles/Vol] 138 mmol/L Normal 134-[address] [facility] Comment on above: Performed By: #### I 8XCA #### [facility] ([id number]) [address] [place] [address] Urea nitrogen [Mass/Vol] 10 mg/dL Normal 6-27 [facility] Comment on above: Performed By: #### I 8XCA #### [facility] ([id number]) [address] [place] [address] PROTIME AND INRon 07-24-2024 INR Coag (PPP) [Relative time] 1.0 {INR} Normal 0.8-1.1 [facility] Comment on above: Performed By: #### C BCA, 64616-4, PINR, 27188-9, 1798-8, CMP, 3040-3, 5643-2 #### [facility] ([id number]) [address] [place] [address] PT Coag (PPP) [Time] 12.2 s Normal 9.8-13.2 [facility] Comment on above: Performed By: #### C BCA, 62905-2, PINR, 30674-3, 1798-8, CMP, 3040-3, 5643-2 #### [facility] ([id number]) [address] [place] [address] URINALYSISon 07-24-2024 Bilirubin Ql (U) Negative Normal NEG [facility] Comment on above: Performed By: #### U A ####[facility] ([id number])[address], [address] [place] [address] BLOOD/HGB Negative Normal NEG [facility] Comment on above: Performed By: #### U A ####[facility] ([id number])[address] [address] [place] [address] Color (U) YELLOW Normal YELLOW [facility] Comment on above: Performed By: #### U A ####[facility] ([id number])[address], [place] [address] Glucose Ql (U) Negative Normal NEG [facility] Comment on above: Performed By: #### U A ####[facility] ([id number])[address], [place] [address] Ketones Ql (U) Negative Normal NEG [facility] Comment on above: Performed By: #### U A ####[facility] ([id number])[address], [address], [place] [address] Leukocyte esterase Test strip Ql (U) Negative Normal NEG [facility] Comment on above: Performed By: #### U A ####[facility] ([id number])[address] [address], [place] [address] Nitrite Ql (U) Negative Normal NEG [facility] Comment on above: Performed By: #### U A ####[facility] ([id number])[address] [address], [place] [address] pH (U) 6.5 [pH] Normal 5.0-8.5 [facility] Comment on above: Performed By: #### U A ####[facility] ([id number])[address] [address] Protein Ql (U) Negative Normal NEG [facility] Comment on above: Performed By: #### U A ####[facility] ([id number])[address] [address] [place] [address] Specific gravity (U) [Rel density] 1.025 Normal 1.003-1.035 [facility] Comment on above: Performed By: #### U A ####[facility] ([id number])[address] [address] TURBIDITY CLEAR Normal CLEAR [facility] Comment on above: Performed By: #### U A ####[facility] ([id number])[address] [address] Urinalysis dipstick W Reflex Microscopic panel (U) URINE RECEIVED WITHOUT PRESERVATIVE-DELAYS IN TRANSPORT MAY AFFECT RESULTS.INTERPRET WITH CAUTION AND CLINICAL CORRELATION IS RECOMMENDED. Normal [facility] Comment on above: Performed By: #### U A ####[facility] ([id number])[address] [address], [place] [address] Urobilinogen (U) [Mass/Vol] mg/dL Normal <1.1 [facility] Comment on above: Performed By: #### U A ####[facility] ([id number])[address] [facility], [place] [address] XR CHEST 1 VWon 07-24-2024 XR CHEST [...] Doshi MD on 07/24/2024 7:08 PM Normal [facility] XR PELVIS 1 OR 2 VWSon 07-24 XR PELVIS 1 OR 2 VWS XR PELVIS 1 OR 2 VW S XR PELVIS 1 OR 2 VWS Clinical [...] Doshi MD on 07/24/2024 7:08 PM Normal [facility] aPTT Coag (PPP) [Time]on aPTT Coag (Bld) [Time] 29 s Normal 26-37 [facility] Comment on above: Performed By: #### C BCA, 60555-0, PINR, 94198-0, 1798-8, CMP, 3040-3, 5643-2 #### [facility] ([id number]) [address], [address] [place] [address] CBC AUTO DIFFon 07-02-2022 BASO # 0.0 103/ul Normal 0.0-0.[address] [facility] Comment on above: Performed By: #### C BC #### [facility] [address] [address] [address] Miranda Anderson Basophils/100 WBC (Bld) 0.3 % Normal 0.2-2.[address] [facility] Comment on above: Performed By: #### C BC #### [facility] [address] [address] [address] Miranda Anderson EO # 0.1 103/ul Normal 0.0-0.7 [facility] Comment on above: Performed By: #### C BC #### [facility] [address] [address] [address] Miranda Anderson Eosinophils/100 WBC (Bld) 2.1 % Normal 0.9-7.0 [facility] Comment on above: Performed By: #### C BC #### [facility] [address] [place] [address] Dr. Miranda Anderson Erythrocyte distribution width (RBC) [Ratio] 14.3 % Normal 11.0-15.[address] [facility] Comment on above: Performed By: #### C BC #### [facility] [address] [place] [address] Dr. Miranda Anderson Hematocrit (Bld) [Volume fraction] 43.3 % Normal 36.0-48.[address] [facility] Comment on above: Performed By: #### C BC #### [facility] [address] [place] [address] Dr. Miranda Anderson Hemoglobin (Bld) [Mass/Vol] 13.5 g/dL Normal 12.0-16.0 [facility] Comment on above: Performed By: #### C BC #### [facility] [address] [place] [address] Dr. Miranda Anderson IG # 0.01 10e3/ul Normal 0.00-0.03 [facility] Comment on above: Performed By: #### C BC #### [facility] [address] [place] [address] Dr. Miranda Anderson IG % 0.2 % Normal 0.0-0.5 [facility] Comment on above: Performed By: #### C BC #### [facility] [address] [place] [address] Dr. Miranda Anderson LYMPH # 3.3 103/ul Normal 1.2-3.8 [facility] Comment on above: Performed By: #### C BC #### [facility] [address] [place] [address] Dr. Miranda Anderson Lymphocytes/100 WBC (Bld) 51.6 % Normal 20.5-60.[address] [facility] Comment on above: Performed By: #### C BC #### [facility] [address] [place] [address] Dr. Miranda Anderson MANUAL DIFF REQ NO Normal [facility] Comment on above: Performed By: #### C BC #### [facility] [address] [place] [address] Dr. Miranda Anderson MCH (RBC) [Entitic mass] 28.1 pg Normal 26.7-34.0 [facility] Comment on above: Performed By: #### C BC #### [facility] [address] [place] [address] Dr. Miranda Anderson MCHC (RBC) [Mass/Vol] 31.2 g/dL Normal 29.9-35.2 [facility] Comment on above: Performed By: #### C BC #### [facility] [address] [place] [address] Dr. Miranda Anderson MCV (RBC) [Entitic vol] 90.2 fL Normal 81.0-99.0 [facility] Comment on above: Performed By: #### C BC #### [facility] [address] [place] [address] Dr. Miranda Anderson MONO # 0.6 103/ul Normal 0.3-0.8 [facility] Comment on above: Performed By: #### C BC #### [facility] [address] [place] [address] Dr. Miranda Anderson Monocytes/100 WBC (Bld) 9.4 % Normal 1.7-12.0 [facility] Comment on above: Performed By: #### C BC #### [facility] [address] [place] [address] Dr. Miranda Anderson NEUT # 2.3 103/ul Normal 1.4-6.[address] [facility] Comment on above: Performed By: #### C BC #### [facility] [address] [place] [address] Dr. Miranda Anderson Neutrophils/100 WBC (Bld) 36.4 % Critically low 43.0-75.[address] [facility] Comment on above: Performed By: #### C BC #### [facility] [address] [place] [address] Dr. Miranda Anderson Platelet mean volume (Bld) [Entitic vol] 12.3 fL Normal 9.5-13.[address] [facility] Comment on above: Performed By: #### C BC #### [facility] [address] [place] [address] Dr. Miranda Anderson PLT 241 103/ul Normal 150-[address] [facility] Comment on above: Performed By: #### C BC #### [facility] [address] [place] [address] Dr. Miranda Anderson RBC 4.80 106/ul Normal 4.20-5.[address] [facility] Comment on above: Performed By: #### C BC #### [facility] [address] [place] [address] Dr. Miranda Anderson WBC 6.3 103/ul Normal 4.0-11.[address] [facility] Comment on above: Performed By: #### C BC #### [facility] [address] [place] [address] Dr. Miranda Anderson LIPID PROFILEon 07-02-2022 CHOL-HDL RATIO NORM SEE BELOW Normal [facility] Comment on above: Result Comment: 3.3 - 4.4 LOW RISK 4.4 - 7.1 AVERAGE RISK 7.1 - 11.0 MODERATE RISK >11.0 HIGH RISK Performed By: #### C MP, LIPID #### [facility] [address] [place] [address] Dr. Miranda Anderson Cholesterol [Mass/Vol] 142 mg/dL Normal <=200 [facility] Comment on above: Performed By: #### C MP, LIPID #### [facility] [address] [address] [address] Miranda Anderson Cholesterol in HDL [Mass/Vol] 71 mg/dL Critically high 40-[address] [facility] Comment on above: Performed By: #### C MP, LIPID #### [facility] [address] [address] [address] Miranda Anderson Cholesterol in LDL [Mass/Vol] 61.2 mg/dL Normal [facility] Comment on above: Performed By: #### C MP, LIPID #### [facility] [address] [address] [address] Miranda Anderson Cholesterol.total/Ch olesterol in HDL [Mass ratio] 2.0 {ratio} Normal [facility] Comment on above: Performed By: #### C MP, LIPID #### [facility] [address] [address] [address] Miranda Anderson HDL NORMAL > or = 60 mg/dl - LO W CARDIOVASCULAR RISK <40 mg/dl - HIGH CARDIOVASCULAR RISK Normal [facility] Comment on above: Performed By: #### C MP, LIPID #### [facility] [address] [address] [address] Miranda Anderson LDL CALC NORMAL SEE BELOW Normal [facility] Comment on above: Result Comment: <100 mg/dl OPTIMAL 100 - 129 mg/dl NEAR OR ABOVE OPTIMAL 130 - 159 mg/dl BORDERLINE HIGH 160 - 189 mg/dl HIGH >190 mg/dl VERY HIGH Performed By: #### C MP, LIPID #### [facility] [address] [address] [address] Miranda Anderson Triglyceride [Mass/Vol] 49 mg/dL Normal <=150 [facility] Comment on above: Performed By: #### C MP, LIPID #### [facility] [address] [place] [address] Dr. Miranda Anderson VLDL CALC 9.8 mg/dL Normal [facility] Comment on above: Performed By: #### C MP, LIPID #### [facility] [address] [address] [address] Miranda Anderson PROF 14(COMP METB)on 022 Albumin [Mass/Vol] 3.5 g/dL Normal 3.4-5.0 [facility] Comment on above: Performed By: #### C MP, LIPID #### [facility] [address] [place] [address] Dr. Miranda Anderson Albumin/Globulin [Mass ratio] 1.0 {ratio} Normal [facility] Comment on above: Performed By: #### C MP, LIPID #### [facility] [address] [address] [address] Miranda Anderson ALP [Catalytic activity/Vol] 71 U/L Normal 46-[address] [facility] Comment on above: Performed By: #### C MP, LIPID #### [facility] [address] [place] [address] Dr. Miranda Anderson ALT [Catalytic activity/Vol] 21 U/L Normal 14-[address] [facility] Comment on above: Performed By: #### C MP, LIPID #### [facility] [address] [place] [address] Dr. Miranda Anderson Anion gap [Moles/Vol] 7.3 mmol/L Normal [facility] Comment on above: Performed By: #### C MP, LIPID #### [facility] [address] [place] [address] Dr. Miranda Anderson AST [Catalytic activity/Vol] 21 U/L Normal 15-[address] [facility] Comment on above: Performed By: #### C MP, LIPID #### [facility] [address] [place] [address] Dr. Miranda Anderson Bilirubin [Mass/Vol] 0.4 mg/dL Normal 0.2-1.[address] [facility] Comment on above: Performed By: #### C MP, LIPID #### [facility] [address] [place] [address] Dr. Miranda Anderson Calcium [Mass/Vol] 8.8 mg/dL Normal 8.5-10.1 [facility] Comment on above: Performed By: #### C MP, LIPID #### [facility] [address] [place] [address] Dr. Miranda Anderson Chloride [Moles/Vol] 106 mmol/L Normal 98-[address] [facility] Comment on above: Performed By: #### C MP, LIPID #### [facility] [address] [address] [address] Miranda Anderson CO2 [Moles/Vol] 30.0 mmol/L Normal 21.0-32.0 [facility] Comment on above: Performed By: #### C MP, LIPID #### [facility] [address] [address] [address] Miranda Anderson Creatinine [Mass/Vol] 0.64 mg/dL Normal 0.55-1.[address] [facility] Comment on above: Performed By: #### C MP, LIPID #### [facility] [address] [place] [address] Dr. Miranda Anderson EGFR-AF HAITIAN >60 Normal >=60 [facility] Comment on above: Performed By: #### C MP, LIPID #### [facility] [address] [address] [address] Miranda Anderson EGFR-NON AF HAITIAN >60 Normal >=[address] [facility] Comment on above: Performed By: #### C MP, LIPID #### [facility] [address] [place] [address] Dr. Miranda Anderson Globulin (S) [Mass/Vol] 3.4 g/dL Normal [facility] Comment on above: Performed By: #### C MP, LIPID #### [facility] [address] [address] [address] Miranda Anderson Glucose [Mass/Vol] 91 mg/dL Normal 74-106 [facility] Comment on above: Performed By: #### C MP, LIPID #### [facility] [address] [address] [address] Miranda Anderson Potassium [Moles/Vol] 4.3 mmol/L Normal 3.5-5.[address] [facility] Comment on above: Performed By: #### C MP, LIPID #### [facility] [address] [address] [address] Miranda Anderson Protein [Mass/Vol] 6.9 g/dL Normal 6.4-8.2 [facility] Comment on above: Performed By: #### C MP, LIPID #### [facility] [address] [address] [address] Miranda Anderson Sodium [Moles/Vol] 139 mmol/L Normal 136-145 [facility] Comment on above: Performed By: #### C MP, LIPID #### [facility] [address] [address] [address] Miranda Anderson Urea nitrogen [Mass/Vol] 12.0 mg/dL Normal 7.0-18.[address] [facility] Comment on above: Performed By: #### C MP, LIPID #### [facility] [address] [address] [address] Miranda Anderson Urea nitrogen/Creatinine [Mass ratio] 18.8 mg/mg Normal [facility] Comment on above: Performed By: #### C MP, LIPID #### [facility] [address] [address] [address] Miranda Anderson Vital Signs Date Time Vital Sign Value Performing Clinician Faci lity 12-13-2024 14:42-0400 Body height 162.6 cm José Manuel Grissom MD Work Phone: [facility] 12-13-2024 14:42-0400 Body mass index (BMI) [Ratio] 21.11 kg/m2 José Manuel Grissom MD Work Phone: [facility] 12-13-2024 14:42-0400 Body temperature 97.5 [degF] José Manuel Grissom MD Work Phone: [facility] 12-13-2024 14:42-0400 Body weight 55.79 kg José Manuel Grissom MD Work Phone: [facility] 12-13-2024 14:42-0400 Diastolic blood pressure 56 mm[Hg] José Manuel Grissom MD Work Phone: [facility] 12-13-2024 14:42-0400 Heart rate 85 /min José Manuel Grissom MD Work Phone: [facility] 12-13-2024 14:42-0400 Respiratory rate 22 /min José Manuel Grissom MD Work Phone: [facility] 12-13-2024 14:42-0400 SaO2% (BldA) [Mass fraction] 92 % José Manuel Grissom MD Work Phone: [facility] 12-13-2024 14:42-0400 Systolic blood pressure 130 mm[Hg] José Manuel Grissom MD Work Phone: [facility] 08-18-2024 10:46-0500 Body height 162.6 cm José Manuel Grissom MD Work Phone: [facility] 08-18-2024 10:46-0500 Body mass index (BMI) [Ratio] 21.63 kg/m2 José Manuel Grissom MD Work Phone: [facility] 08-18-2024 10:46-0500 Body temperature 97.81 [degF] José Manuel Grissom MD Work Phone: [facility] 08-18-2024 10:46-0500 Body weight 57.15 kg José Manuel Grissom MD Work Phone: [facility] 08-18-2024 10:46-0500 Diastolic blood pressure 58 mm[Hg] José Manuel Grissom MD Work Phone: [facility] 08-18-2024 10:46-0500 Heart rate 81 /min José Manuel Grissom MD Work Phone: [facility] 08-18-2024 10:46-0500 Respiratory rate 22 /min José Manuel Grissom MD Work Phone: [facility] 08-18-2024 10:46-0500 SaO2% (BldA) [Mass fraction] 97 % José Manuel Grissom MD Work Phone: [facility] 08-18-2024 10:46-0500 Systolic blood pressure 126 mm[Hg] José Manuel Grissom MD Work Phone: [facility] 06-21-2024 13:09-0400 Body height 162.6 cm José Manuel Grissom MD Work Phone: [facility] 06-21-2024 13:09-0400 Body mass index (BMI) [Ratio] 21.28 kg/m2 José Manuel Grissom MD Work Phone: [facility] 06-21-2024 13:09-0400 Body temperature 97.5 [degF] José Manuel Grissom MD Work Phone: [facility] 06-21-2024 13:09-0400 Body weight 56.25 kg José Manuel Grissom MD Work Phone: [facility] 06-21-2024 13:09-0400 Diastolic blood pressure 56 mm[Hg] José Manuel Grissom MD Work Phone: [facility] 06-21-2024 13:09-0400 Heart rate 70 /min José Manuel Grissom MD Work Phone: [facility] 06-21-2024 13:09-0400 Respiratory rate 20 /min José Manuel Grissom MD Work Phone: [facility] 06-21-2024 13:09-0400 SaO2% (BldA) [Mass fraction] 99 % José Manuel Grissom MD Work Phone: [facility] 06-21-2024 13:09-0400 Systolic blood pressure 140 mm[Hg] José Manuel Grissom MD Work Phone: [facility] Healthcare Encounters Encounter Date Encounter Type Care Provider Facility Start: 05-31-2025 ambulatory [facility] Start: 05-12-2025 End: 05-12-2025 ambulatory AZAM MATHIS [facility] Start: 03-29-2025 End: 03-29-2025 ambulatory [facility] Start: 03-25-2025 ambulatory JESUS MONTENEGRO [facility] Start: 03-15-2025 End: 03-15-2025 Refill José Manuel Grissom MD Work Phone: [facility] Comment on above: Irritable bowel synd thang with diarrhea Start: 01-13-2025 ambulatory [facility] Start: 12-13-2024 End: 12-13-2024 Office outpatient visit 25 minutes José Manuel Grissom MD Work Phone: [facility] Comment on above: Benign essential hyp ertension (CMS/HCC) (Primary Dx); Irritable bowel syndrome with diarrhea; Primary osteoarthritis of both hips; CAD in [place] artery (CMS/HCC); Subclinical hypothyroidism (CMS/HCC) Start: 12-13-2024 End: 12-13-2024 ambulatory JOSÉ MANUEL GRISSOM Not Available Start: 12-13-2024 End: 12-13-2024 Bamboo flowsheet José Manuel Grissom MD Work Phone: [facility] Start: 12-13-2024 End: 12-13-2024 Bamboo flowsheet José Manuel Grissom MD Work Phone: [facility] Start: 11-09-2024 End: 11-09-2024 ambulatory [facility] Start: 10-25-2024 End: 10-25-2024 Bamboo flowsheet Dario Paul [employer]AM PR[employer] OPERATOR Work Phone: [facility] Start: 10-25-2024 End: 10-25-2024 Bamboo flowsheet Dario Paul BEAM PRESS OPERATOR Work Phone: [facility] Start: 10-25-2024 End: 10-25-2024 ambulatory DARIO PAUL Not Available Start: 10-25-2024 End: 10-25-2024 Office outpatient visit 15 minutes Dario Paul BE[employer] PR[employer] OPERATOR Work Phone: [facility] Comment on above: Closed displaced fra cture of pubis with routine healing, unspecified laterality, subsequent encounter (Primary Dx); Acute pain of both hips Start: 10-05-2024 End: 10-05-2024 ambulatory [facility] Start: 09-20-2024 End: 09-20-2024 Bamboo flowsheet Dario Paul BEAM PRESS OPERATOR Work Phone: [facility] Start: 09-20-2024 End: 09-20-2024 Bamboo flowsheet Dario Paul NP Work Phone: [facility] Start: 09-20-2024 End: 09-20-2024 Office outpatient visit 15 minutes Dario Paul NP Work Phone: [facility] Comment on above: Closed displaced fra cture of pubis with routine healing, unspecified laterality, subsequent encounter; Acute pain of both hips Start: 09-20-2024 End: 09-20-2024 ambulatory DARIO PAUL Not Available Start: 08-23-2024 End: 08-23-2024 Bamboo flowsheet Dario Paul BEAM PRESS OPERATOR Work Phone: [facility] Start: 08-23-2024 End: 08-23-2024 Bamboo flowsheet Dario Paul BEAM PRESS OPERATOR Work Phone: [facility] Start: 08-23-2024 End: 08-23-2024 Office outpatient new 30 minutes Dario Paul NP Work Phone: [facility] Comment on above: Closed [...] 08-09-2024 End: 08-09-2024 Telephone encounter Eusebia Ibrahim [facility] Start: 08-09-2024 End: 08-09-2024 [facility] Start: 08-04-2024 End: 08-04-2024 Telephone encounter Saray Rodriguez BEAM PRESS OPERATOR Work Phone: [facility] Start: 07-26-2024 End: 07-26-2024 Orders Only [facility] Comment on above: Closed displaced fra cture of pelvis, unspecified part of pelvis, initial encounter ([facility]-H[facility]) (Primary Dx); Closed nondisplaced fracture of pelvis with routine healing, unspecified part of pelvis, subsequent encounter 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) Start: 07-25-2024 ambulatory [facility] Start: 07-24-2024 End: 07-24-2024 ambulatory [facility] Facility:[facility] Start: 07-24-2024 Emergency department patient visit NELLY DAI [facility] Start: 07-24-2024 End: 07-29-2024 Evaluation and management of inpatient DEEJAY TEJEDA [facility] Start: 06-21-2024 End: 06-21-2024 Bamboo flowsheet José [...] Primary osteoarthritis of both hips; CAD in [place] artery (CMS/HCC); Dyslipidemia (CMS/HCC); Subclinical hypothyroidism ([facility]); Encounter for long-term current use of medication Start: 06-21-2024 End: 06-21-2024 ambulatory JOSÉ MANUEL GRISSOM Not Available Start: 06-10-2024 End: 06-10-2024 Refill José Manuel Grissom MD Work Phone: [facility] Comment on above: Irritable bowel synd thang with diarrhea Start: 06-05-2024 End: 06-07-2024 Telephone encounter Marina Christopher [facility] Comment on above: [facility] TO [facility] (Pt left VM stating she is very upset. She said that her medication should have been sent to [facility] not [facility]. Can you resend RX please? ) Start: 06-02-2024 End: 06-02-2024 Refill José Manuel Grissom MD Work Phone: [facility] Comment on above: Irritable bowel synd thang with diarrhea Start: 01-20-2024 End: 01-20-2024 ambulatory SHAIKH JONATHAN Not Available Start: 12-23-2023 End: 12-23-2023 ambulatory JOSÉ MANUEL GRISSOM Not Available Start: 07-02-2022 End: 07-03-[address] JOSÉ MANUEL GRISSOM Facility: Procedures Date Procedure Procedure Detail Performing Clinician Start: 10-25-2024 Radiologic examinati on pelvis 1/2 views Dario Paul BEAM PRESS OPERATOR Work Phone: Start: 09-20-2024 Radiologic examinati on pelvis 1/2 views Dario Paul BEAM PRESS OPERATOR Work Phone: Start: 08-23-2024 Radiologic examinati on pelvis 1/2 views Dario Paul BEAM PRESS OPERATOR Work Phone: Start: 07-25-2024 Adult depression scr eening assessment Shantanu Conroy RN Plan of Treatment Date Care Activity Detail Author Start: 07-25-2025 Depression Screening Depression Screening [facility] Start: 07-25-2025 Tobacco Screening Tobacco Screening [facility] Start: 07-25-2025 End: 07-25-2025 Patient encounter procedure 07/25/2025 8:30 AM EST Office Visit [facility] [address] [place] [address] Gregoria Rodgers, DO [address] [facility] [address] [place] [address] [facility] Start: 07-06-2025 End: 07-06-2025 Patient encounter procedure 07/06/2025 1:00 PM EDT Office Visit [facility] [address] [place] [address] José Manuel Grissom MD [address] [place] [phone] [facility] Start: 07-04-2025 End: 07-04-2025 Patient encounter procedure 07/04/2025 11:30 AM EDT Office Visit [facility] [address] [place] [address] José Manuel Grissom MD [address] [place] [phone] [facility] Start: 06-21-2025 Medicare Annual Wellness (AWV) Medicare Annual Wellness (AWV) [facility] Start: 05-09-2025 Influenza vaccination Influenza Vaccine (#1) [facility] Start: 12-20-2024 End: 12-20-2024 Patient encounter procedure 12/20/2024 1:00 PM EDT Office Visit [facility] [address] [place] [address] José Manuel Grissom MD [address] [place] [phone] [facility] Start: 12-13-2024 End: 12-13-2024 Patient encounter procedure [facility] Comment on above: Arrived Start: 10-25-2024 End: 10-25-2024 Patient encounter procedure 10/25/2024 1:30 PM EST Office Visit [facility] [address] [place] [phone] Dario Paul, BEAM PRESS OPERATOR [address] [place], [place] [address] [facility] Start: 09-20-2024 End: 09-20-2024 Patient encounter procedure [facility] Comment on above: Closed displaced fracture of pubis with routine healing, unspecified laterality, subsequent encounter Start: 08-23-2024 End: 08-23-2024 Patient encounter procedure 08/23/2024 1:00 PM EST Office Visit [facility] [address] [place] [phone] Dario Paul, BEAM PRESS OPERATOR [address] [place], [place] [address] Closed displaced fracture of pubis with routine healing, unspecified laterality, subsequent encounter [facility] Comment on above: Closed displaced fracture of pubis with routine healing, unspecified laterality, subsequent encounter Start: 08-18-2024 End: 08-18-2024 Patient encounter procedure 08/18/2024 10:45 AM EST [facility] [address] [place] [address] José Manuel Grissom MD [address] [place] [address] Arrived [facility] Comment on above: Arrived Start: 08-09-2024 End: 08-09-2024 Patient encounter procedure 08/09/2024 2:00 PM EST Office Visit [facility] [address] [place] [id number] Barney Chawla MD [address] [place] [address] [facility] Start: 07-26-2024 End: 07-26-2025 CTA Abdominal vessels and Pelvis vessels W contrast IV CT angiogram abdomen and pelvis Imaging Routine Iliac aneurysm (CMS-HCC) Expected: 07/26/2024, Expires: 07/26/2025 [facility] Work Phone: Comment on above: Expected: 07/26/2024, Expires: Start: 07-26-2024 End: 07-26-2025 XR Pelvis 3 Views X-ray pelvis minimum 3 views Imaging Routine Closed nondisplaced fracture of pelvis with routine healing, unspecified part of pelvis, subsequent encounter Expected: 07/26/2024, Expires: 07/26/2025 [facility] Work Phone: Comment on above: Expected: 07/26/2024, Expires: Start: 06-21-2024 End: 06-21-2025 Basic metabolic 1998 panel - Serum or Plasma Basic metabolic panel Lab Routine Benign essential hypertension (CMS/HCC) Expected: 06/21/2024 (Approximate), Expires: 06/21/2025 [facility] [employer] Work Phone: Comment on above: Expected: 06/21/2024 (Approximate), Expi res: 06/21/2025 Start: 06-21-2024 End: 06-21-2025 CBC W Auto Differential panel - Blood CBC and differential Lab Routine Encounter for long-term current use of medication Expected: 06/21/2024 (Approximate), Expires: 06/21/2025 [facility] [employer] Comment on above: Expected: 06/21/2024 (Approximate), Expi res: 06/21/2025 Start: 06-21-2024 End: 06-21-2025 Hepatic function 2000 panel - Serum or Plasma Hepatic function panel Lab Routine Encounter for long-term current use of medication Expected: 06/21/2024 (Approximate), Expires: 06/21/2025 [facility] [employer] Comment on above: Expected: 06/21/2024 (Approximate), Expi res: 06/21/2025 Start: 06-21-2024 End: 06-21-2025 Lipid 1996 panel - Serum or Plasma Lipid panel Lab Routine Dyslipidemia (CMS/HCC) Expected: 06/21/2024 (Approximate), Expires: 06/21/2025 [facility] Comment on above: Expected: 06/21/2024 (Approximate), Expi res: 06/21/2025 Start: 06-21-2024 End: 06-21-2025 Thyrotropin [Units/volume] in Serum or Plasma TSH Lab Routine Subclinical hypothyroidism (CMS/HCC) Expected: 06/21/2024 (Approximate), Expires: 06/21/2025 [facility] Comment on above: Expected: 06/21/2024 (Approximate), Expi res: 06/21/2025 Start: 06-21-2024 End: 06-21-2025 Thyroxine (T4) free [Mass/volume] in Serum or Plasma T4, free Lab Routine Subclinical hypothyroidism (CMS/HCC) Expected: 06/21/2024 (Approximate), Expires: 06/21/2025 [facility] Comment on above: Expected: 06/21/2024 (Approximate), Expi res: 06/21/2025 Start: 06-21-2024 End: 06-21-2025 Triiodothyronine (T3) Free [Mass/volume] in Serum or Plasma T3, free Lab Routine Subclinical hypothyroidism (CMS/HCC) Expected: 06/21/2024 (Approximate), Expires: 06/21/2025 [facility] Comment on above: Expected: 06/21/2024 (Approximate), Expi res: 06/21/2025 Start: 06-21-2024 End: 06-21-2024 Patient encounter procedure [facility] Comment on above: Arrived Start: 05-09-2024 Influenza vaccination Influenza Vaccine (#1) [facility] Start: 2005 Fall Risk Screening Fall Risk Screening [facility] Start: 1990 Administration of varicella zoster vaccine Zoster (Shingles) Vaccine (1 of 2) [facility] Start: 1959 DTaP,Tdap and Td Vaccines (1 - Tdap) DTaP,Tdap and Td Vaccines (1 - Tdap) [facility] Start: 1959 Pneumococcal Vaccine: 65+ Years (1 of 2 - PCV) Pneumococcal Vaccine: 65+ Years (1 of 2 - PCV) [facility] Start: 1946 Pneumococcal Vaccine: 65+ Years (1 of 2 - PCV) Pneumococcal Vaccine: 65+ Years (1 of 2 - PCV) [facility] Start: 1940 Medicare Annual Wellness (AWV) Medicare Annual Wellness (AWV) [facility] Immunizations Immunization Date Immunization Notes Care Provider Fa cility 06-03-2024 Covid-19,mrna, Lnp-s , Pf, 50mcg/0.5ml 12+ Shantanu Conroy RN [facility] 06-03-2024 influenza, high dose seasonal, preservative-free Shantanu Conroy RN [facility] 06-03-2024 RSV, recombinant, protein subunit RSVpreF, adjuvant reconstituted, 0.5 mL, PF Shantanu Conroy RN [facility] 06-03-2024 influenza virus vaccine, unspecified formulation José Manuel Grissom MD Work Phone: [facility] 06-06-2023 Influenza, High-dose , Quadrivalent Shantanu Conroy RN [facility] 06-06-2023 influenza virus vaccine, unspecified formulation José Manuel Grissom MD Work Phone: [facility] 04-08-2022 Influenza Vaccine, Quadrivalent, Adjuvanted Shantanu Conroy RN [facility] 06-07-2021 influenza, seasonal, injectable Shantanu Conroy RN [facility] 05-17-2020 Influenza, High-dose , Quadrivalent Shantanu Conroy RN [facility] 06-18-2019 influenza, high dose seasonal, preservative-free Shantanu Conroy RN [facility] 07-13-2018 influenza, high dose seasonal, preservative-free Shantanu Conroy RN [facility] Payers Date Payer Category Payer Medicare [employer] MEDICARE ADVANTAGE [employer] MEDICARE [id number] 2017-Present [address] [address] [place] [address] [id number] 2017 Medicare (Managed Care) [employer] EDICARE ADVANTAGE [id number] 2017 Medicare HMO [employer] MEDICARE [id number] 1959 Medicare [id number] 1940 Unknown [id number] [id number]. 2.593 1940 Unknown [id number] 2.16840.1.895480.3.579. 2.732 1940 Unknown [id number] 2.16840.1.891189.3.579. 2.1286 1940 Unknown [id number] 2.16840.1.626994.3.579. 2.1286 1940 Unknown [id number] 2.16840.1.686991.3.579. 2.128 1940 Unknown [id number] 2.16840.1.723136.3.579. 2.1286 1940 Unknown [id number] 2.16840.1.141460.3.579. 2.128 1940 Unknown [id number] 2.16.840.1.827274.3.579. 2.1259 1940 Unknown [id number] 2.16.840.1.258083.3.579. 2.9 1940 Unknown [id number] 2.16.840.1.740355.3.579. 2.1258 1940 Unknown [id number] 2.16.840.1.997084.3.579. 2.1258 1940 Unknown [id number] 2.16.840.1.158429.3.579. 2.1258 1940 Unknown [id number] 2.16.840.1.649242.3.579. 2.9 1940 Unknown [id number] 2.16.840.1.451220.3.579. 2.1258 1940 Unknown [id number] 2.16.840.1.971105.3.579. 2.1258 1940 Unknown [id number] 2.16.840.1.913055.3.579. 2.1258 1940 Unknown [id number] 2.16.840.1.893833.3.579. 2.9 1940 Unknown [id number] 2.16.840.1.141961.3.579. 2.1259 Social History Date Type Detail Facility Start: 01-20-2024 End: 07-25-2024 Tobacco smoking status RIIS Ex-smoker [facility] History of tobacco use Current smoker [facility] History of tobacco use Cigarette Smoker [facility] History of tobacco use Passive smoker [facility] Start: 01-20-2024 End: 07-25-2024 Tobacco use and exposure Smokeless tobacco non-user [facility] Start: 01-20-2024 End: 12-13-2024 Alcoholic beverage intake Current drinker of alcohol (finding) [facility] Start: 01-20-2024 End: 12-13-2024 History of Social function [facility] Start: 01-20-2024 End: 12-13-2024 Tobacco use panel [facility] Start: 01-20-2024 Alcohol Comment [facility] Start: 1940 Sex assigned at Not on file [facility] Has the electric, ga s, oil, or water company threatened to shut off services in your home in past 12Mo No [facility] How often to you hav e a drink containing alcohol? Monthly or less [facility] How many standard drinks containing alcohol do you have on a typical day? 1 or 2 [facility] How often do you hav e 6 or more drinks on 1 occasion? Never [facility] Adolescent depressio n screening assessment 0 [facility] Start: 04-13-2015 Sex Female (finding) [facility] Goals Date Patient Goal Desired Activity /State Personal health goal Comment on above: Formatting of this n ote might be different from the original. Evaluation of progress towards goal: Progress to a safe discharge Mental Status Date Assessment Result Facility [facility] Clinical Notes 06-21-2024 to 05-12-2025 José Manuel Grissom MD - 12/13/2024 3:23 PM EDMarianna Grissom MD - 12/13/2024 3:23 PM EDMarianna Grissom MD - 12/13/2024 3:23 PM EDMarianna Grissom MD - 12/13/2024 3:23 PM EDT Note Date & Type Note Facility 05-12-2025 Note [facility] SUBJECTIVE Chief Complaint Patient presents with Hypertension Coronary Artery Disease Larry Handy Pat is a 84 y.o. female here for follow-up. 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 She will particularly notice this when she lays down on her side. She changes positions and sx's resolve. Denies c/o CP, dyspnea, orthopnea, PND, LE edema, dizziness/LH, syncope. She c/o feeling cold all the time - we discussed aging can cause skin thinning. Problem List[1] Medical History[2] Family History[3] Social History[4] Allergies[5] OBJECTIVE Visit Vitals BP 154/88 (BP Location: Right arm, Patient Position: Sitting) Pulse 68 Ht 1.626 m (5' 4 ) Wt 54.9 kg (121 lb) SpO2 94% BMI 20.77 kg/m??? Smoking Status Former BSA 1.57 m??? Medications: Current Medications[6] Physical Exam Vitals reviewed. Constitutional: Appearance: Normal appearance. She is normal weight. HENT: Head: Normocephalic and atraumatic. Right Ear: External ear normal. Left Ear: External ear normal. Eyes: Extraocular Movements: Extraocular movements intact. Conjunctiva/sclera: Conjunctivae normal. Pupils: Pupils are equal, round, and reactive to light. Neck: Vascular: No carotid bruit. Cardiovascular: Rate and Rhythm: Normal rate and regular rhythm. Pulses: Normal pulses. Heart sounds: Normal heart sounds. Pulmonary: Effort: Pulmonary effort is normal. Breath sounds: Normal breath sounds. Abdominal: General: Bowel sounds are normal. Palpations: Abdomen is soft. Musculoskeletal: Cervical back: Neck supple. Right lower leg: No edema. Left lower leg: No edema. Skin: General: Skin is warm and dry. Neurological: General: No focal deficit present. Mental Status: She is alert and oriented to person, place, and time. Psychiatric: Mood and Affect: Mood normal. Behavior: Behavior normal. Thought Content: Thought content normal. Judgment: Judgment normal. Labs: No results found for: EXTCMP , BMPR1A , CBCDIF , BNP , LASAP , RED No visits with results within 6 Month(s) from this visit. Latest known visit with results is: Admission on 01/15/2024, Discharged on 01/16/2024 Component Date Value Ventricular Rate 01/15/2024 36 Atrial Rate 01/15/2024 71 OH Interval 01/15/2024 268 QRS DURATION 01/15/2024 144 QT Interval 01/15/2024 540 QTC CALCULATION(BAZETT) 01/15/2024 417 P Robinson 01/15/2024 67 R-Robinson 01/15/2024 88 T Wave Robinson 01/15/2024 69 07/29/2024 Cr 0.5, BUN 12, K 4, Na 137, eGFR >90 Hgb 9.4, Plt 176, WBC 5.5 Testing/Procedures: DUAL CHAMBER PACEMAKER IMPLANT PROCEDURE NOTE DATE [...] Cardiac telemetry, Blood pressure, continuous pulse oxymetry. POST PROCEDURE EXAM: Patient was hemodynamically stable. [...] 2 weeks Oli Edmonds MD Cardiac Electrophysiology Echocardiogram 02/2023: Conclusion: 1. Normal left ventricular systolic function. LVEF is 60 to 65%. 2. Normal right ventricular size and systolic function. 3. Mild tricuspid regurgitation. 4. Normal right-sided pressures. 5. No pericardial effusion Cardiac catheterization 04/27/1998: 30% proximal circumflex Subtotal obstruction distal half posterior descending 20% proximal RCA Normal overall left ventricular systolic function ASSESSMENT/PLAN: Diagnoses and all orders for this visit: Coronary artery disease involving [place] coronary artery of [place] heart without angina pectoris - Transthoracic echo (TTE) complete; Future Benign hypertensive heart disease without congestive heart failure - metoprolol succinate XL (Toprol-XL) 25 mg 24 hr tablet; Take 1 tablet (25 mg) by mouth in the morning. Do not crush or chew. Abnormal EKG - Transthoracic echo (TTE) complete; Future AV heart block - Transthoracic echo (TTE) complete; Future AV block, 2nd degree S/P placement of cardiac (more content not included)... [facility] 05-12-2025 Note Patient is here toda y for a 6 month follow up. Patient state she has a lot of fatigue, otherwise doing great. Patient states once a day she feels a vibration in her chest, not other complaints just a quick vibration. Patient would like to know what medication is making her cold all the time. Review of Systems Constitutional: Positive for malaise/fatigue. [facility] 12-13-2024 History of Present illness Narrative Associated Problem(s): Primary osteoarthritis of both hips Occasional pain and stiffness but tolerable. Use OTC PRN. Increase activity and walking. Associated Problem(s): Irritable bowel syndrome with diarrhea Symptoms controlled with viberzi and continue. Associated Problem(s): CAD in [place] artery (CMS/HCC) No pain and follow with cardiology. Associated Problem(s): Benign essential hypertension (CMS/HCC) BP controlled and monitor PRN. Associated Problem(s): Subclinical hypothyroidism (CMS/HCC) Normal labs. Images from the original note were not included. Subjective Patient ID: Larry Handy is a 84 y.o. female who presents for Follow-up (6m/Cold fingers/). Follow up HTN, IBS, OA hip, and [...] List Items Addressed This Visit CAD in [place] artery (CMS/HCC) No pain and follow with cardiology. Irritable bowel syndrome with diarrhea Symptoms controlled with viberzi and continue. Primary osteoarthritis of both hips Occasional pain and stiffness but tolerable. Use OTC PRN. Increase activity and walking. Benign essential hypertension (CMS/HCC) - Primary BP controlled and monitor PRN. Subclinical hypothyroidism (CMS/HCC) Normal labs. documented in this encounter [facility] 11-09-2024 Note [facility] Cardiology Clinic Note Chief Complaint: Patient [...] 12-lead EKG 08/12/2022 (more content not included)... [facility] 10-25-2024 History of Present illness Narrative Images from the original note were not included. HISTORY OF PRESENT ILLNESS: EST PT Larry Handy is an 84 y.o. @ female. (EST PT) - RECHECK PUBIS FX 07/24/24 (3 MONTHS, 2 DAYS) XRAY PELVIS TODAY, 10/25/24 IN EPIC XRAY PELVIS 09/20/24, 08/23/24 IN EPIC XRAY PELVIS 07/24/24 [facility] FINISHED HOME PT. MILD PAIN IN GROIN TODAY, NOTES SOME DAYS ARE WORSE THAN OTHERS. WALKING WITH A CANE. OCCAS PAIN DOWN LT LEG. DOES NOT WAKE AT HS. LUI: On 07/24/24 patient was walking at home and tripped. Fell and developed severe pain in pelvis and groin. Not able to walk or stand and taken to [place] ER, had CT. Transferred to [facility] and seen by ortho and vascular. Both stated not surgical and started PT. Transferred to [facility] 07/29. Discharged home and is doing PT. [...] Use: Not At Risk (07/25/2024) Received from [employer] Frequency of Alcohol Consumption: Monthly or [...] ALMA. Severe LT hip osteoarthritis. Dario Paul DOOR TO DOOR SALES REPRESENTATIVE-NURSE ORTHOPEDIC Procedures Orders Placed This Encounter Procedures XR [...] requiring urgent evaluation. documented in this encounter [facility] 09-20-2024 History of Present illness Narrative Images from the original note were not included. HISTORY OF PRESENT ILLNESS: EST PT Larry Handy is an 84 y.o. @ female. EST PT, RECHECK PUBIS FX 07/24/24 (8WKS 2DAYS) DR GRISSOM REFERRAL XRAY PELVIS TODAY 09/20/24 EPIC XRAY PELVIS 08/23/24 EPIC XRAY PELVIS 07/24/24 [facility] HOME PT NOW NOTES NO LONGER USING [...] to walk or stand and taken to [place] ER, had CT. Transferred to [facility] and seen by ortho and vascular. Both stated not surgical and started PT. Transferred to [facility] 07/29. Discharged home and is doing PT. [...] Use: Not At Risk (07/25/2024) Received from [facility] [employer] Frequency of Alcohol Consumption: Monthly or [...] ALMA. Severe LT hip osteoarthritis. Dario Paul DOOR TO DOOR SALES REPRESENTATIVE-NURSE ORTHOPEDIC Procedures Orders Placed This Encounter Procedures XR [...] develop for requiring urgent evaluation. Dario Paul DOOR TO DOOR SALES REPRESENTATIVE-NURSE ORTHOPEDIC documented in this encounter [facility] 08-23-2024 History of Present illness Narrative Images from the original note were not included. NAME: Larry Handy : 1940 HISTORY OF PRESENT ILLNESS: NEW PT Larry Handy is an 84 y.o. @ female. NEW PT (DR GRISSOM REFERRAL) WITH PELVIS INJURY 07/24/24 (4WKS 2DAYS) DR GRISSOM REFERRAL XRAY PELVIS 07/24/24 [place] On 07/24/24 patient was walking at home and tripped. Fell and developed severe pain in pelvis and groin. Not able to walk or stand and taken to [place] ER, had CT. Transferred to [facility] and seen by ortho and vascular. Both stated not surgical and started PT. Transferred to [facility] 07/29. Discharged home and is doing PT. [...] Use: Not At Risk (07/25/2024) Received from [employer] Frequency of Alcohol Consumption: Monthly or [...] and severe LT hip osteoarthritis. Dario Paul DOOR TO DOOR SALES REPRESENTATIVE-NURSE ORTHOPEDIC Procedures Orders Placed This Encounter Procedures XR pelvis 1 or 2 views Order Specific Question: Reason for exam: Answer: PAIN ASSESSMENT: ICD-10-CM 1. Closed displaced fracture of pubis with routine healing, unspecified laterality, subsequent encounter S32.509D Ambulatory referral to Orthopaedic Surgery XR pelvis 1 or 2 views 2. Acute pain of both hips M25.551 M25.552 PLAN: I reviewed xray and CT findings from [facility] and xray from today with the patient [...] develop for requiring urgent evaluation. Dario Paul DOOR TO DOOR SALES REPRESENTATIVE-NURSE ORTHOPEDIC documented in this encounter [facility] 08-18-2024 History of Present illness Narrative Associated [...] f/u). Follow up from hospital 07/24-07/29 and [facility] 07/29-08/07 after pubic rami fractures and pelvic hematoma. Patient was walking at home and tripped. Fell and developed severe pain in pelvis and groin. Not able to walk or stand and taken to ER. CT showed bilateral minimally displaced pubic rami fractures and pelvic hematoma. Transferred to [facility] and seen by ortho and vascular. Both stated not surgical and started PT. Transferred to [facility] 07/29 and did well. Discharged home and [...] to Orthopaedic Surgery documented in this encounter [facility] 08-09-2024 Miscellaneous Notes Patient called in and had to cancel her scheduled 08/09 appointment stated that she does not have transportation since leaving the care facility patient would like to know if there are any alternative options or if theres a provider who may be closer confirmed [phone] as a good callback number [facility] called back to follow up on previous request. Informed artist representative that we don't know who takes patient's insurance so it is their responsibility to contact patient's insurance and find an orthopod within network. They asked if anyone from our office goes to [place] - advised we only have privileges in [facility] and clinic at [facility]. Google searched orthopods at [facility] and found [facility] and [facility]... gave the caller both numbers. documented in this encounter [facility] 08-09-2024 Telephone encounter Note Patient called in and had to cancel her scheduled 08/09 appointment stated that she does not have transportation since leaving the care facility patient would like to know if there are any alternative options or if theres a provider who may be closer confirmed [phone] as a good callback number [facility] 08-09-2024 Telephone encounter Note [facility] called back to follow up on previous request. Informed artist representative that we don't know who takes patient's insurance so it is their responsibility to contact patient's insurance and find an orthopod within network. They asked if anyone from our office goes to [place] - advised we only have privileges in [facility] and clinic at [facility]. Google searched orthopods at [facility] and found [facility] and [facility]... gave the caller both numbers. [facility] 08-04-2024 Telephone encounter Note Rx for veberzi is sent for this [facility] patient, # [phone] with 0 refills. [facility] 08-04-2024 Miscellaneous Notes Rx for veberzi is sent for this [facility] patient, # [phone] with 0 refills. documented in this encounter [facility] 06-21-2024 History of Present illness Narrative Associated Problem(s): Primary osteoarthritis of both hips Occasional pain and stiffness but tolerable. Use OTC PRN. Increase activity and walking. Associated Problem(s): Irritable bowel syndrome with diarrhea Symptoms controlled with viberzi and continue. Associated Problem(s): CAD in [place] artery (CMS/HCC) No pain and follow with [...] List Items Addressed This Visit CAD in [place] artery (CMS/HCC) No pain and follow with [...] free T3, free documented in this encounter [facility] Healthcare Evaluation note Diagnosis Irritable bowel syndrome with diarrhea Irritable bowel syndrome [facility] Diagnosis Benign essential hypertension (CMS/HCC)- Primary Essential hypertension, benign Irritable bowel syndrome with diarrhea Irritable bowel syndrome Primary osteoarthritis of both hips CAD in [place] artery (CMS/HCC) Onychomycosis 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- Primary Second degree AV block Other second degree atrioventricular block Benign essential hypertension (CMS/HCC) Essential hypertension, benign Hospital discharge follow-up Other follow-up examination Benign essential hypertension (CMS/HCC)- Primary Essential hypertension, benign Irritable bowel syndrome with diarrhea Irritable bowel syndrome Primary osteoarthritis of both hips CAD in [place] artery (CMS/HCC) Dyslipidemia (CMS/HCC) Other and unspecified hyperlipidemia Subclinical hypothyroidism (CMS/HCC) Other specified acquired hypothyroidism Encounter for long-term current use of medication [facility] Diagnosis Benign essential hypertension (CMS/HCC)- Primary Essential hypertension, benign Irritable bowel syndrome with diarrhea Irritable bowel syndrome Primary osteoarthritis of both hips CAD in [place] artery (CMS/HCC) Onychomycosis 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- Primary Second degree AV block Other second degree atrioventricular block Benign essential hypertension (CMS/HCC) Essential hypertension, benign Hospital discharge follow-up Other follow-up examination Benign essential hypertension (CMS/HCC)- Primary Essential hypertension, benign Irritable bowel syndrome with diarrhea Irritable bowel syndrome Primary osteoarthritis of both hips CAD in [place] artery (CMS/HCC) Dyslipidemia (CMS/HCC) Other and unspecified hyperlipidemia Subclinical hypothyroidism (CMS/HCC) Other specified acquired hypothyroidism Encounter for long-term current use of medication Irritable bowel syndrome with diarrhea- Primary Irritable bowel syndrome [facility] Diagnosis Benign essential hypertension (CMS/HCC)- Primary Essential hypertension, benign Irritable bowel syndrome with diarrhea Irritable bowel syndrome Primary osteoarthritis of both hips CAD in [place] artery (CMS/HCC) Onychomycosis 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- Primary Second degree AV block Other second degree atrioventricular block Benign essential hypertension (CMS/HCC) Essential hypertension, benign Hospital discharge follow-up Other follow-up examination Benign essential hypertension (CMS/HCC)- Primary Essential hypertension, benign Irritable bowel syndrome with diarrhea Irritable bowel syndrome Primary osteoarthritis of both hips CAD in [place] (CMS/HCC) Dyslipidemia ([facility]/HCC) Other and unspecified hyperlipidemia Subclinical hypothyroidism ([facility]/HCC) Other specified acquired hypothyroidism Encounter for long-term current use of medication Closed displaced fracture of pubis with routine healing, unspecified laterality, subsequent encounter- Primary documented in this encounter [facility]* Diagnosis Benign essential hypertension (CMS/HCC)- Primary Essential hypertension, benign Irritable bowel syndrome with diarrhea Irritable bowel syndrome Primary osteoarthritis of both hips CAD in [place] (CMS/HCC) Onychomycosis 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- Primary Second degree AV block Other second degree atrioventricular block Benign essential hypertension (CMS/HCC) Essential hypertension, benign Hospital discharge follow-up Other follow-up examination Benign essential hypertension (CMS/HCC)- Primary Essential hypertension, benign Irritable bowel syndrome with diarrhea Irritable bowel syndrome Primary osteoarthritis of both hips CAD in [place] (CMS/HCC) Dyslipidemia (CMS/HCC) Other and unspecified [...] Primary osteoarthritis of both hips CAD in [place] (CMS/HCC) Onychomycosis 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- Primary Second degree AV block Other second degree atrioventricular block Benign essential hypertension (CMS/HCC) Essential hypertension, benign Hospital discharge follow-up Other follow-up examination Benign essential hypertension (CMS/HCC)- Primary Essential hypertension, benign Irritable bowel syndrome with diarrhea Irritable bowel syndrome Primary osteoarthritis of both hips CAD in [place] (CMS/HCC) Dyslipidemia (CMS/HCC) Other and unspecified hyperlipidemia Subclinical hypothyroidism ([facility]) Other specified acquired hypothyroidism Encounter for long-term current use of medication Closed displaced fracture of pubis with routine healing, unspecified laterality, subsequent encounter- Primary Closed displaced fracture of pubis with routine healing, unspecified laterality, subsequent encounter- Primary Acute pain of both hips Primary osteoarthritis of left hip documented in this [facility]* Diagnosis Irritable bowel syndrome with diarrhea Irritable bowel syndrome documented in this encounter [facility]* Diagnosis Benign essential hypertension (CMS/HCC)- Primary Essential hypertension, benign Irritable bowel syndrome with diarrhea Irritable bowel syndrome Primary osteoarthritis of both hips CAD in [place] (CMS/[facility]) Onychomycosis 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- Primary Second degree AV block Other second degree atrioventricular block Benign essential hypertension (CMS/HCC) Essential hypertension, benign Hospital discharge follow-up Other follow-up examination Benign essential hypertension (CMS/HCC)- Primary Essential hypertension, benign Irritable bowel syndrome with diarrhea Irritable bowel syndrome Primary osteoarthritis of both hips CAD in [place] (CMS/HCC) Dyslipidemia (CMS/HCC) Other and unspecified hyperlipidemia Subclinical hypothyroidism ([facility]) Other specified acquired hypothyroidism Encounter for long-term current use of medication Closed displaced fracture of pubis with routine healing, unspecified laterality, subsequent encounter- Primary Closed displaced fracture of pubis with routine healing, unspecified laterality, subsequent encounter Acute pain of both hips documented in this encounter [facility]* Diagnosis Closed displaced fracture of pelvis, unspecified part of pelvis, initial encounter ([facility])- Primary Closed nondisplaced fracture of pelvis with routine healing, unspecified part of pelvis, subsequent encounter [facility] Diagnosis 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 Benign essential hypertension ([facility]/HCC)- Primary Essential hypertension, benign Irritable bowel syndrome with diarrhea Irritable bowel syndrome Primary osteoarthritis of both hips CAD in [place] (CMS/HCC) Onychomycosis 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- Primary Second degree AV block Other second degree atrioventricular block Benign essential hypertension ([facility]/HCC) Essential hypertension, benign Hospital discharge follow-up Other follow-up examination Benign essential hypertension (CMS/HCC)- Primary Essential hypertension, benign Irritable bowel syndrome with diarrhea Irritable bowel syndrome Primary osteoarthritis of both hips CAD in [place] (CMS/[facility]) Dyslipidemia (CMS/[facility]) Other and unspecified hyperlipidemia Subclinical hypothyroidism ([facility]) Other specified acquired hypothyroidism Encounter for long-term current use of medication Closed displaced fracture of pubis with routine healing, unspecified laterality, subsequent encounter- Primary Closed displaced fracture of pubis with routine healing, unspecified laterality, subsequent encounter- Primary Acute pain of both hips documented in this encounter [facility]* Diagnosis Benign essential hypertension (CMS/HCC)- Primary Essential hypertension, benign Irritable bowel syndrome with diarrhea Irritable bowel syndrome Primary osteoarthritis of both hips CAD in [place] ([facility]) Onychomycosis 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- Primary Second degree AV block Other second degree atrioventricular block Benign essential hypertension (CMS/HCC) Essential hypertension, benign Hospital discharge follow-up Other follow-up examination Benign essential hypertension (CMS/HCC)- Primary Essential hypertension, benign Irritable bowel syndrome with diarrhea Irritable bowel syndrome Primary osteoarthritis of both hips CAD in [place] (CMS/HCC) Dyslipidemia (CMS/HCC) Other and unspecified hyperlipidemia Subclinical hypothyroidism (CMS/HCC) Other specified acquired hypothyroidism Encounter for long-term current use of medication Closed displaced fracture of pubis with routine healing, unspecified laterality, subsequent encounter- Primary Benign essential hypertension (CMS/HCC)- Primary Essential hypertension, benign Irritable bowel syndrome with diarrhea Irritable bowel syndrome Primary osteoarthritis of both hips CAD in [place] (CMS/HCC) Subclinical hypothyroidism (CMS/HCC) Other specified acquired hypothyroidism documented in this encounter [facility] Diagnosis Benign essential hypertension- Primary Essential hypertension, benign Irritable bowel syndrome with diarrhea Irritable bowel syndrome Primary osteoarthritis of both hips CAD in [place] Onychomycosis 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- Primary Second degree AV block Other second degree atrioventricular block Benign essential hypertension Essential hypertension, benign Hospital discharge follow-up Other follow-up examination Benign essential hypertension- Primary Essential hypertension, benign Irritable bowel syndrome with diarrhea Irritable bowel syndrome Primary osteoarthritis of both hips CAD in [place] Dyslipidemia Other and unspecified hyperlipidemia Subclinical hypothyroidism Other specified acquired hypothyroidism Encounter for long-term current use of medication Closed displaced fracture of pubis with routine healing, unspecified laterality, subsequent encounter- Primary Benign essential hypertension- Primary Essential hypertension, benign Irritable bowel syndrome with diarrhea Irritable bowel syndrome Primary osteoarthritis of both hips CAD in [place] Subclinical hypothyroidism Other specified acquired hypothyroidism Irritable bowel syndrome with diarrhea Irritable bowel syndrome documented in this encounter [facility] HealthcareInstructionsNot on filedocumented in this encounterProSelect [facility] SystemInstructionsNot on filedocumented in this encounterProUniversity [facility] Summary Purpose Family History No Family History [...] and content) DATE CREATED AUTHOR 07/07/2022 [facility] DATE CREATED AUTHOR AUTHOR'S ORGANIZ ATION 07/27/2024 [facility] DATE CREATED AUTHOR AUTHOR'S ORGANIZ ATION 08/02/2024 [facility] DATE CREATED AUTHOR AUTHOR'S ORGANIZ ATION 08/09/2024 [facility] DATE CREATED AUTHOR AUTHOR'S ORGANIZ ATION 12/14/2024 [facility] DATE CREATED AUTHOR AUTHOR'S ORGANIZ ATION 06/01/2025 [facility] Reason for Visit (unrecogniz ed section [...] José Manuel Grissom MD [address] [place] [address] Phone: tel: fax: Jr. David Ramirez, DO [address] [facility] [address] [place] [address] Phone: tel: fax: Referral ID Status Reason Start Date Expiration Date V isits Requested Visits Authorized [id number] Closed Specialty Services Required 08/18/2024 02/14/2025 1 1 Reason Onset Date Comments Med Refill 06/02/2024 Reason Onset Date Comments RX SENT TO WRONG PHARMACY 06/05/2024 Pt bambi SCHAFER stating she is very upset. She said that her medication should have been sent to [facility]. Can you resend RX please? Reason Comments Follow-up Reason Comments Follow-up 6mCold fingers Reason Onset Date Comments Med Refill 03/15/2025 Care Teams (unrecognized sec tion and content) Group Cio Relationship Specialty Start Date End Date José Manuel Grissom MD [address] [place] [phone] PCP - General Family Medicine 12/23/23 Group Cio Relationship Specialty Start Date End Date José Manuel Grissom MD [address] [place] [phone] PCP - General Family Medicine 12/23/23 Group Cio Relationship Specialty Start Date End Date José Manuel Grissom MD [address] [place] [phone] PCP - General Family Medicine 12/23/23 Group Cio Relationship Specialty Start Date End Date José Manuel Grissom MD [address] [place] [address] PCP - General Family Medicine 12/23/23 Group Cio Relationship Specialty Start Date End Date José Manuel Grissom MD [address] [place] [address] PCP - General Family Medicine 12/23/23 Group Cio Relationship Specialty Start Date End Date José Manuel Grissom MD [address] [place] [phone] PCP - General Family Medicine 12/23/23 Group Cio Relationship Specialty Start Date End Date José Manuel Grissom MD [address] [place] [phone] PCP - General Family Medicine 12/23/23 Group Cio Relationship Specialty Start Date End Date José Manuel Grissom MD [address] [place] [address] PCP - General Family Medicine 12/23/23 Group Cio Relationship Specialty Start Date End Date José Manuel Grissom MD [address] [place] [address] PCP - General Family Medicine 12/23/23 Group Cio Relationship Specialty Start Date End Date José Manuel Grissom MD [address] [place] [address] PCP - [facility] 12/23/23 Group Cio Relationship Specialty Start Date End Date José Manuel Grissom MD [address] [place] [phone] PCP - [facility] 12/23/23 Group Cio Relationship Specialty Start Date End Date José Manuel Grissom MD [address] [place] [phone] PCP - [facility] 12/23/23 Group Cio Relationship Specialty Start Date End Date José Manuel Grissom MD [address] [place] [phone] [facility] 12/23/23 Group Cio Relationship Specialty Start Date End Date José Manuel Grissom MD [address] [place] [phone] [facility] 12/23/23 Group Cio Relationship Specialty Start Date End Date José Manuel Grissom MD [address] [place] [phone] [facility] 12/23/23 FOR RECORDS PERTAINING TO PATIENTS WHO [...] BE BASED ON THE PRIMARY CLINICAL RECORDS. [facility] [employer] [facility]. provides no warranty or guarantee of the accuracy or completeness of information in this document.
== END 2025-06-09 12:53 | disposition home or self-care (01) ==
LOC: CARD 12:52
PROVIDERS: PCP Family Medicine; Visit Provider Nurse Practitioner Family
DX: I25.10 Atherosclerotic heart disease of native coronary artery without angina pectoris (principal); R94.31 Abnormal electrocardiogram [ECG] [EKG]; I44.30 Unspecified atrioventricular block
CPT/HCPCS: 93306